=== PATIENT | male | born 1950 | race Caucasian/White ===

== ENCOUNTER → 2016-04-20 | Outpatient (CLI) | payer OTHER ==
[~2016-04-20] MED LIST: AMIO200T4 PO; ASPI81TA28 PO; ATOR-22 PO; CEFT1INJ26 IV; CPR250 PO; CSD50 PO; DGRI80 INJ; DUTA0.5C PO; ERGO500037 PO; FINA5TAB PO; FRS/40 PO; LNX25 PO; METO-217 PO; OXYC5TAB PO; PARO1TAB27 PO; PHEN-775 PO; POTA20TA16 PO; QUIN20TA30 PO; SULF800T23 PO; TAMS0.4C38 PO; TPRSR50 PO; XRL10 PO; ZNTT/150 PO
--- NOTE | 2016-04-20 15:41 | DIAGNOSTIC IMAGING REPORT ---
RENAL ULTRASOUND HISTORY: Follow-up HYDRONEPHROSIS COMPARISON: KUB 02/01/2016. Abdomen and pelvis CT 10/28/2015. FINDINGS: Right kidney: 11.5 cm. No hydronephrosis. Normal corticomedullary differentiation and cortical thickness. Left kidney: 9.1 cm. No hydronephrosis. Mild to moderate cortical thinning. Normal corticomedullary differentiation. Bladder: Bladder is decompressed and therefore not well evaluated. However, a distal portion of a ureteral stent is identified within the bladder. IMPRESSION: 1. The hydronephrosis has resolved. 2. Mild/moderate left renal atrophy, unchanged. 3. Bladder is not well evaluated due to underdistention. There appears to be a portion of a ureteral stent within the bladder. Electronically signed by: Stan Treviño M.D. 04/20/2016 3:39 PM Dictated Date/Time: 04/20/2016 3:36 PM
== END | disposition home or self-care (01) ==
LOC: C.ULTR 15:11
PROVIDERS: ATTEND Urology
DX: N13.30 Unspecified hydronephrosis (principal); R93.41 Abnormal radiologic findings on diagnostic imaging of renal pelvis, ureter, or bladder

== ENCOUNTER 2016-05-25 12:34 | Day surgery (SDC) | payer OTHER ==
[2016-05-16 09:50] VITALS: BMI 32.0
--- NOTE | 2016-05-16 10:28 | PAT Medication Instructions ---
Service Date May 16, 2016. Current Home Medication List Amiodarone Hcl (Cordarone), 200 MG PO QAM Atorvastatin (Lipitor), 1 TAB PO QAM Degarelix Acetate (Firmagon), 1 DOSE INJ MONTHLY Digoxin (Digoxin), 0.25 MG PO QAM Ergocalciferol (Vitamin D 77265 Unit), 1 CAP PO WK Finasteride (Proscar), 5 MG PO QAM Furosemide (Lasix), 40 MG PO BID Metoprolol Succinate (Toprol Xl), 50 MG PO QAM Paroxetine (Paxil), 10 MG PO QAM Potassium Ext Rel (Klor-Con), 20 MEQ PO QAM Quinapril Hcl (Quinapril Hcl), 1 TAB PO QAM Ranitidine (Zantac), 150 MG PO DAILY PRN for Dyspepsia Rivaroxaban (Xarelto), 15 MG PO QPM Tamsulosin Hcl (Flomax), 1 CAP PO HS Medication Instructions For Your Scheduled Surgery Degarelix Acetate (Firmagon), 1 DOSE INJ MONTHLY (continue as usual) Rivaroxaban (Xarelto), 15 MG PO QPM (Dr. Almeida's office will call with instructions) - Hold the following medications the morning of surgery: Quinapril Hcl (Quinapril Hcl), 1 TAB PO QAM Potassium Ext Rel (Klor-Con), 20 MEQ PO QAM Furosemide (Lasix), 40 MG PO BID Ergocalciferol (Vitamin D 88054 Unit), 1 CAP PO WK - Take the following medications the morning of surgery with a sip of water: Ranitidine (Zantac), 150 MG PO DAILY PRN for Dyspepsia Metoprolol Succinate (Toprol Xl), 50 MG PO QAM Paroxetine (Paxil), 10 MG PO QAM Finasteride (Proscar), 5 MG PO QAM Digoxin (Digoxin), 0.25 MG PO QAM Atorvastatin (Lipitor), 1 TAB PO QAM Amiodarone Hcl (Cordarone), 200 MG PO QAM - Take the following medications as scheduled the night before surgery: Tamsulosin Hcl (Flomax), 1 CAP PO HS Furosemide (Lasix), 40 MG PO BID If you have any questions please call us at [phone] or [phone] ( Jessica) or [phone]
--- NOTE | 2016-05-16 11:01 | DIAGNOSTIC IMAGING REPORT ---
CHEST PREADMISSION(PA/LAT) CLINICAL HISTORY: PAT preoperative evaluation COMPARISON STUDY: No previous studies for comparison. FINDINGS: The bones soft tissues and hemidiaphragms are normal. The cardiomediastinal silhouette is normal. The lungs are clear. The pulmonary vasculature is normal. IMPRESSION: Negative chest. Electronically signed by: Joey Ignacio M.D. 05/16/2016 10:59 AM Dictated Date/Time: 05/16/2016 10:59 AM
[2016-05-16 11:23] LABS: BASO % 0.2 %; BASO ABS # 0.01 K/uL (0-0.2); COMPLETE YES; EOS % 1.8 %; HEMATOCRIT 33.2 % (42-52); IG% 0.3 %; LYMPH % 5.7 %; LYMPH ABS # 0.37 K/uL (1.2-3.4); MEAN CELL VOLUME 84.3 fL (80-100); MEAN CORPUSCULAR HEMOGLOBIN 28.2 pg (25-34); MEAN CORPUSCULAR HGB CONC 33.4 g/dl (32-36); MEAN PLATELET VOLUME 8.6 fL (7.4-10.4); MONO % 10.3 %; NEUT % 81.7 %; PLATELET COUNT 245 K/uL (130-400); RED BLOOD COUNT 3.94 M/uL (4.7-6.1); WHITE BLOOD COUNT 6.51 K/uL (4.8-10.8)
[2016-05-16 11:49] LABS: URINE APPEARANCE TURBID (CLEAR); URINE BILIRUBIN NEG (NEG); URINE COLOR ORANGE; URINE EPITHELIAL CELL AUTO 0-5 /lpf (0-5); URINE NITRITE POS (NEG); URINE PH 6.5 (4.5-7.5); URINE SPECIFIC GRAVITY 1.022 (1.000-1.030); UROBILINOGEN NEG (NEG)
[2016-05-16 11:50] LABS: MANUAL MICROSCOPIC REQUIRED? NO; REVIEW REQ? YES
[2016-05-16 12:08] LABS: BUN/CREATININE RATIO 16.1 (10-20); CALCIUM 9.1 mg/dl (8.5-10.1); POTASSIUM 4.6 mmol/L (3.5-5.1)
[2016-05-16 12:13] LABS: PROSTATE SPECIFIC ANTIGEN 0.278 ng/ml (0.000-4.000)
[~2016-05-25] VITALS: Ht 170.2 cm; Wt 95.0 kg
[~2016-05-25 12:34] MED LIST changes: -ASPI81TA28 PO; +ATROPINE SULFATE 0.1 MG/ML 5ML SYR IV PRN; -CEFT1INJ26 IV; +CIPROFLOXACIN / D5W 400 MG IV SCH; -CPR250 PO; -CSD50 PO; -DUTA0.5C PO; +EpHEDrine SULFATE INJ 50 MG/ML AMP IV PRN; +FENTANYL CITRATE INJ 50 MCG/1 ML 2 ML VIAL IV PRN; +HYDROmorphone INJ 1 MG/ML SYR IV PRN; +LACTATED RINGER'S 1000ML 1,000 ML IV SCH; +ONDANSETRON INJ 2 MG/ML 2 ML VIAL IV PRN; -OXYC5TAB PO; -PHEN-775 PO; -SULF800T23 PO; -TPRSR50 PO
[2016-05-25] MEDS ORDERED: ASPI81TA28 PO (13:04)
[2016-05-25 13:08] VITALS: BP 159/72; PULSE 70; TEMP 36.8; O2SAT 99; Ht 170.2 cm; Wt 95.0 kg
--- NOTE | 2016-05-25 13:41 | History & Physical Bridge Note ---
H&P Re-Evaluation Bridge Note: I have examined the patient, reviewed the History & Physical and in the interval since the performance of the History & Physical I have noted the following changes of clinical significance: No changes noted
[2016-05-25] MEDS ORDERED: SULF800T23 PO (13:49)
[2016-05-25] MEDS ORDERED: VANCOMYCIN 1GM/270ML NSS ONE (13:52)
[2016-05-25] MEDS ORDERED: VANCOMYCIN 1GM/270ML NSS IV ONE (14:00)
[2016-05-25] MEDS ORDERED: LIDOCAINE HCL 2% 2 ML VIAL (20MG/ML) ONE (14:15)
[2016-05-25] MEDS ORDERED: PROPOFOL IV EMULSION 10 MG/ML 20 ML VIAL IV ONE (14:15)
[2016-05-25] MEDS ORDERED: FENTANYL CITRATE INJ 50 MCG/1 ML 2 ML VIAL ONE (14:15)
[2016-05-25] MEDS ORDERED: ONDANSETRON INJ 2 MG/ML 2 ML VIAL ONE (14:15)
[2016-05-25] MEDS ORDERED: MIDAZOLAM HCL 1 MG/ML 2ML VIAL ONE (14:15)
[2016-05-25] MEDS ORDERED: DEXAMETHASONE SOD INJ 4 MG/ML VIAL ONE (14:15)
[2016-05-25] MEDS ORDERED: CONRAY 30% 150ML BOTTLE ONE (15:11)
[2016-05-25] MEDS ORDERED: PHEN-775 PO (16:05)
--- NOTE | 2016-05-25 16:06 | Discharge Instructions ---
Discharge Instructions Date of Service May 25, 2016. Admission Reason for Admission: Advanced prostate cancer with ureteral obstruction Discharge Discharge Diagnosis / Problem: Bilateral stent exchange Discharge Goals Goal(s): Improve function, Improve disease control, Therapeutic intervention Activity Recommendations Activity Limitations: resume your previous activity Lifting Limitations: gradually increase as tolerated Exercise/Sports Limitations: rest today May Resume Sexual Activity: when tolerated Shower/Bathe: tomorrow Driving or Machine Use: resume 1 day after discharge . Discharge Diet Recommended Diet: Regular Diet (good fluid intake) Procedures Procedures Performed: cystoscopy, urethral dilation, bilateral ureteral stent exchange with right retrograde pyelography and left nephrostogram Pending Studies Studies pending at discharge: no Medical Emergencies . Who to Call and When: Medical Emergencies: If at any time you feel your situation is an emergency, please call 911 immediately. . Non-Emergent Contact Non-Emergency issues call your: Urologist Call Non-Emergent contact if: you have a fever, temperature is above 101, your pain is not controlled, your pain is worsening, your pain is unusual for you, your pain is concerning you, you have any medication questions . . "Provider Documentation" section prepared by Braxton Almeida. VTE Core Measure Inpt VTE Proph given/why not?: SCD's
--- NOTE | 2016-05-25 16:08 | [facility] Post Operative Brief Note ---
Immediate Operative Summary Operative Date May 25, 2016. Pre-Operative Diagnosis Advanced prostate cancer with bilateral ureteral obstruction, and indwelling bilateral ureteral stents Post-Operative Diagnosis Same, meatal stenosis Procedure(s) Performed Cystoscopy, urethral dilation, bilateral ureteral stent exchange with right retrograde pyelography and left nephrostogram Surgeon Dr.H. Almeida [employer] Airconditioning Mechanic Surgeon(s) NA Estimated Blood Loss 0ml Findings Good bilateral ureteral stent position after completion Specimens no specimens per surgeon Drains 7 fr 26 cm R ureteral stent, 7 fr 24 cm L ureteral stent, L nephrstmy cappd Anesthesia GALMA Complication(s) None Disposition Recovery Room / PACU
--- NOTE | 2016-05-25 16:11 | Anesthesiology Progress Note ---
Anesthesia Post Op Note Date & Time May 25, 2016 at 16:11 Vital Signs Pain Intensity: 0 Vital Signs Past 12 Hours Date Time Temp Pulse Resp B/P Pulse Ox O2 Delivery O2 Flow Rate FiO2 05/25/16 16:03 Nasal Cannula 3 05/25/16 16:00 73 18 157/72 100 Mask 5 05/25/16 15:50 71 18 151/76 100 Mask 10 05/25/16 15:47 37.1 72 18 130/74 100 Mask 10 05/25/16 13:08 36.8 70 20 159/72 99 Room Air Notes Mental Status: alert / awake / arousable, participated in evaluation Pt Amnestic to Procedure: Yes Nausea / Vomiting: adequately controlled Pain: adequately controlled Airway Patency, RR, SpO2: stable & adequate BP & HR: stable & adequate Hydration State: stable & adequate Anesthetic Complications: no major complications apparent
[2016-05-25] MEDS ORDERED: PHENAZOPYRIDINE HCL 200 MG TAB PO PRN (16:15)
[2016-05-25] MEDS ORDERED: OXYCODONE/ACETAMINOPHEN 5-325 TAB PO PRN (16:15)
[2016-05-25 16:30] VITALS: BP 153/72; PULSE 70; TEMP 37; O2SAT 94
[2016-05-25 17:00] VITALS: BP 125/64; PULSE 78; TEMP 36.6; O2SAT 100
--- NOTE | 2016-05-25 17:19 | DIAGNOSTIC IMAGING REPORT ---
FLUOROSCOPIC IMAGES FROM CYSTOSCOPY WITH BILATERAL STENT EXCHANGE CLINICAL HISTORY: Cystoscopy with stent exchange. COMPARISON STUDY: KUB May 08, 2016. Fluoroscopy time: 2 minutes and 4 seconds. FINDINGS: 11 fluoroscopic images were obtained. These images demonstrate bilateral ureteral stent exchange. A left-sided nephrostomy is likely in place. The stents are appropriately positioned. Moderate bilateral hydronephrosis is present. IMPRESSION: Fluoroscopic images demonstrating bilateral ureteral stent exchange. Electronically signed by: Lee Guo M.D. 05/25/2016 5:18 PM Dictated Date/Time: 05/25/2016 5:15 PM
[2016-05-25 17:30] VITALS: BP 122/69; PULSE 74; TEMP 36.6; O2SAT 100
--- NOTE | 2016-05-25 18:19 | OPERATIVE REPORT ---
DATE OF OPERATION: 05/25/2016 PREOPERATIVE DIAGNOSES: Advanced prostate cancer with bilateral indwelling ureteral stents, history of ureteral obstruction and renal failure. POSTOPERATIVE DIAGNOSES: Same, meatal stenosis. PROCEDURES: Cystoscopy, meatal dilation, bilateral ureteral stent exchange, right retrograde pyelography, and left-sided nephrostogram. SURGEON: Dr. Braxton Almeida. TOOL SETTER: None. ANESTHESIA: General anesthesia with laryngeal mask. COMPLICATIONS: None. ESTIMATED BLOOD LOSS: 0 mL. DRAINS LEFT IN PLACE: Include a 7-Thai 26 cm double-J ureteral stent on the right hand side, 7-Thai 24 cm double-J ureteral stent on the left hand side. Nephrostogram left in place and capped. FINDINGS: Good stent position on fluoroscopy bilaterally. BRIEF HISTORY: Mr. Castro is a pleasant 66-year-old male with a history of advanced prostate cancer and androgen deprivation therapy, currently undergoing pelvic radiation in a palliative fashion. He has a left-sided nephrostomy tube in place due to inability to place a stent earlier and an antegrade left double-J ureteral stent has been placed. He is here today for routine stent exchange due to the amount of time since his drains have been indwelling. He has been pretreated for Staphylococcus aureus infection and delayed from last week with Bactrim, which he has 3 more days at home. Please see H\T\P for further details. Intravenous ciprofloxacin and vancomycin provided for antibiotic coverage. SCDs used for DVT prophylaxis. DESCRIPTION OF PROCEDURE: The patient was properly identified and brought to the operative suite. After identification of appropriate consent on the chart, general anesthesia with laryngeal mask was initiated. The patient was prepped and draped in standard fashion for this procedure. critical care educator-out procedure was followed. A 22-Thai rigid cystoscope was attempted to be passed into the bladder, but met with resistance at the level of the meatus. This was dilated using male sounds to 26-Thai caliber, which then allowed for easy passage of the scope. Normal urethra was appreciated and prostate was noted to be obstructive with lateral lobe hypertrophy and a mild median lobe. At the level of the bladder neck, some edema was present, left greater than right. Both stents could be visualized within the bladder. No other mucosal changes other than the inflammatory ones and some evidence of bladder neck invasion from the prostate were appreciated. Right-sided ureteral stent was grasped and brought down to the level of the meatus. This was cannulated using a sensor tip wire, which was advanced without resistance or difficulties up to the level of the right renal pelvis. Open ended 5-Thai catheter was advanced and right collecting system was opacified. This was noted to be relatively undilated. A 7-Thai 26 cm double-J ureteral stent was advanced with a good full coil within the renal pelvis and a full coil present within the bladder. Attention was turned to the left hand side, where the antegrade placed stent was advanced, was grasped and brought down to the level of the meatus. This was cannulated using open ended catheter, which was advanced without difficulties up to the level of the left renal pelvis. However, attempts at passing a 5-Thai open ended catheter met with resistance in the distal ureter. Nephrostogram was performed to opacify the collecting system demonstrating a mildly full left sided collecting system with some contrast draining into the ureter. A 7-Thai 24 cm double-J ureteral stent was advanced with a full coil present within the renal pelvis and a full coil present within the bladder. Bladder was drained and cystoscope was removed. Nephrostomy was capped to allow for drainage via the bladder. Anesthesia was reversed. The patient was transferred to recovery room in stable condition. FOLLOWUP CARE: The patient will be discharged home with nephrostomy cap as long as he is able to void. We will plan on seeing him in our office at his scheduled postoperative visit and remove the nephrostomy at that time if he is doing well. The patient is to complete Bactrim as scheduled and Pyridium provided for bladder irritation should it be present. The patient is instructed to contact us should he note any fevers, chills, nausea, vomiting or other significant difficulties in the postoperative period. I attest to the content of the Intraoperative Record and any orders documented therein. Any exceptio ns are noted below.
== END 2016-05-25 17:45 | disposition home or self-care (01) ==
LOC: C.ACU 12:34
PROVIDERS: ATTEND Urology
DX: C61 Malignant neoplasm of prostate (principal); Z46.6 Encounter for fitting and adjustment of urinary device; N13.8 Other obstructive and reflux uropathy; N32.0 Bladder-neck obstruction; N35.9 Urethral stricture, unspecified; N19 Unspecified kidney failure

== ENCOUNTER 2016-06-09 12:56 | Inpatient (IN) | payer OTHER ==
[2016-06-09] VITALS (12 sets, daily range): BP systolic 74–138; BP diastolic 54–83; PULSE 99–128; TEMP 36.8–39.5; O2SAT 79–98; Ht 170.2 cm; Wt 93.0 kg
[~2016-06-09] VITALS: Ht 170.2 cm; Wt 93.0 kg
[~2016-06-09 12:56] MED LIST changes: -AMIO200T4 PO; +ASPI81TA28 PO; -ATROPINE SULFATE 0.1 MG/ML 5ML SYR IV PRN; -CIPROFLOXACIN / D5W 400 MG IV SCH; -EpHEDrine SULFATE INJ 50 MG/ML AMP IV PRN; -FENTANYL CITRATE INJ 50 MCG/1 ML 2 ML VIAL IV PRN; -HYDROmorphone INJ 1 MG/ML SYR IV PRN; -LACTATED RINGER'S 1000ML 1,000 ML IV SCH; -ONDANSETRON INJ 2 MG/ML 2 ML VIAL IV PRN; +SULF800T23 PO
[2016-06-09] MEDS ORDERED: AMIODARONE 150MG / 100ML D5W IV STA (13:28)
[2016-06-09] MEDS ORDERED: SODIUM CHLORIDE 0.9% 1000ML 1,000 ML IV STA (13:28)
[2016-06-09] MEDS ORDERED: IMIPENEM/CILASTATIN IV 500 MG in DEXTROSE 5% 100ML 100 ML IV STA ×2 (13:30→15:26)
[2016-06-09 13:38] LABS: BASO % 0.1 %; BASO ABS # 0.01 K/uL (0-0.2); COMPLETE YES; HEMATOCRIT 34.4 % (42-52); IG% 0.4 %; LYMPH % 4.2 %; LYMPH ABS # 0.59 K/uL (1.2-3.4); MEAN CELL VOLUME 84.3 fL (80-100); MEAN CORPUSCULAR HEMOGLOBIN 28.2 pg (25-34); MEAN CORPUSCULAR HGB CONC 33.4 g/dl (32-36); MEAN PLATELET VOLUME 8.7 fL (7.4-10.4); MONO % 3.7 %; NEUT % 91.6 %; PLATELET COUNT 296 K/uL (130-400); RED BLOOD COUNT 4.08 M/uL (4.7-6.1); WHITE BLOOD COUNT 14.14 K/uL (4.8-10.8)
[2016-06-09 13:46] LABS: INR 1.1 (0.9-1.1); PARTIAL THROMBOPLASTIN RATIO 1.2; PROTHROMBIN TIME (PATIENT) 12.2 SECONDS (9.0-12.0)
[2016-06-09 13:49] LABS: BUN/CREATININE RATIO 14.7 (10-20); CALCIUM 9.2 mg/dl (8.5-10.1); CREATININE 3.7 mg/dl (0.60-1.40); POTASSIUM 4.9 mmol/L (3.5-5.1)
[2016-06-09 13:52] LABS: ALB/GLOB RATIO 0.7 (0.9-2)
[2016-06-09] MEDS ORDERED: ACETAMINOPHEN 325 MG TAB PO STA (14:01)
[2016-06-09] MEDS ORDERED: ACETAMINOPHEN 325 MG TAB ONE (14:02)
[2016-06-09 14:04] LABS: ISTAT CREATININE 3.5 mg/dl (0.6-1.3); ISTAT HEMOGLOBIN 11.9 g/dl (14.0-18.0); ISTAT IONIZED CALCIUM 1.1 mmol/l (1.12-1.32)
--- NOTE | 2016-06-09 14:38 | History and Physical ---
History & Physical Date & Time of Service: Jun 09, 2016 at 14:19 Chief Complaint: Fever,Vomiting,Diarrhea,Abd Pain,Cannot Void Primary Care Physician: Sina Klein M.D. History of Present Illness Source: patient, spouse On June 05, patient had left external nephrostomy tube removed by Dr. Grant ( urology), internal stent still in situ. Stents were inserted in Dec 2015 due to prostate cancer causing hydronephrosis of left kidney. denies surgical or immediate post op complications. Patient was well until 2-3 days ago. He felt something was off when he woke up yesterday morning. He started feeling nauseous with dry heaves, dizziness, headache. Pain on urination had been present since before yesterday, but was now also felt suprapubically and was associated with bilateral flank pain. Patient feels fever-kathrin but temperature was unmeasured and he also started feeling chills over the last couple of days. Patient has also had diarrhea since this morning. Patient denies hematuria or hematochezia. Patient denies urethral discharge or scrotal pain. has been doing dressing changes and denies discharge from surgical wound. Patient has history a.fib but was not symptomatic this time. He did have some shortness of breath, which he attributes to his pain rather than a.fib. Patient otherwise denies chest pain, pre-syncope, LOC, or falls. Of note, patient was severely hypotensive on presentation to ED: BP 67/47. Note: patient denies having DM Family History Diabetes mellitus Heart disease Hypertension Prostate cancer Social History Smoking Status: Never Smoker Drug Use: none Marital Status: Housing status: lives with family Occupational Status: disabled Allergies Coded Allergies: No Known Allergies (Unverified , 06/09/16) Home Medications Scheduled Aspirin (Aspirin Ec), 81 MG PO DAILY Atorvastatin (Lipitor), 1 TAB PO QAM Degarelix Acetate (Firmagon), 1 DOSE INJ MONTHLY Digoxin (Digoxin), 0.25 MG PO QAM Ergocalciferol (Vitamin D 85085 Unit), 1 CAP PO WK Finasteride (Proscar), 5 MG PO QAM Furosemide (Lasix), 40 MG PO BID Metoprolol Succinate (Toprol Xl), 50 MG PO QAM Paroxetine (Paxil), 10 MG PO QAM Potassium Ext Rel (Klor-Con), 20 MEQ PO QAM Quinapril Hcl (Quinapril Hcl), 1 TAB PO QAM Rivaroxaban (Xarelto), 15 MG PO QPM Tamsulosin Hcl (Flomax), 1 CAP PO HS Scheduled PRN Ranitidine (Zantac), 150 MG PO DAILY PRN for Dyspepsia Review of Systems Constitutional: + chills, + sweats, No fever Respiratory: + shortness of breath, No cough, No sputum Cardiovascular: + PND, No chest pain, No orthopnea, No palpitations Abdomen: + diarrhea, + nausea, + pain, No GI bleeding, No constipation, No vomiting Genitourinary - Male: + dysuria, + urinary frequency, + urinary hesitancy, No hematuria Integumentary: No itch, No rash Allergic / Immunologic: No environmental allergies, No food allergies, No seasonal allergies Physical Exam Vital Signs Date Time Temp Pulse Resp B/P Pulse Ox O2 Delivery O2 Flow Rate FiO2 06/09/16 13:58 150 06/09/16 13:48 93 Room Air 06/09/16 13:02 38.1 129 22 67/47 96 Room Air General Appearance: WD/WN, + mild distress Head: normocephalic, atraumatic Eyes: normal inspection, EOMI, sclerae normal ENT: pharynx normal Neck: supple, no adenopathy Respiratory/Chest: lungs clear, normal breath sounds, no respiratory distress, no accessory muscle use Cardiovascular: no JVD, no murmur, + irregularly irregular Abdomen/GI: normal bowel sounds, + tenderness, + distended Extremities/Musculoskelatal: no calf tenderness, no pedal edema Neurologic/Psych: alert, normal mood/affect, oriented x 3 Skin: warm/dry, no rash, + pertinent finding (skin changes - multiple superficial veins visible) Diagnostics Laboratory Results Results Past 24 Hours Test 06/09/16 13:15 06/09/16 13:26 06/09/16 13:48 Range/Units White Blood Count 14.14 4.8-10.8 K/uL Red Blood Count 4.08 4.7-6.1 M/uL Hemoglobin 11.5 14.0-18.0 g/dL Hematocrit 34.4 42-52 % Mean Corpuscular Volume 84.3 80-100 fL Mean Corpuscular Hemoglobin 28.2 25-34 pg Mean Corpuscular Hemoglobin Concent 33.4 32-36 g/dl Platelet Count 296 130-400 K/uL Mean Platelet Volume 8.7 7.4-10.4 fL Neutrophils (%) (Auto) 91.6 % Lymphocytes (%) (Auto) 4.2 % Monocytes (%) (Auto) 3.7 % Eosinophils (%) (Auto) 0.0 % Basophils (%) (Auto) 0.1 % Neutrophils # (Auto) 12.97 1.4-6.5 K/uL Lymphocytes # (Auto) 0.59 1.2-3.4 K/uL Monocytes # (Auto) 0.52 0.11-0.59 K/uL Eosinophils # (Auto) 0.00 0-0.5 K/uL Basophils # (Auto) 0.01 0-0.2 K/uL RDW Standard Deviation 55.5 36.4-46.3 fL RDW Coefficient of Variation 17.9 11.5-14.5 % Immature Granulocyte % (Auto) 0.4 % Immature Granulocyte # (Auto) 0.05 0.00-0.02 K/uL Nucleated RBC Absolute Count (auto) 0.02 0-0 K/uL Nucleated Red Blood Cells % 0.1 % Prothrombin Time 12.2 9.0-12.0 SECONDS Prothromb Time International Ratio 1.1 0.9-1.1 Activated Partial Thromboplast Time 30.7 21.0-31.0 SECONDS Partial Thromboplastin Ratio 1.2 Sodium Level 134 136-145 mmol/L Potassium Level 4.9 3.5-5.1 mmol/L Chloride Level 100 98-107 mmol/L Carbon Dioxide Level 23 21-32 mmol/L Anion Gap 11.0 19.0 16-25 mmol/L Blood Urea Nitrogen 55 7-18 mg/dl Creatinine 3.70 0.60-1.40 mg/dl Est Creatinine Clear Calc Drug Dose 21.0 ml/min Estimated GFR () 18.9 Estimated GFR (Non- 16.3 BUN/Creatinine Ratio 14.7 10-20 Random Glucose 152 70-99 mg/dl Calcium Level 9.2 8.5-10.1 mg/dl Total Bilirubin 1.0 0.2-1 mg/dl Aspartate Amino Transf (AST/SGOT) 15 15-37 U/L Alanine Aminotransferase (ALT/SGPT) 29 12-78 U/L Alkaline Phosphatase 57 45-117 U/L Total Protein 7.8 6.4-8.2 gm/dl Albumin 3.1 3.4-5.0 gm/dl Globulin 4.7 2.5-4.0 gm/dl Albumin/Globulin Ratio 0.7 0.9-2 Digoxin Level 0.4 0.8-2.0 ng/ml Bedside Lactic Acid Venous 2.34 0.90-1.70 mmol/L Bedside Hemoglobin 11.9 14.0-18.0 g/dl Bedside Hematocrit 35 42-52 % Bedside Sodium 136 135-144 mEq/L Bedside Potassium 4.9 3.3-5.0 mEq/L Bedside Chloride 102 101-112 mEq/L Bedside Total CO2 21 24-31 mEq/l Bedside Blood Urea Nitrogen 54 7-18 mg/dl Bedside Creatinine 3.5 0.6-1.3 mg/dl Bedside Glucose (other) 130 70-99 mg/dl Bedside Ionized Calcium ([place]) 1.10 1.12-1.32 mmol/l Microbiology Results 06/09/16 Blood Culture, Received Pending 06/09/16 Blood Culture, Received Pending CXR normal EKG Atrial fibrillation with rapid ventricular response ST & T wave abnormality, consider inferior ischemia ST & T wave abnormality, consider anterolateral ischemia Abnormal ECG When compared with ECG of 16-MAY-2016 10:28, Atrial fibrillation has replaced Sinus rhythm Vent. rate has increased BY [address] now depressed in Anterior leads T wave inversion now evident in Inferior leads T wave inversion more evident in Anterolateral leads Impression Assessment and Plan 66 year old man with prostate cancer and bilateral ureteric stents admitted to hospital with sepsis. Sepsis - IV imipenem/cilastatin + IV vancomycin - mIVF NSS @ 200ml/hr - Monitor CBC - BCx and UCx sent, results pending Hypotension - Hold antihypertensives: quinapril and furosemide - NSS bolus 500ml and then mIVF NSS 200ml/hr Afib - Cardio consult - Echo - Continue metoprolol 50mg qAM, digoxin 0.25mg qAM, rivaroxaban 15mg qPM LINDA - elevated creatinine from baseline - Urology consult - Strict I/O - Monitor BMP CAD s/p stent 16 - Cont aspirin 81mg daily, atorvastatin 20mg qAM Prostate Ca - monthly chemo not due until next week DVT prophylaxis - Not indicated since on rivaroxaban Code status: full code Dispo: ICU Level of Care Telemetry Advanced Directives Existing Advance Directive: No Existing Living Will: No Existing Power of Assistant Operator: No Existing Health Care Proxy: No Resuscitation Status FULL RESUSCITATION VTE Prophylaxis VTE Risk Assessment Done? Y/N: Yes Risk Level: Moderate Given or contraindicated: Treatment not indicated (on rivaroxaban) Social Service Consult None Apply Resident Tracking Resident Involvement: Resident Care Provided Care Provided: Adult [facility] Medicine Assessment and Plan (1) MSSA (methicillin susceptible Staphylococcus aureus) septicemia (2) UTI (urinary tract infection) due to urinary indwelling catheter (3) Atrial fibrillation with RVR (4) Advance care planning Attending Addendum: I have physically seen and examined this patient, have directed their medical care, have supervised the medical residents activities, and agree with the H&P as noted above, with the following changes: NONE
[2016-06-09] MEDS ORDERED: MAGNESIUM HYDROXIDE SUSP 30 ML UDC PO PRN (15:15)
[2016-06-09] MEDS ORDERED: ALUMINUM/MAGNESIUM/SIMETH (MAALOX MAX) 30 ML UDC PO PRN (15:15)
[2016-06-09] MEDS ORDERED: POLYETHYLENE (MIRALAX) 17 GM PACK PO PRN (15:15)
[2016-06-09] MEDS ORDERED: MoRPHine SULFATE 2 MG/ML CARP IV PRN (15:15)
[2016-06-09] MEDS ORDERED: ONDANSETRON INJ 2 MG/ML 2 ML VIAL IV PRN (15:15)
[2016-06-09] MEDS ORDERED: RANITIDINE HCL 150 MG TAB PO PRN (15:15)
--- NOTE | 2016-06-09 15:28 | DIAGNOSTIC IMAGING REPORT ---
CHEST ONE VIEW PORTABLE CLINICAL HISTORY: Sepsis dyspnea COMPARISON STUDY: 05/16/2016 FINDINGS: Moderate stable cardiomegaly. Lungs are clear. Diaphragms smooth. IMPRESSION: Moderate stable cardiomegaly. The lungs are clear. Electronically signed by: Joey Ignacio M.D. 06/09/2016 3:26 PM Dictated Date/Time: 06/09/2016 3:25 PM
[2016-06-09 15:36] LABS: URINE APPEARANCE TURBID (CLEAR); URINE BILIRUBIN NEG (NEG); URINE COLOR YELLOW; URINE EPITHELIAL CELL AUTO >30 /lpf (0-5); URINE NITRITE POS (NEG); URINE PH 6.5 (4.5-7.5); UROBILINOGEN NEG (NEG)
[2016-06-09 15:38] LABS: MANUAL MICROSCOPIC REQUIRED? NO; REVIEW REQ? YES
[2016-06-09] MEDS ORDERED: VANCOMYCIN CONSULT ACTIVE PRN (15:45)
[2016-06-09] MEDS ORDERED: ACETAMINOPHEN 325 MG TAB PO PRN (16:00)
[2016-06-09] MEDS ORDERED: SODIUM CHLORIDE 0.9% 500ML 500 ML IV ONE (16:00)
[2016-06-09] MEDS ORDERED: VANCOMYCIN INJ 1,700 MG in SODIUM CHLORIDE 0.9% 500ML 500 ML IV SCH (16:30)
--- NOTE | 2016-06-09 16:37 | Cardiology Consultation ---
Cardiology Consultation Date of Consultation: Jun 09, 2016. Requesting Physician: Dr. Felder Reason for Consultation: AF, hypotension Pt evaluation today including: conversation w/ patient, conversation w/ family , physical exam, lab review, review of studies, review of inpatient medication list, conversation w/ attending History of Present Illness This is a very pleasant 66 year old gentleman who has had his cardiac care in the [facility]. He presented here with hypotension. He is awake and alert and can provide some history, although a lot of the history is from his . He has been having difficulty with urologic issues including urine ostomy tubes and stent placement recently. From the cardiovascular standpoint he has evidently a long history of atrial fibrillation, a number of years ago he evidently had left ventricular dysfunction (although the family is not too familiar with it) and was wearing a LifeVest. Evidently his cardiac function improved and the LifeVest was discontinued and an ICD was not recommended. He is not very aware of his atrial arrhythmia, apparently it was identified when he went in for routine test. He does not seem to have palpitations or other symptoms related to it. He was having a several week history of weakness and a 24-hour history of nausea , dizziness and dysuria. He has been feeling chills and feverish for several days as well, he has had diarrhea. He has not had chest discomfort. On arrival in the emergency room he was noted to have hypotension with a pressure of 67/47, and a rapid heart rate. He has been treated with beta- blockade and intravenous amiodarone for rate control. Prior to admission he was taking digoxin 0.25 mg daily (although his level is very low) as well as metoprolol succinate 50 mg daily and Xarelto 15 mg at bedtime which he took yesterday. Past Medical/Surgical History (1) Prostate cancer Paroxysmal atrial fibrillation Probable nonischemic cardiomyopathy Family History Diabetes mellitus Heart disease Hypertension Prostate cancer Social History Smoking Status: Never Smoker History of Alcohol Use: No Review of Systems Constitutional: + chills, + fever, + see HPI, + weakness, No weight loss Respiratory: No cough, No dyspnea on exertion, No shortness of breath, No wheezing Cardiac: No PND, No chest pain, No edema, No orthopnea, No palpitations Abdomen: No GI bleeding, No diarrhea, No nausea, No pain, No vomiting Male : + dysuria, + see HPI, No nocturia more than once/night, No sexual dysfunction, No slowing stream, No urinary frequency Neurologic: No balance problems, No numbness/tingling, No paralysis, No weakness Heme: No abnormal bleeding/bruising, No clotting problems Endo: No fatigue Skin: No problem reported All Other Systems: Reviewed and Negative Allergies Coded Allergies: No Known Allergies (Unverified , 06/09/16) Medications Current Inpatient Medications Medications (Trade) Dose Ordered Sig/Richard Route Start Time Stop Time Status Last Admin Dose Admin Acetaminophen (Tylenol Tab) 650 mg Q4H PRN PO 06/09/16 15:15 07/09/16 15:14 Al Hydrox/Mg Hydrox/Simethicone (Maalox Max Susp) 15 ml Q4H PRN PO 06/09/16 15:15 07/09/16 15:14 Magnesium Hydroxide (Milk Of Magnesia Susp) 30 ml Q12H PRN PO 06/09/16 15:15 07/09/16 15:14 Ondansetron HCl (Zofran Inj) 4 mg Q6H PRN IV 06/09/16 15:15 07/09/16 15:14 Morphine Sulfate (MoRPHine SULFATE INJ) 2 mg Q30M PRN IV 06/09/16 15:15 06/23/16 15:14 Polyethylene (Miralax Powder Packet) 17 gm DAILY PRN PO 06/09/16 15:15 07/09/16 15:14 Aspirin (Ecotrin Tab) 81 mg DAILY PO 06/10/16 09:00 07/10/16 08:59 Atorvastatin Calcium (Lipitor Tab) 20 mg QAM PO 06/10/16 09:00 07/10/16 08:59 Digoxin (Lanoxin Tab) 0.25 mg DAILY@1600 PO 06/10/16 16:00 07/10/16 15:59 Ergocalciferol (Vitamin D Cap) 50,000 interunit Q7D PO 06/14/16 09:00 07/14/16 08:59 Finasteride (Proscar Tab) 5 mg QAM PO 06/10/16 09:00 07/10/16 08:59 Metoprolol Succinate (Toprol Xl Tab) 50 mg QAM PO 06/10/16 09:00 07/10/16 08:59 Paroxetine HCl (pAXil TAB) 10 mg QAM PO 06/10/16 09:00 07/10/16 08:59 Potassium Chloride (Klor-Con Tab) 20 meq QAM PO 06/10/16 09:00 07/10/16 08:59 Ranitidine HCl (zANTac TAB) 150 mg DAILY PRN PO 06/09/16 15:15 07/09/16 15:14 Rivaroxaban (Xarelto Tab) 15 mg QPM PO 06/09/16 21:00 07/09/16 20:59 UNV Tamsulosin HCl 0.4 mg 0.4 mg HS PO 06/09/16 21:00 07/09/16 20:59 Vancomycin HCl 1700 mg/Sodium Chloride 534 ml @ 200 mls/hr TODAY@1630 IV 06/09/16 16:30 06/09/16 23:59 06/09/16 16:20 200 MLS/HR Imipenem/ Cilastatin Sodium 500 mg/Dextrose 110 ml @ 100 mls/hr NOW STAT IV 06/09/16 15:26 06/09/16 16:31 UNV Sodium Chloride (Nss 1000ml) 1,000 ml @ 200 mls/hr Q5H IV 06/09/16 15:30 07/09/16 15:29 UNV Vancomycin HCl 1 ea 1 ea UD PRN N/A 06/09/16 15:45 07/09/16 15:44 06/09/16 16:20 1 EA Sodium Chloride (Nss 500ml) 500 ml @ 999 mls/hr Q31M IV 06/09/16 16:00 07/09/16 15:59 UNV Acetaminophen (Tylenol Tab) 650 mg Q4H PRN PO 06/09/16 16:00 07/09/16 15:59 UNV Physical Exam Vital Signs Past 12 Hours Date Time Temp Pulse Resp B/P Pulse Ox O2 Delivery O2 Flow Rate FiO2 06/09/16 16:00 37.1 112 18 78/58 96 Room Air 06/09/16 15:45 118 18 63/49 94 Room Air 06/09/16 14:56 37.3 105 22 92/51 95 Room Air 06/09/16 14:45 115 20 92/51 95 Room Air 06/09/16 14:31 107 17 69/43 94 06/09/16 14:16 118 21 116/73 91 06/09/16 14:00 118 22 111/88 95 Room Air 06/09/16 13:58 150 06/09/16 13:55 111 23 96/46 94 Room Air 06/09/16 13:48 93 Room Air 06/09/16 13:45 114 21 95/39 95 Room Air 06/09/16 13:41 132 28 64/46 96 Room Air 06/09/16 13:31 131 26 93/53 93 Room Air 06/09/16 13:26 123 23 79/51 93 Room Air 06/09/16 13:22 67/52 06/09/16 13:02 38.1 129 22 67/47 96 Room Air Constitutional: General Apperance: heathly-appearing Level of Distress: moderate distress Psychiatric: Mental Status: active & alert Head: normocephalic Eyes: EOM: EOMI ENMT: normal ENT inspection, hearing grossly normal Neck: supple, no masses Lungs: Respiratory effort: no dyspnea, good air movement Auscultation: breath sounds normal, no wheezing Cardiovascular: Heart Auscultation: no murmurs, no rubs, no gallops, irregular rate rhythm Peripheral Pulses: Bruits: none appreciated Abdomen: Bowel Sounds: normal Inspection & Palpation: soft, no tenderness, guarding & rebound, no masses Musculoskeletal: normal strength (5/5 throughout) Extremities: no edema Neurologic: Cranial Nerves: grossly intact Sensation: grossly intact Data Laboratory Results: Last 24 Hours Test 06/09/16 13:15 06/09/16 13:26 06/09/16 13:48 06/09/16 14:44 White Blood Count 14.14 K/uL Red Blood Count 4.08 M/uL Hemoglobin 11.5 g/dL Hematocrit 34.4 % Mean Corpuscular Volume 84.3 fL Mean Corpuscular Hemoglobin 28.2 pg Mean Corpuscular Hemoglobin Concent 33.4 g/dl Platelet Count 296 K/uL Mean Platelet Volume 8.7 fL Neutrophils (%) (Auto) 91.6 % Lymphocytes (%) (Auto) 4.2 % Monocytes (%) (Auto) 3.7 % Eosinophils (%) (Auto) 0.0 % Basophils (%) (Auto) 0.1 % Neutrophils # (Auto) 12.97 K/uL Lymphocytes # (Auto) 0.59 K/uL Monocytes # (Auto) 0.52 K/uL Eosinophils # (Auto) 0.00 K/uL Basophils # (Auto) 0.01 K/uL RDW Standard Deviation 55.5 fL RDW Coefficient of Variation 17.9 % Immature Granulocyte % (Auto) 0.4 % Immature Granulocyte # (Auto) 0.05 K/uL Nucleated RBC Absolute Count (auto) 0.02 K/uL Nucleated Red Blood Cells % 0.1 % Prothrombin Time 12.2 SECONDS Prothromb Time International Ratio 1.1 Activated Partial Thromboplast Time 30.7 SECONDS Partial Thromboplastin Ratio 1.2 Sodium Level 134 mmol/L Potassium Level 4.9 mmol/L Chloride Level 100 mmol/L Carbon Dioxide Level 23 mmol/L Anion Gap 11.0 mmol/L 19.0 mmol/L Blood Urea Nitrogen 55 mg/dl Creatinine 3.70 mg/dl Est Creatinine Clear Calc Drug Dose 21.0 ml/min Estimated GFR () 18.9 Estimated GFR (Non- 16.3 BUN/Creatinine Ratio 14.7 Random Glucose 152 mg/dl Calcium Level 9.2 mg/dl Total Bilirubin 1.0 mg/dl Aspartate Amino Transf (AST/SGOT) 15 U/L Alanine Aminotransferase (ALT/SGPT) 29 U/L Alkaline Phosphatase 57 U/L Troponin I 0.033 ng/ml Total Protein 7.8 gm/dl Albumin 3.1 gm/dl Globulin 4.7 gm/dl Albumin/Globulin Ratio 0.7 Digoxin Level 0.4 ng/ml Bedside Lactic Acid Venous 2.34 mmol/L Bedside Hemoglobin 11.9 g/dl Bedside Hematocrit 35 % Bedside Sodium 136 mEq/L Bedside Potassium 4.9 mEq/L Bedside Chloride 102 mEq/L Bedside Total CO2 21 mEq/l Bedside Blood Urea Nitrogen 54 mg/dl Bedside Creatinine 3.5 mg/dl Bedside Glucose (other) 130 mg/dl Bedside Ionized Calcium ([place]) 1.10 mmol/l Urine Color YELLOW Urine Appearance TURBID Urine pH 6.5 Urine Specific [place] 1.010 Urine Protein 3+ Urine Glucose (UA) NEG Urine Ketones NEG Urine Occult Blood 3+ Urine Nitrite POS Urine Bilirubin NEG Urine Urobilinogen NEG Urine Leukocyte Esterase LARGE Urine WBC (Auto) >30 /hpf Urine RBC (Auto) >30 /hpf Urine Hyaline Casts (Auto) 10-30 /lpf Urine Epithelial Cells (Auto) >30 /lpf Urine Bacteria (Auto) NEG Urine Pathogenic Casts /lpf Test 06/09/16 15:06 Imaging: An echocardiogram was done in the emergency room and I reviewed it at bedside. Final report will follow. There does not appear to be any effusion, his left ventricular function appears good with no obvious wall motion abnormalities and no significant valvular abnormalities. EKG: Atrial fibrillation with a rapid ventricular response, lateral ST-T abnormalities. Assessment & Plan #1. Atrial fibrillation with a rapid ventricular response: I can't tell a long he has been in the atrial fibrillation, and electrocardiogram from about one month ago showed sinus rhythm and I believe his arrhythmia is paroxysmal. He has been anticoagulated with Xarelto. Certainly he would be better off hemodynamically in sinus rhythm by don't think we need to consider like to go cardioversion now unless we have further difficulty with hypotension. I think would be worthwhile to continue his amiodarone however, he received a loading dose and I will put him on a drip. I am going to give him one dose of digoxin 0.25 mg since his level is low, but I won't put him on a daily dose until his creatinine improves and I'm going to hold off on beta blockade until his blood pressure improves, at that point we probably should reinstitute it. If he becomes unstable we can certainly perform cardioversion. I will hold off on anticoagulation now, he should be adequately anticoagulated at this point and probably overnight as well based on his last dose of Xarelto yesterday, after that we will probably have to add heparin if he remains in atrial fibrillation. #2. Cardiomyopathy: Based on his history it sounds as though he had a cardiomyopathy, but it appears to have recovered and his echo shows good left ventricular function. I don't think we have to do anything specifically regarding that, and it looks as though he could tolerate fluids as needed. I don 't know the cause of his cardiomyopathy, it is possible it was atrial fibrillation with rapid heart rates in the past. He does not have evidence or a history of ischemic heart disease. #3. Hypotension: The cause of his hypotension is most likely sepsis, it does not appear to be cardiogenic. Thank you for allowing me to participate in his care.
[2016-06-09] MEDS ORDERED: AMIODARONE IV BOLUS / DRIP IV STA (16:40)
[2016-06-09 16:47] LABS: ZZUR CULT IF INDIC CLEAN CATCH YES
[2016-06-09] MEDS ORDERED: FUROSEMIDE 40 MG TAB PO SCH (17:00)
[2016-06-09] MEDS ORDERED: AMIODARONE / D5W 200 ML IV SCH (17:15)
[2016-06-09] MEDS ORDERED: DIGOXIN IV 250 MCG in SYRINGE 9 ML IV ONE (17:30)
--- NOTE | 2016-06-09 17:48 | EMERGENCY ROOM VISIT NOTE ---
History Report prepared by Irlanda: Satni Hooks Under the Supervision of: Dr. Franko Velasquez M.D. First contact with patient: 13:21 Chief Complaint: INFECTION Stated Complaint: FEVER,VOMITING,DIARRHEA,ABD PAIN,CANNOT VOID Nursing Triage Summary: Pt had a colostomy removed by Dr. Almeida on 06-05. Pt has not been feeling well since sunday. Pt stated that yesterday he became very lethargic. Experinced nausea, vomiting, diarrhea, chills and fever. Pt reports his fever to be 99.8. Pt also has buring with urination since Sunday. Pt states he has pain in both left and right flank areas. History of Present Illness The patient is a 66 year old male who presents to the Emergency Room with complaints of a persistent illness that started around 4 to 5 days ago. He thinks he has an infection. The patient says his symptoms have included lightheadedness, chills, shortness of breath, fevers, coughing, dry heaves, and painful urination. The patient also had an episode of vomiting yesterday. Per the patient's , the patient has prostate cancer, and it was so large that the patient's kidneys were shutting down, so he had to have stents and a left nephrostomy tube placed. The patient had his nephrostomy tube removed on May 29 in his left kidney. The patient has had some pain from that, but the patient 's pain and illness have worsened the past few days. The patient still has 2 ureteral stents. The patient's also notes that the patient has been more confused than baseline for the past few days. The patient denies any chest pain or loss of consciousness. He has a history of atrial fibrillation. Source of History: patient, spouse/significant other, nursing staff Onset: 4 to 5 days ago Position: other (global - illness) Quality: other (fever and malaise) Timing: worsening, other (persistent) Modifying Factors (Relieving): other (none) Associated Symptoms: + SOB, + chills, + fevers, + urinary symptoms (painful urination), + vomiting, No LOC, No chest pain Note: Associated symptoms: Per , patient has been much more confused than baseline. Dizziness, lightheadedness, dry heaves. Review of Systems See HPI for pertinent positives & negatives. A total of 10 systems reviewed and were otherwise negative. Past Medical & Surgical Medical Problems: (1) Prostate cancer (2) Sepsis Family History Diabetes mellitus Heart disease Hypertension Prostate cancer Social History Smoking Status: Never Smoker Drug Use: none Marital Status: Housing Status: lives with significant other Occupation Status: disabled Current/Historical Medications Scheduled Aspirin (Aspirin Ec), 81 MG PO DAILY Atorvastatin (Lipitor), 1 TAB PO QAM Degarelix Acetate (Firmagon), 1 DOSE INJ MONTHLY Digoxin (Digoxin), 0.25 MG PO QAM Ergocalciferol (Vitamin D 69704 Unit), 1 CAP PO WK Finasteride (Proscar), 5 MG PO QAM Furosemide (Lasix), 40 MG PO BID Metoprolol Succinate (Toprol Xl), 50 MG PO QAM Paroxetine (Paxil), 10 MG PO QAM Potassium Ext Rel (Klor-Con), 20 MEQ PO QAM Quinapril Hcl (Quinapril Hcl), 1 TAB PO QAM Rivaroxaban (Xarelto), 15 MG PO QPM Tamsulosin Hcl (Flomax), 1 CAP PO HS Scheduled PRN Ranitidine (Zantac), 150 MG PO DAILY PRN for Dyspepsia Allergies Coded Allergies: No Known Allergies (Unverified , 06/09/16) Physical Exam Vital Signs Date Time Temp Pulse Resp B/P Pulse Ox O2 Delivery O2 Flow Rate FiO2 06/09/16 16:00 37.1 112 18 78/58 96 Room Air 06/09/16 15:45 118 18 63/49 94 Room Air 06/09/16 14:56 37.3 105 22 92/51 95 Room Air 06/09/16 14:45 115 20 92/51 95 Room Air 06/09/16 14:31 107 17 69/43 94 06/09/16 14:16 118 21 116/73 91 06/09/16 14:00 118 22 111/88 95 Room Air 06/09/16 13:58 150 06/09/16 13:55 111 23 96/46 94 Room Air 06/09/16 13:48 93 Room Air 06/09/16 13:45 114 21 95/39 95 Room Air 06/09/16 13:41 132 28 64/46 96 Room Air 06/09/16 13:31 131 26 93/53 93 Room Air 06/09/16 13:26 123 23 79/51 93 Room Air 06/09/16 13:22 67/52 06/09/16 13:02 38.1 129 22 67/47 96 Room Air Physical Exam Constitutional: Vital signs reviewed. 79/51 blood pressure. Eyes: Pupils are equal round reactive to light. Conjunctiva are noninjected. ENT: Pharynx is clear without erythema or exudate. Mucous membranes are moist. Neck supple without meningeal signs. Respiratory: Clear to auscultation bilaterally. Breath sounds are equal bilaterally. Cardiovascular: Tachycardic heart rate of 146 and regular rhythm. No rubs or gallops. GI: Soft, nondistended and nontender. Bowel sounds are present. Nephrostomy stoma in left flank without tenderness, drainage, or erythema. Musculoskeletal: No peripheral edema. No lower extremity tenderness. Integumentary: Pale. No cyanosis. . Neurological: The patient is awake and alert. No focal deficits. Psychiatric: Normal affect. Medical Decision & Procedures ER Provider Diagnostic Interpretation: X-ray results as stated below per interpretation by me and the radiologist: Chest x-ray: No acute pneumonia or effusion. Film is rotated and semi-upright. Laboratory Results 06/09/16 13:15 Red Blood Count 4.08, Mean Corpuscular Volume 84.3, Mean Corpuscular Hemoglobin 28.2, Mean Corpuscular Hemoglobin Concent 33.4, Mean Platelet Volume 8.7, Neutrophils (%) (Auto) 91.6, Lymphocytes (%) (Auto) 4.2, Monocytes (%) (Auto) 3.7, Eosinophils (%) (Auto) 0.0, Basophils (%) (Auto) 0.1, Neutrophils # (Auto) 12.97, Lymphocytes # (Auto) 0.59, Monocytes # (Auto) 0.52, Eosinophils # (Auto) 0.00, Basophils # (Auto) 0.01 06/09/16 13:15 Test 06/09/16 13:15 06/09/16 13:26 06/09/16 13:48 06/09/16 14:44 White Blood Count 14.14 K/uL (4.8-10.8) Red Blood Count 4.08 M/uL (4.7-6.1) Hemoglobin 11.5 g/dL (14.0-18.0) Hematocrit 34.4 % (42-52) Mean Corpuscular Volume 84.3 fL (80-100) Mean Corpuscular Hemoglobin 28.2 pg (25-34) Mean Corpuscular Hemoglobin Concent 33.4 g/dl (32-36) Platelet Count 296 K/uL (130-400) Mean Platelet Volume 8.7 fL (7.4-10.4) Neutrophils (%) (Auto) 91.6 % Lymphocytes (%) (Auto) 4.2 % Monocytes (%) (Auto) 3.7 % Eosinophils (%) (Auto) 0.0 % Basophils (%) (Auto) 0.1 % Neutrophils # (Auto) 12.97 K/uL (1.4-6.5) Lymphocytes # (Auto) 0.59 K/uL (1.2-3.4) Monocytes # (Auto) 0.52 K/uL (0.11-0.59) Eosinophils # (Auto) 0.00 K/uL (0-0.5) Basophils # (Auto) 0.01 K/uL (0-0.2) RDW Standard Deviation 55.5 fL (36.4-46.3) RDW Coefficient of Variation 17.9 % (11.5-14.5) Immature Granulocyte % (Auto) 0.4 % Immature Granulocyte # (Auto) 0.05 K/uL (0.00-0.02) Nucleated RBC Absolute Count (auto) 0.02 K/uL (0-0) Nucleated Red Blood Cells % 0.1 % Prothrombin Time 12.2 SECONDS (9.0-12.0) Prothromb Time International Ratio 1.1 (0.9-1.1) Activated Partial Thromboplast Time 30.7 SECONDS (21.0-31.0) Partial Thromboplastin Ratio 1.2 Est Creatinine Clear Calc Drug Dose 21.0 ml/min Estimated GFR () 18.9 Estimated GFR (Non- 16.3 BUN/Creatinine Ratio 14.7 (10-20) Calcium Level 9.2 mg/dl (8.5-10.1) Total Bilirubin 1.0 mg/dl (0.2-1) Aspartate Amino Transf (AST/SGOT) 15 U/L (15-37) Alanine Aminotransferase (ALT/SGPT) 29 U/L (12-78) Alkaline Phosphatase 57 U/L (45-117) Troponin I 0.033 ng/ml (0-0.045) Total Protein 7.8 gm/dl (6.4-8.2) Albumin 3.1 gm/dl (3.4-5.0) Globulin 4.7 gm/dl (2.5-4.0) Albumin/Globulin Ratio 0.7 (0.9-2) Digoxin Level 0.4 ng/ml (0.8-2.0) Bedside Lactic Acid Venous 2.34 mmol/L (0.90-1.70) Bedside Hemoglobin 11.9 g/dl (14.0-18.0) Bedside Hematocrit 35 % (42-52) Bedside Sodium 136 mEq/L (135-144) Bedside Potassium 4.9 mEq/L (3.3-5.0) Bedside Chloride 102 mEq/L (101-112) Bedside Total CO2 21 mEq/l (24-31) Anion Gap 19.0 mmol/L (16-25) Bedside Blood Urea Nitrogen 54 mg/dl (7-18) Bedside Creatinine 3.5 mg/dl (0.6-1.3) Bedside Glucose (other) 130 mg/dl (70-99) Bedside Ionized Calcium ([place]) 1.10 mmol/l (1.12-1.32) Urine Color YELLOW Urine Appearance TURBID (CLEAR) Urine pH 6.5 (4.5-7.5) Urine Specific [place] 1.010 (1.000-1.030) Urine Protein 3+ (NEG) Urine Glucose (UA) NEG (NEG) Urine Ketones NEG (NEG) Urine Occult Blood 3+ (NEG) Urine Nitrite POS (NEG) Urine Bilirubin NEG (NEG) Urine Urobilinogen NEG (NEG) Urine Leukocyte Esterase LARGE (NEG) Urine WBC (Auto) >30 /hpf (0-5) Urine RBC (Auto) >30 /hpf (0-4) Urine Hyaline Casts (Auto) 10-30 /lpf (0-5) Urine Epithelial Cells (Auto) >30 /lpf (0-5) Urine Bacteria (Auto) NEG (NEG) Urine Pathogenic Casts /lpf (0) Laboratory results as reviewed by me. Medications Administered Medications (Trade) Dose Ordered Sig/Richard Route Start Time Stop Time Status Last Admin Dose Admin Sodium Chloride (Nss 1000ml) 1,000 ml @ 999 mls/hr Q1H1M STAT IV 06/09/16 13:28 06/09/16 14:28 DC 06/09/16 13:34 999 MLS/HR Amiodarone HCL/ Dextrose 150 mg 150 mg NOW STAT IV 06/09/16 13:28 06/09/16 13:31 DC 06/09/16 13:40 150 MG Imipenem/ Cilastatin Sodium/ Dextrose (Primaxin Iv/D5 100ml) 110 ml @ 100 mls/hr NOW STAT IV 06/09/16 13:30 06/09/16 14:35 DC 06/09/16 13:59 100 MLS/HR Acetaminophen (Tylenol Tab) 650 mg STK-MED ONCE .ROUTE 06/09/16 14:02 06/09/16 14:03 DC 06/09/16 14:00 650 MG Vancomycin HCl (Consult) 1 ea UD PRN N/A 06/09/16 15:45 07/09/16 15:44 06/09/16 16:20 1 EA ECG Indication: vomiting Rate (beats per minute): 133 Rhythm: atrial fibrillation (with RVR) Findings: other (nonspecific ST T-wave changes, QRS of 74 ms) Change: Second ECG: Atrial fibrillation with RVR with a rate of 109 bpm, T-wave inversions in V3-V6, which were present to a lesser degree on May 02 2016. ED Course 1321: The patient was evaluated in room B1. A complete history and physical exam was performed. 1328: Ordered Nexterone / D5w 150 mg IV, NSS 1000 ml @ 999 mls/hr IV. 1330: Ordered Imipenem/Cilastatin Sodium 500 mg/Dextrose 110 ml @ 100 mls/hr IV. 1337: I reevaluated the patient and his pressure is 93/50. His lactic acid is 2.3. His second line is going in. 1347: I reevaluated the patient and is heart rate is 95/39. His heart rate is 120. A second liter of fluids is going in. Amiodarone infusion is continuing. Dr. Miguel from ICU is evaluating the patient. 1353: The patient's creatine is 3.7, which is up from baseline. 1354: I reevaluated the patient and his heart rate is 110, and his blood pressure is is 96/46. Amiodarone is finished, Primaxin is infusing. The patient verbally expressed understanding and agreement of the treatment plan. The patient will be evaluated for further treatment. 1401: Ordered Tylenol Tab 650 mg PO. 1415: I discussed the patient with Dr. Elias - [facility] - he will evaluate the patient for further treatment. 1423: I reevaluated the patient and his pressure is now 116/73 with a heart rate of 100. 1455: I reevaluated the patient and the resident is in the room with him and consulted with Dr. Morgan - [facility] [place] - for rate control. 1605: I reevaluated the patient and he is hypotensive with a systolic of 78. The sales administration specialist is with him now. Dr. Elias slowed down fluids earlier because the patient had a poor ejection fraction on last echo. Dr. Morgan is trying to arrange for an echocardiogram. Medical Decision This is a 66-year-old male who presents with fever, tachycardia and hypotension. Differential diagnosis includes sepsis, septic shock, dysrhythmia , A. fib, electrolyte abnormality, metabolic derangement, pneumonia, UTI. I did perform a limited focused review of portions of the patient's old chart on the electronic medical record. The patient had a nephrostomy removal on May 29. I did evaluate the patient as noted above. IV access was established. The patient was placed on a continuous court recording monitor. He is tachycardic. He does have atrial fibrillation with RVR. I did order and personally review the patient's 12-lead EKG and chest x-ray as described above. The patient is hypotensive and tachycardic. It is unclear if the hypertension is secondary to the tachycardia or the tachycardia as a consequence of his hypotension from sepsis. I did immediately start him on normal saline. He was given a 1 L bolus and a second liter was immediately started through a second IV. Blood pressure did improve. He was also given amiodarone 150 mg IV. Blood cultures were obtained. I did treat him empirically with Primaxin IV. I did order and review the patient's blood work as noted in the electronic medical record. His creatinine is significantly elevated. His lactic acid is elevated as well. His white blood cell count is elevated. A urinalysis was ordered. I did reassess the patient multiple times. I did discuss the case with the sales administration specialist and the hospitalist for admission. His blood pressure did improve significantly and his heart rate decreased significantly as well.The patient was admitted to the ICU. Consults Time Called: 1405 Consulting Physician: Dr. Curt SHORE hospitalist Returned Call: 1415 I discussed the patient with Dr. Curt SHORE hospitalist - he will evaluate the patient for further treatment. Impression Primary Impression: Septic shock Additional Impressions: Atrial fibrillation with RVR Acute on chronic kidney failure Critical Care I have personally spent 45 minutes of critical care time in the direct management of this patient. This includes bedside care, interpretation of diagnostic studies, and testing, discussion with consultants, patient, and family members, and other required patient management activities. This 45 minutes is in excess of all separately billable procedures. Scribe Attestation The scribe's documentation has been prepared under my direct and personally reviewed by me in its entirety. I confirm that the note above accurately reflects all work, treatment, procedures, and medical decision making performed by me. Departure Information Dispostion Being Evaluated By Hospitalist Sina Burr M.D. (PCP) Patient Instructions My [facility] Problem Qualifiers
[2016-06-09] MEDS ORDERED: IMIPENEM/CILASTATIN CONSULT ACTIVE PRN (18:00)
--- NOTE | 2016-06-09 18:09 | Critical Care Consultation ---
Critical Care Consultation Date of Consultation: Jun 09, 2016. Attending Physician: Leopoldo Elias M.D. Reason for Consultation: ICU Management History of Present Illness Mr Castro is a 66 yo M with history of prostate Ca, who had bilateral nephrostomies placed last December for kidney stones causing hydronephrosis. The external portion of the nephrostomies were removed on Sunday (4 days ago). He reports since Sunday, though he was still taking two doses of Cipro, he was feeling cold and had chills. He progressively worsened, and called his Urologist Dr Almeida, who recommended they come to the ED. He also has a history of atrial fibrillation and is anticoagulated with Xarelto. He last took a dose of this last night. He has also been feeling short of breath, but denies any chest pain. He reports occasional pain with passing urine. Upon arrival to the ED, he was hypotensive, with a BP of 67/47. Sepsis protocol was started, he was provided with IV fluid resuscitation, broad spectrum abx, and cultures were obtained. He did have a WBC of 14. He had a lancaster placed and was producing urine. His creatinine was 3.4. He was also reviewed by Dr Morgan from Cardiology. An echocardiogram was performed. Upon arrival in the ICU, his BP had improved to 108/64. He ate dinner and had some coffee. He reports intermittent chills. He was started on Vancomycin and Imipenem. His most recent BP is 138/58. Past Medical/Surgical History PMHx: Atrial fibrillation Prostate Cancer PSHx: Prostate biopsy Family History Diabetes mellitus Heart disease Hypertension Prostate cancer Social History Smoking Status: Never Smoker Drug Use: none Marital Status: Housing Status: lives with significant other Occupation Status: disabled Allergies Coded Allergies: No Known Allergies (Unverified , 06/09/16) Home Medications Scheduled Aspirin (Aspirin Ec), 81 MG PO DAILY Atorvastatin (Lipitor), 1 TAB PO QAM Degarelix Acetate (Firmagon), 1 DOSE INJ MONTHLY Digoxin (Digoxin), 0.25 MG PO QAM Ergocalciferol (Vitamin D 43447 Unit), 1 CAP PO WK Finasteride (Proscar), 5 MG PO QAM Furosemide (Lasix), 40 MG PO BID Metoprolol Succinate (Toprol Xl), 50 MG PO QAM Paroxetine (Paxil), 10 MG PO QAM Potassium Ext Rel (Klor-Con), 20 MEQ PO QAM Quinapril Hcl (Quinapril Hcl), 1 TAB PO QAM Rivaroxaban (Xarelto), 15 MG PO QPM Tamsulosin Hcl (Flomax), 1 CAP PO HS Scheduled PRN Ranitidine (Zantac), 150 MG PO DAILY PRN for Dyspepsia Current Inpatient Medications Current Inpatient Medications Medications (Trade) Dose Ordered Sig/Richard Route Start Time Stop Time Status Last Admin Dose Admin Acetaminophen (Tylenol Tab) 650 mg Q4H PRN PO 06/09/16 15:15 07/09/16 15:14 Al Hydrox/Mg Hydrox/Simethicone (Maalox Max Susp) 15 ml Q4H PRN PO 06/09/16 15:15 07/09/16 15:14 Magnesium Hydroxide (Milk Of Magnesia Susp) 30 ml Q12H PRN PO 06/09/16 15:15 07/09/16 15:14 Ondansetron HCl (Zofran Inj) 4 mg Q6H PRN IV 06/09/16 15:15 07/09/16 15:14 Morphine Sulfate (MoRPHine SULFATE INJ) 2 mg Q30M PRN IV 06/09/16 15:15 06/23/16 15:14 Polyethylene (Miralax Powder Packet) 17 gm DAILY PRN PO 06/09/16 15:15 07/09/16 15:14 Aspirin (Ecotrin Tab) 81 mg DAILY PO 06/10/16 09:00 07/10/16 08:59 Atorvastatin Calcium (Lipitor Tab) 20 mg QAM PO 06/10/16 09:00 07/10/16 08:59 Digoxin (Lanoxin Tab) 0.25 mg DAILY@1600 PO 06/10/16 16:00 07/10/16 15:59 Ergocalciferol (Vitamin D Cap) 50,000 interunit Q7D PO 06/14/16 09:00 07/14/16 08:59 Finasteride (Proscar Tab) 5 mg QAM PO 06/10/16 09:00 07/10/16 08:59 Metoprolol Succinate (Toprol Xl Tab) 50 mg QAM PO 06/10/16 09:00 07/10/16 08:59 Paroxetine HCl (pAXil TAB) 10 mg QAM PO 06/10/16 09:00 07/10/16 08:59 Potassium Chloride (Klor-Con Tab) 20 meq QAM PO 06/10/16 09:00 07/10/16 08:59 Ranitidine HCl (zANTac TAB) 150 mg DAILY PRN PO 06/09/16 15:15 07/09/16 15:14 Rivaroxaban (Xarelto Tab) 15 mg QDD PO 06/09/16 21:00 07/09/16 20:59 Tamsulosin HCl 0.4 mg 0.4 mg HS PO 06/09/16 21:00 07/09/16 20:59 Vancomycin HCl 1700 mg/Sodium Chloride 534 ml @ 200 mls/hr TODAY@1630 IV 06/09/16 16:30 06/09/16 23:59 06/09/16 16:20 200 MLS/HR Sodium Chloride (Nss 1000ml) 1,000 ml @ 200 mls/hr Q5H IV 06/09/16 15:30 07/09/16 15:29 Vancomycin HCl 1 ea 1 ea UD PRN N/A 06/09/16 15:45 07/09/16 15:44 06/09/16 16:20 1 EA Amiodarone HCL/ Dextrose 200 ml @ 33.3 mls/hr Q6H1M IV 06/09/16 17:15 06/09/16 23:15 Amiodarone HCL/ Dextrose (Nexterone / D5w) 200 ml @ 16.7 mls/hr [id number] IV 06/09/16 23:15 07/09/16 23:14 Imipenem/ Cilastatin Sodium (Consult) 1 ea UD PRN N/A 06/09/16 18:00 07/09/16 17:59 Review of Systems Constitutional: + chills, + weakness, No weight loss ENT: No hearing loss Respiratory: + dyspnea at rest, + dyspnea on exertion, + shortness of breath, No cough, No sputum, No wheezing Cardiovascular: No chest pain, No orthopnea Abdomen: + diarrhea (today), No GI bleeding, No nausea, No pain Musculoskeletal: No calf pain, No joint pain, No muscle pain, No swelling Genitourinary - Male: + dysuria, + urinary frequency, + urinary urgency, No hematuria, No urinary hesitancy, No urinary incontinence, No urinary retention Neurologic: No memory loss, No paralysis, No weakness Psychiatric: No anhedonism, No depression symptoms Endocrine: No fatigue Hematologic / Lymphatic: No abnormal bleeding/bruising, No clotting problems Integumentary: No itch, No rash Physical Exam Date Time Temp Pulse Resp B/P Pulse Ox O2 Delivery O2 Flow Rate FiO2 06/09/16 16:31 110 18 72/51 95 Nasal Cannula 2.5 06/09/16 16:24 92 Nasal Cannula 2.5 06/09/16 16:00 37.1 112 18 78/58 96 Room Air 06/09/16 15:45 118 18 63/49 94 Room Air 06/09/16 14:56 37.3 105 22 92/51 95 Room Air 06/09/16 14:45 115 20 92/51 95 Room Air 06/09/16 14:31 107 17 69/43 94 06/09/16 14:16 118 21 116/73 91 06/09/16 14:00 118 22 111/88 95 Room Air 06/09/16 13:58 150 06/09/16 13:55 111 23 96/46 94 Room Air 06/09/16 13:48 93 Room Air 06/09/16 13:45 114 21 95/39 95 Room Air 06/09/16 13:41 132 28 64/46 96 Room Air 06/09/16 13:31 131 26 93/53 93 Room Air 06/09/16 13:26 123 23 79/51 93 Room Air 06/09/16 13:22 67/52 06/09/16 13:02 38.1 129 22 67/47 96 Room Air GENERAL: Awake, alert, in no acute distress HENT: Normocephalic, atraumatic. Oropharynx unremarkable. EYES: Normal conjunctiva. Sclera non-icteric. NECK: Supple. No nuchal rigidity. FROM. No JVD. RESPIRATORY: Clear to auscultation. CARDIAC: Regular rate, normal rhythm. Extremities warm and well perfused. Pulses equal. ABDOMEN: Soft, non-distended. No tenderness to palpation. No rebound or guarding. No masses. No CVA tenderness. LOWER EXTREMITIES: Calves are equal size bilaterally and non-tender. No edema. No discoloration. NEURO: Normal sensorium. No sensory or motor deficits noted. SKIN: No rash or jaundice noted. Laboratory Results Last 24 Hours Test 06/09/16 13:15 06/09/16 13:26 06/09/16 13:48 06/09/16 14:44 White Blood Count 14.14 K/uL Red Blood Count 4.08 M/uL Hemoglobin 11.5 g/dL Hematocrit 34.4 % Mean Corpuscular Volume 84.3 fL Mean Corpuscular Hemoglobin 28.2 pg Mean Corpuscular Hemoglobin Concent 33.4 g/dl Platelet Count 296 K/uL Mean Platelet Volume 8.7 fL Neutrophils (%) (Auto) 91.6 % Lymphocytes (%) (Auto) 4.2 % Monocytes (%) (Auto) 3.7 % Eosinophils (%) (Auto) 0.0 % Basophils (%) (Auto) 0.1 % Neutrophils # (Auto) 12.97 K/uL Lymphocytes # (Auto) 0.59 K/uL Monocytes # (Auto) 0.52 K/uL Eosinophils # (Auto) 0.00 K/uL Basophils # (Auto) 0.01 K/uL RDW Standard Deviation 55.5 fL RDW Coefficient of Variation 17.9 % Immature Granulocyte % (Auto) 0.4 % Immature Granulocyte # (Auto) 0.05 K/uL Nucleated RBC Absolute Count (auto) 0.02 K/uL Nucleated Red Blood Cells % 0.1 % Prothrombin Time 12.2 SECONDS Prothromb Time International Ratio 1.1 Activated Partial Thromboplast Time 30.7 SECONDS Partial Thromboplastin Ratio 1.2 Sodium Level 134 mmol/L Potassium Level 4.9 mmol/L Chloride Level 100 mmol/L Carbon Dioxide Level 23 mmol/L Anion Gap 11.0 mmol/L 19.0 mmol/L Blood Urea Nitrogen 55 mg/dl Creatinine 3.70 mg/dl Est Creatinine Clear Calc Drug Dose 21.0 ml/min Estimated GFR () 18.9 Estimated GFR (Non- 16.3 BUN/Creatinine Ratio 14.7 Random Glucose 152 mg/dl Calcium Level 9.2 mg/dl Total Bilirubin 1.0 mg/dl Aspartate Amino Transf (AST/SGOT) 15 U/L Alanine Aminotransferase (ALT/SGPT) 29 U/L Alkaline Phosphatase 57 U/L Troponin I 0.033 ng/ml Total Protein 7.8 gm/dl Albumin 3.1 gm/dl Globulin 4.7 gm/dl Albumin/Globulin Ratio 0.7 Digoxin Level 0.4 ng/ml Bedside Lactic Acid Venous 2.34 mmol/L Bedside Hemoglobin 11.9 g/dl Bedside Hematocrit 35 % Bedside Sodium 136 mEq/L Bedside Potassium 4.9 mEq/L Bedside Chloride 102 mEq/L Bedside Total CO2 21 mEq/l Bedside Blood Urea Nitrogen 54 mg/dl Bedside Creatinine 3.5 mg/dl Bedside Glucose (other) 130 mg/dl Bedside Ionized Calcium ([place]) 1.10 mmol/l Urine Color YELLOW Urine Appearance TURBID Urine pH 6.5 Urine Specific [place] 1.010 Urine Protein 3+ Urine Glucose (UA) NEG Urine Ketones NEG Urine Occult Blood 3+ Urine Nitrite POS Urine Bilirubin NEG Urine Urobilinogen NEG Urine Leukocyte Esterase LARGE Urine WBC (Auto) >30 /hpf Urine RBC (Auto) >30 /hpf Urine Hyaline Casts (Auto) 10-30 /lpf Urine Epithelial Cells (Auto) >30 /lpf Urine Bacteria (Auto) NEG Urine Pathogenic Casts /lpf Assessment & Plan [place] SCORE: 12 SOFA SCORE: 4 points on 06/09 NEURO: GCS 15 No pain currently RESPIRATORY: 95% on 2L O2 by NC CXR 06/09/16: IMPRESSION: Moderate stable cardiomegaly. The lungs are clear. CVS: Most recent BP 138/58. CV drips: IV amiodarone. MAP currently 90. Will consider started pressors if it drops, goal > 65 Rhythm: Atrial fibrillation. Rate controlled. Xarelto for anticoagulation. EKG: A fib, 133bpm. QTc 413. ECHO completed today: * Normal biventricular systolic function. * Normal chamber dimensions. * No significant valvular abnormalities. * EF 60-65% FLUIDS/RENAL: Received 3L NSS fluid bolus prior to arriving in ICU Maintenance IV fluids at 200mL/hour [place]: Present GI/NUTRITION: Tolerated regular diet Prophylaxis: None BM: Not as of yet ENDOCRINE: Glucose 152 HEME: Hb 11.5, Hct 35 DVT Prophylaxis: Xarelto. Aspirin ID: Antibiotics: Imipenem day 1 Vancomycin day 1 Cultures: MRSA negative Blood pending from 06/09 Urine pending from 06/09 Previous urine culture: RECD: 05/16/[address]: Braxton Almeida MD, Urology SOURCE: UR, CC ENTR: 05/16/16 [facility] DR: Sina Klein M.D. [facility]: ORDERED: CULTURE URCLEAN Procedure Result Verified Site URINE CULTURE Final 05/19/16 Organism 1 STAPHYLOCOCCUS AUREUS COLONY COUNT >100,000 CFU/ml SENS SENSITIVITY TO FOLLOW 1. STAPHYLOCOCCUS AUREUS Target Route Dose RX AB Cost M.I.C. IQ ------ ----- ------ -- ------ -------- - ------ TRIMET/SULFA S <=0.5/ 9.5 * OXACILLIN S 1 VANCOMYCIN S 1 TETRACYCLINE S <=4 DAPTOMYCIN S 1 NITROFURANTOIN S <=32 S = SENSITIVE I = INTERMEDIATE R = RESISTANT Resident Physician Supervision Note: Dr. Montiel was resident physician during care of patient. I separately evaluated patient and did history and exam. I discussed the case with the resident and generally agree with the findings and plan. Concern for left hydronephrosis, this was not seen on US. responded well to IVF , and now BP 138/58. Continue to monitor in ICU. Patient critically ill due to sepsis, likely urinary source. I have personally spent 45 minutes of critical care time in the direct management of this patient. This is a life/limb threatening event. This includes time spent evaluating patient, direct bedside care, chart review, placing orders, interpretation of diagnostic studies, discussion with consultants, patient, and family members, as well as other required patient management activities. This time is exclusive of all separately billable procedures, and teaching time and separate from and in addition to any other critical care service time. Documented By: Siddhartha Miguel DO Resident Tracking Resident Involvement: Resident Care Provided Care Provided: Adult Hospital Medicine (ICU)
--- NOTE | 2016-06-09 18:17 | ECHOCARDIOGRAM REPORT ---
*NOTICE TO RECEIVING REPUBL[employer] AGENCY This information is strictly Confidential and protected under [place] law. [place] law prohibits you from making any further disclosure of this information unless further disclosure is expressly permitted by the written consent of the person to whom it pertains or is authorized by law. A general authorization for the release of medical or other information is not sufficient for this purpose. Hospital accepts no responsibility if the information is made available to any other person, INCLUDING THE PATIENT. Interpretation Summary * Name: TEMO GUPTA Study Date: 06/09/2016 04:13 PM BP: 72/51 mmHg * Patient Location: [facility] HR: 107 * : 1950 (M/d/yyyy) Gender: Male Height: 67 in * Age: 66 yrs Ethnicity: [place] Weight: 187 lb * Ordering Physician: Samantha Benítez. * Referring Physician: SHARIF DOMINGUEZ MD * Performed By: Sofi Melendez RCS * * Reason For Study: A-FIB * BSA: 2.0 m2 * Normal biventricular systolic function. * Normal chamber dimensions. * No significant valvular abnormalities. * The study was technically difficult. Procedure Details * A complete two-dimensional transthoracic echocardiogram was performed (2D, M-mode, Doppler and color flow Doppler). Left Ventricle * The left ventricle is normal in size. * There is normal left ventricular wall thickness. * Left ventricular systolic function is normal. * Ejection Fraction = 60-65%. * The left ventricular wall motion is normal. Right Ventricle * The right ventricle is normal in size and function. Atria * The left atrial size is normal. * Right atrial size is normal. Mitral Valve * The mitral valve is normal. * There is no mitral valve stenosis. * There is trace mitral regurgitation. Tricuspid Valve * The tricuspid valve is not well visualized, but is grossly normal. * There is no tricuspid stenosis. * Significant tricuspid regurgitation is absent. Aortic Valve * The aortic valve is not well visualized. * The aortic valve appears to be trileaflet and to open normally. * Aortic stenosis is absent. * No aortic regurgitation is present. Pulmonic Valve * The pulmonic valve is not well visualized. * The pulmonary valve is inadequately visualized, but the Doppler data is adequate for interpretation. * Pulmonic stenosis is absent. * There is no significant pulmonary regurgitation. Great Vessels * The aortic root is normal size. Pericardium/Pleural * There is no pericardial effusion. Great Vessels * Normal inferior vena cava diameter and respiratory variation suggests normal central venous pressure. MMode 2D Measurements and Calculations IVSd 1.1 cm IVSs 1.7 cm LVIDd 3.9 cm LVIDs 2.9 cm LVPWd 1.1 cm LVPWs 1.4 cm IVS/LVPW 1.0 FS 26.7 % EDV(Teich) 67.3 ml ESV(Teich) 31.7 ml EF(Teich) 52.8 % EDV(cubed) 60.9 ml ESV(cubed) 23.9 ml EF(cubed) 60.7 % % IVS thick 44.7 % % LVPW thick 30.9 % LV mass(C)d 144.8 grams LV mass(C)dI 73.7 grams/m\S\2 LV mass(C)s 156.7 grams LV mass(C)sI 79.8 grams/m\S\2 SV(Teich) 35.5 ml SI(Teich) 18.1 ml/m\S\2 SV(cubed) 36.9 ml SI(cubed) 18.8 ml/m\S\2 Ao root diam 3.3 cm Ao root area 8.6 cm\S\2 LA dimension 3.6 cm LA/Ao 1.1 LVOT diam 1.8 cm LVOT area 2.5 cm\S\2 Doppler Measurements and Calculations MV E max shen 112.2 cm/sec MV P1/2t max shen 124.8 cm/sec MV P1/2t 55.1 msec MVA(P1/2t) 4.0 cm\S\2 MV dec slope 663.5 cm/sec\S\2 MV dec time 0.19 sec Ao V2 max 95.3 cm/sec Ao max PG 3.6 mmHg Ao max PG (full) -0.64 mmHg ANIHSA(V,A) 2.7 cm\S\2 ANISHA(V,D) 2.7 cm\S\2 LV V1 max PG 4.3 mmHg LV V1 max 103.4 cm/sec MR max shen 415.5 cm/sec MR max PG 69.1 mmHg PA V2 max 96.5 cm/sec PA max PG 3.7 mmHg
--- NOTE | 2016-06-09 19:09 | Procedure Note ---
Procedure Note Date of Service Jun 09, 2016. Procedure Note Critical Care Medicine Point of Care Bedside Ultrasound Procedure: Limited Bedside Renal Ultrasound Procedure Date: 06/09/16 Indication: LINDA, hx ureteral obstruction Attending: Pérez Miguel DO Resident/Physician Optical Brightener Maker Helper: Ronaldo Montiel Organs Examined: kidneys, ureter, bladder. Right Kidney Kidney present: Y Both Poles visualized: Y Hydronephrosis: Mild Hepatorenal space fluid visualized: N Concern for Mass/Cyst: N Left Kidney Kidney present: Y Both Poles visualized: Y Hydronephrosis: inconclusive Splenorenal space fluid visualized: N Concern for Mass/Cyst: N Bladder Marrero present: Y Fluid in Bladder present: N Fluid in rectovesicle recesss: N Concern for Mass: N Ureteral Jets: inconclusive Impression: Inconclusive limited bedside ultrasound for Left hydronephrosis Images obtained are saved for permanent record
[2016-06-09 19:21] LABS: BUN/CREATININE RATIO 16.4 (10-20); CALCIUM 7.7 mg/dl (8.5-10.1); CREATININE 3.2 mg/dl (0.60-1.40); POTASSIUM 4.7 mmol/L (3.5-5.1)
--- NOTE | 2016-06-09 19:25 | DIAGNOSTIC IMAGING REPORT ---
ULTRASOUND KIDNEYS AND BLADDER CLINICAL HISTORY: Sepsis. COMPARISON STUDY: Renal ultrasound dated 04/20/2016. TECHNIQUE: Real-time, grayscale, and color flow sonography of the kidneys and bladder is performed. Images are reviewed in the transverse and longitudinal planes. FINDINGS: Kidneys: The kidneys demonstrate mild cortical atrophy. The right kidney measures 13.4 x 6.7 x 6.6 cm and the left kidney measures 10.5 x 5.3 x 5.4 cm. There is no hydronephrosis. No shadowing renal calculi are identified. There is no sonographic evidence of contour deforming renal mass lesion. No perinephric fluid is identified. Bladder: The bladder is decompressed around a Marrero catheter and could not be evaluated. IMPRESSION: 1. The kidneys demonstrate mild cortical atrophy and are without hydronephrosis. 2. The bladder was decompressed around a Marrero catheter and could not be evaluated. Electronically signed by: Robert Kirk M.D. 06/09/2016 7:23 PM Dictated Date/Time: 06/09/2016 7:22 PM
[2016-06-09] MEDS: IMIPENEM-CILASTATIN 200 MG in DEXTROSE 5% 100ML 100 ML IV SCH (19:37)
[2016-06-09] MEDS ORDERED: IMIPENEM/CILASTATIN IV 200 MG in DEXTROSE 5% 100ML 100 ML IV SCH (20:00)
[2016-06-09] MEDS: TAMSULOSIN HCL 0.4 MG CAP PO SCH (20:39)
[2016-06-09] MEDS ORDERED: RIVAROXABAN TAB 15 MG TAB PO SCH (21:00)
[2016-06-09] MEDS: ACETAMINOPHEN 325 MG TAB PO PRN (21:54)
[2016-06-09] MEDS: SODIUM CHLORIDE 0.9% 1000ML 1,000 ML IV SCH (22:09)
[2016-06-10] VITALS (34 sets, daily range): BP systolic 77–139; BP diastolic 49–91; PULSE 91–142; TEMP 37.1–39.2; O2SAT 86–100
[2016-06-10] MEDS: AMIODARONE / D5W 200 ML IV SCH ×2 (01:32→12:00)
[2016-06-10] MEDS: IMIPENEM-CILASTATIN 200 MG in DEXTROSE 5% 100ML 100 ML IV SCH ×2 (02:23→07:52)
[2016-06-10] MEDS: ACETAMINOPHEN 325 MG TAB PO PRN (04:10)
[2016-06-10] MEDS: SODIUM CHLORIDE 0.9% 1000ML 1,000 ML IV SCH ×2 (06:10→07:52)
[2016-06-10 06:20] LABS: BUN/CREATININE RATIO 16.8 (10-20); CALCIUM 7.3 mg/dl (8.5-10.1); CREATININE 2.6 mg/dl (0.60-1.40); POTASSIUM 3.8 mmol/L (3.5-5.1)
[2016-06-10 06:36] LABS: MEAN CELL VOLUME 86.1 fL (80-100); MEAN CORPUSCULAR HEMOGLOBIN 28.5 pg (25-34); MEAN CORPUSCULAR HGB CONC 33.1 g/dl (32-36); MEAN PLATELET VOLUME 8.5 fL (7.4-10.4); PLATELET COUNT 180 K/uL (130-400); RED BLOOD COUNT 3.02 M/uL (4.7-6.1); WHITE BLOOD COUNT 7.19 K/uL (4.8-10.8)
[2016-06-10 06:37] LABS: COMPLETE YES; IG% 0.3 %; LYMPH % 2.9 %; LYMPH ABS # 0.21 K/uL (1.2-3.4); MONO % 2.8 %
[2016-06-10] MEDS: ASPIRIN 81 MG ECTAB PO SCH (07:52)
[2016-06-10] MEDS: PAROXETINE 20 MG TAB PO SCH (07:53)
[2016-06-10] MEDS: FINASTERIDE 5 MG TAB PO SCH (07:53)
[2016-06-10] MEDS: POTASSIUM CHLORIDE 20 MEQ TABCR PO SCH (07:53)
[2016-06-10] MEDS: ATORVASTATIN 20 MG TAB PO SCH (07:53)
[2016-06-10] MEDS ORDERED: DIGOXIN 0.125 MG TAB PO ONE (08:00)
--- NOTE | 2016-06-10 08:03 | Cardiology Follow-Up ---
Subjective Date of Service: Jun 10, 2016. Pt evaluation today including: conversation w/ patient, physical exam, lab review, review of studies, review of inpatient medication list History of Present Illness This is a very pleasant 66 year old gentleman who has had his cardiac care in the [facility]. He presented here with hypotension. He is awake and alert and can provide some history, although a lot of the history is from his . He has been having difficulty with urologic issues including urine ostomy tubes and stent placement recently. From the cardiovascular standpoint he has evidently a long history of atrial fibrillation, a number of years ago he evidently had left ventricular dysfunction (although the family is not too familiar with it) and was wearing a LifeVest. Evidently his cardiac function improved and the LifeVest was discontinued and an ICD was not recommended. He is not very aware of his atrial arrhythmia, apparently it was identified when he went in for routine test. He does not seem to have palpitations or other symptoms related to it. He was having a several week history of weakness and a 24-hour history of nausea , dizziness and dysuria. He has been feeling chills and feverish for several days as well, he has had diarrhea. He has not had chest discomfort. On arrival in the emergency room he was noted to have hypotension with a pressure of 67/47, and a rapid heart rate. He has been treated with beta- blockade and intravenous amiodarone for rate control. Prior to admission he was taking digoxin 0.25 mg daily (although his level was very low) as well as metoprolol succinate 50 mg daily and Xarelto 15 mg at bedtime which he took last 06/08/2016. He appeared to be septic, an echocardiogram done in the emergency room showed reasonably good left ventricular function and it appeared that his hypotension was not cardiac, probably sepsis. He was treated with antibiotics, intravenous amiodarone was continued since he was in atrial fibrillation with a rapid heart rate. Metoprolol was held due to hypotension. He has stabilized this morning with a good blood pressure, his heart rate remained somewhat elevated. He has no complaints sitting eating breakfast. Social History Smoking Status: Never Smoker History of Alcohol Use: No Review of Systems Respiratory: No cough, No dyspnea on exertion, No shortness of breath, No wheezing Cardiac: No PND, No chest pain, No edema, No orthopnea, No palpitations Objective Vital Signs Past 12 Hours Date Time Temp Pulse Resp B/P Pulse Ox O2 Delivery O2 Flow Rate FiO2 06/10/16 06:12 37.7 06/10/16 06:10 115 27 83/51 95 06/10/16 06:00 119 23 77/59 95 06/10/16 05:00 123 23 84/58 94 06/10/16 04:00 39.2 116 28 122/82 90 Nasal Cannula 2.0 06/10/16 04:00 Nasal Cannula 2.0 06/10/16 03:00 104 25 117/91 87 Nasal Cannula 2.0 06/10/16 02:00 104 22 101/63 95 Nasal Cannula 2.0 06/10/16 01:00 111 22 86/56 97 Nasal Cannula 2.0 06/10/16 00:00 38.1 22 82/57 Nasal Cannula 2.0 06/10/16 00:00 Nasal Cannula 2.0 06/09/16 23:00 126 23 89/55 96 Nasal Cannula 2.0 06/09/16 22:01 39.5 114 24 83/58 98 Nasal Cannula 2.0 06/09/16 20:00 37.4 122 25 114/83 95 Nasal Cannula 2.0 06/09/16 20:00 Nasal Cannula 2.0 Last Recorded Weight-Kilograms: 94.000 Intake & Output 8-Hour Column 06/09/16 06/10/16 06/10/16 16:00 00:00 08:00 Intake Total 2000 ml 2732 ml 2200 ml Output Total 1450 ml 1550 ml Balance 2000 ml 1282 ml 650 ml 24-Hour Column 06/10/16 08:00 Intake Total 6932 ml Output Total 3000 ml Balance 3932 ml Physical Exam Constitutional: General Apperance: heathly-appearing Level of Distress: moderate distress Lungs: Respiratory effort: no dyspnea, good air movement Auscultation: breath sounds normal, no wheezing Cardiovascular: Heart Auscultation: no murmurs, no rubs, no gallops, tachycardia, irregular rate rhythm Peripheral Pulses: Bruits: none appreciated Extremities: no edema Data Laboratory Results: Last 24 Hours Test 06/09/16 13:15 06/09/16 13:26 06/09/16 13:48 06/09/16 14:44 White Blood Count 14.14 K/uL Red Blood Count 4.08 M/uL Hemoglobin 11.5 g/dL Hematocrit 34.4 % Mean Corpuscular Volume 84.3 fL Mean Corpuscular Hemoglobin 28.2 pg Mean Corpuscular Hemoglobin Concent 33.4 g/dl Platelet Count 296 K/uL Mean Platelet Volume 8.7 fL Neutrophils (%) (Auto) 91.6 % Lymphocytes (%) (Auto) 4.2 % Monocytes (%) (Auto) 3.7 % Eosinophils (%) (Auto) 0.0 % Basophils (%) (Auto) 0.1 % Neutrophils # (Auto) 12.97 K/uL Lymphocytes # (Auto) 0.59 K/uL Monocytes # (Auto) 0.52 K/uL Eosinophils # (Auto) 0.00 K/uL Basophils # (Auto) 0.01 K/uL RDW Standard Deviation 55.5 fL RDW Coefficient of Variation 17.9 % Immature Granulocyte % (Auto) 0.4 % Immature Granulocyte # (Auto) 0.05 K/uL Nucleated RBC Absolute Count (auto) 0.02 K/uL Nucleated Red Blood Cells % 0.1 % Prothrombin Time 12.2 SECONDS Prothromb Time International Ratio 1.1 Activated Partial Thromboplast Time 30.7 SECONDS Partial Thromboplastin Ratio 1.2 Sodium Level 134 mmol/L Potassium Level 4.9 mmol/L Chloride Level 100 mmol/L Carbon Dioxide Level 23 mmol/L Anion Gap 11.0 mmol/L 19.0 mmol/L Blood Urea Nitrogen 55 mg/dl Creatinine 3.70 mg/dl Est Creatinine Clear Calc Drug Dose 21.0 ml/min Estimated GFR () 18.9 Estimated GFR (Non- 16.3 BUN/Creatinine Ratio 14.7 Random Glucose 152 mg/dl Calcium Level 9.2 mg/dl Total Bilirubin 1.0 mg/dl Aspartate Amino Transf (AST/SGOT) 15 U/L Alanine Aminotransferase (ALT/SGPT) 29 U/L Alkaline Phosphatase 57 U/L Troponin I 0.033 ng/ml Total Protein 7.8 gm/dl Albumin 3.1 gm/dl Globulin 4.7 gm/dl Albumin/Globulin Ratio 0.7 Digoxin Level 0.4 ng/ml Bedside Lactic Acid Venous 2.34 mmol/L Bedside Hemoglobin 11.9 g/dl Bedside Hematocrit 35 % Bedside Sodium 136 mEq/L Bedside Potassium 4.9 mEq/L Bedside Chloride 102 mEq/L Bedside Total CO2 21 mEq/l Bedside Blood Urea Nitrogen 54 mg/dl Bedside Creatinine 3.5 mg/dl Bedside Glucose (other) 130 mg/dl Bedside Ionized Calcium ([place]) 1.10 mmol/l Urine Color YELLOW Urine Appearance TURBID Urine pH 6.5 Urine Specific [place] 1.010 Urine Protein 3+ Urine Glucose (UA) NEG Urine Ketones NEG Urine Occult Blood 3+ Urine Nitrite POS Urine Bilirubin NEG Urine Urobilinogen NEG Urine Leukocyte Esterase LARGE Urine WBC (Auto) >30 /hpf Urine RBC (Auto) >30 /hpf Urine Hyaline Casts (Auto) 10-30 /lpf Urine Epithelial Cells (Auto) >30 /lpf Urine Bacteria (Auto) NEG Urine Pathogenic Casts /lpf Test 06/09/16 18:51 06/09/16 20:41 06/09/16 21:56 06/10/16 05:40 Sodium Level 140 mmol/L 140 mmol/L Potassium Level 4.7 mmol/L 3.8 mmol/L Chloride Level 108 mmol/L 109 mmol/L Carbon Dioxide Level 24 mmol/L 22 mmol/L Anion Gap 8.0 mmol/L 9.0 mmol/L Blood Urea Nitrogen 52 mg/dl 44 mg/dl Creatinine 3.20 mg/dl 2.60 mg/dl Est Creatinine Clear Calc Drug Dose 25.5 ml/min 31.4 ml/min Estimated GFR () 22.5 28.9 Estimated GFR (Non- 19.4 24.9 BUN/Creatinine Ratio 16.4 16.8 Random Glucose 137 mg/dl 119 mg/dl Lactic Acid Level 1.1 mmol/L Calcium Level 7.7 mg/dl 7.3 mg/dl Bedside Glucose 118 mg/dl Troponin I 0.019 ng/ml 0.021 ng/ml White Blood Count 7.19 K/uL Red Blood Count 3.02 M/uL Hemoglobin 8.6 g/dL Hematocrit 26.0 % Mean Corpuscular Volume 86.1 fL Mean Corpuscular Hemoglobin 28.5 pg Mean Corpuscular Hemoglobin Concent 33.1 g/dl Platelet Count 180 K/uL Mean Platelet Volume 8.5 fL Neutrophils (%) (Auto) 94.0 % Lymphocytes (%) (Auto) 2.9 % Monocytes (%) (Auto) 2.8 % Eosinophils (%) (Auto) 0.0 % Basophils (%) (Auto) 0.0 % Neutrophils # (Auto) 6.76 K/uL Lymphocytes # (Auto) 0.21 K/uL Monocytes # (Auto) 0.20 K/uL Eosinophils # (Auto) 0.00 K/uL Basophils # (Auto) 0.00 K/uL RDW Standard Deviation 57.7 fL RDW Coefficient of Variation 18.3 % Immature Granulocyte % (Auto) 0.3 % Immature Granulocyte # (Auto) 0.02 K/uL Red Blood Cell Morphology Unremarkable Random Vancomycin Level 15.1 mcg/ml Telemetry reviewed: Atrial fibrillation with a somewhat rapid heart rate Assessment and Plan #1. Atrial fibrillation with a rapid ventricular response: I can't tell a long he has been in the atrial fibrillation, an electrocardiogram from about one month ago showed sinus rhythm and I believe his arrhythmia is paroxysmal. He has been anticoagulated with Xarelto. Certainly he would be better off hemodynamically in sinus rhythm by don't think we need to consider cardioversion now unless we have further difficulty with hypotension. I think it would be worthwhile to continue his amiodarone however. I am going to give him another dose of digoxin 0.125 mg, but I won't put him on a daily dose until his creatinine improves. We may want to consider restarting his beta blockade but I've not done that as yet. If he becomes unstable we can certainly perform cardioversion. I think we will should restart anticoagulation as long as he is not going to undergo any procedures, which appears unlikely at this point. I have restarted Xarelto and is reduced dose of 15 mg. #2. Cardiomyopathy: Based on his history it sounds as though he had a cardiomyopathy, but it appears to have recovered and his echo shows good left ventricular function. I don't think we have to do anything specifically regarding that. I don't know the cause of his cardiomyopathy, it is possible it was atrial fibrillation with rapid heart rates in the past. He does not have evidence or a history of ischemic heart disease. #3. Hypotension: The cause of his hypotension is most likely sepsis, it does not appear to be cardiogenic. This morning he has recovered significantly. Thank you for allowing me to participate in his care.
[2016-06-10] MEDS: METOPROLOL SUCC 50MG EXT REL TAB PO SCH (08:56)
[2016-06-10] MEDS ORDERED: RIVAROXABAN 20 MG TAB PO SCH (09:00)
[2016-06-10] MEDS: NORMOSOL R 1,000 ML IV SCH ×2 (09:58→17:55)
[2016-06-10] MEDS ORDERED: LINEZOLID / D5W 600 MG in PREMIXED IN D5W 300 ML IV SCH (10:00)
--- NOTE | 2016-06-10 10:15 | Critical Care Progress Note ---
Critical Care Progress Note Date of Service Jun 10, 2016. ICU Day ICU Day Number: [address] Miguel Subjective Feels well today. Has been passing urine and stool. Has some mild suprapubic tenderness. Objective GENERAL: Awake, alert, in no acute distress HENT: Normocephalic, atraumatic. Oropharynx unremarkable. EYES: Normal conjunctiva. Sclera non-icteric. NECK: Supple. No nuchal rigidity. FROM. No JVD. RESPIRATORY: Clear to auscultation. CARDIAC: Regular rate, normal rhythm. Extremities warm and well perfused. Pulses equal. ABDOMEN: Soft, non-distended. Mild suprapubic tenderness. No rebound or guarding. No masses. No CVA tenderness. LOWER EXTREMITIES: Calves are equal size bilaterally and non-tender. No edema. No discoloration. NEURO: Normal sensorium. No sensory or motor deficits noted. SKIN: No rash or jaundice noted. Current SOFA Score SOFA Score Response (Comments) Value Level of Hypotension No Hypotension 0 Creatinine (mg/dL) 2.0 - 3.4 2 Total 2 Previous SOFA Scores SOFA SCORE: 4 points on 06/09 Assessment & Plan PROBLEM LIST: 1. Gram positive bacteremia 2. Sepsis, likely from urinary source 3. Staph aureus urinary tract infection 4. Atrial fibrillation, on Xarelto for anticoagulation 5. Chronic kidney disease, stage IV 6. Acute on chronic renal insufficiency 7. Prostate Cancer 8. Hyperlipidemia 9. History of hypertension 10. Hypokalemia, on oral KCl replacement 11. History of bilateral kidney stones NEURO: GCS 15, RASS 0, CAM negative. Mild suprapubic pain. RESPIRATORY: 95% on 2L O2 by NC CXR 06/09/16: Moderate stable cardiomegaly. The lungs are clear. CVS: Most recent BP 127/77. CV drips: IV amiodarone. Rhythm: Atrial fibrillation. Rate controlled. EKG yesterday: A fib, 133bpm. QTc 413. Repeat pending. ECHO completed today: * Normal biventricular systolic function. * Normal chamber dimensions. * No significant valvular abnormalities. * EF 60-65% *Echo reviewed today. There is no obvious intracardiac thrombus. As he may require a Urological procedure, we will stop Pradaxa today,. FLUIDS/RENAL: Received 3L NSS fluid bolus prior to arriving in ICU Received IV fluids at 200mL/hour overnight Marrero: Present, has yellow urine present I&O: +3932mL total throughout admission Electrolytes WNL Cr improved to 2.6 from 3.8 CrCl 31.4 GI/NUTRITION: Tolerated regular diet Prophylaxis: None BM: Passed stool today ENDOCRINE: Glucose 118-152 HEME: Hb 8.6, Hct 26.0 - likely hemodilutional DVT Prophylaxis: SCDs. Holding Xarelto today. ID: Antibiotics: Imipenem day 2 IV Vancomycin day 1, now will switch to Zyvox 600mg q12h starting now Cultures: MRSA negative Blood from 06/09/16: Gram positive cocci x 2, sensitivities pending Urine pending from 06/09: Staph aureus, >100,000 CFU, sensitivities pending DISPOSITION: Will remain in ICU for another night Resident Physician Supervision Note: Dr. Montiel was resident physician during care of patient. I separately evaluated patient and did history and exam. I discussed the case with the resident and generally agree with the findings and plan. Patient with gram-positive bacteremia, urine grew staph aureus greater than 100, 000 CFU, previously this is been MSSA. At this time will continue broad- spectrum antibiotics for another 24 hours and I have changed the vancomycin to Zyvox we're also checking a random vancomycin level. I am preferring to use Zyvox given last dose adjustment in the setting of changing renal function. It appears that the nephrostomy tube on the left is still functioning there was no evidence of hydronephrosis and his creatinine is improving. Patient is critically ill due to sepsis secondary to gram-positive bacteremia I have personally spent 60 minutes of critical care time in the direct management of this patient. This is a life/limb threatening event. This includes time spent evaluating patient, direct bedside care, chart review, placing orders, interpretation of diagnostic studies, discussion with consultants, patient, and family members, as well as other required patient management activities. This time is exclusive of all separately billable procedures, and teaching time and separate from and in addition to any other critical care service time. Documented By: Siddhartha Miguel DO CATAWBA II Score Date Score Was Generated: Jun 09, 2016 CATAWBA II Total: 12 Consults & Procedures Consultants: Infectious Diseases Urology Procedures: Renal US: ULTRASOUND KIDNEYS AND BLADDER CLINICAL HISTORY: Sepsis. COMPARISON STUDY: Renal ultrasound dated 04/20/2016. TECHNIQUE: Real-time, grayscale, and color flow sonography of the kidneys and bladder is performed. Images are reviewed in the transverse and longitudinal planes. FINDINGS: Kidneys: The kidneys demonstrate mild cortical atrophy. The right kidney measures 13.4 x 6.7 x 6.6 cm and the left kidney measures 10.5 x 5.3 x 5.4 cm. There is no hydronephrosis. No shadowing renal calculi are identified. There is no sonographic evidence of contour deforming renal mass lesion. No perinephric fluid is identified. Bladder: The bladder is decompressed around a Marrero catheter and could not be evaluated. IMPRESSION: 1. The kidneys demonstrate mild cortical atrophy and are without hydronephrosis. 2. The bladder was decompressed around a Marrero catheter and could not be evaluated. Data Medications: Current Inpatient Medications Medications (Trade) Dose Ordered Sig/Richard Route Start Time Stop Time Status Last Admin Dose Admin Acetaminophen (Tylenol Tab) 650 mg Q4H PRN PO 06/09/16 15:15 07/09/16 15:14 06/10/16 04:10 650 MG Al Hydrox/Mg Hydrox/Simethicone (Maalox Max Susp) 15 ml Q4H PRN PO 06/09/16 15:15 07/09/16 15:14 Magnesium Hydroxide (Milk Of Magnesia Susp) 30 ml Q12H PRN PO 06/09/16 15:15 07/09/16 15:14 Ondansetron HCl (Zofran Inj) 4 mg Q6H PRN IV 06/09/16 15:15 07/09/16 15:14 Morphine Sulfate (MoRPHine SULFATE INJ) 2 mg Q30M PRN IV 06/09/16 15:15 06/23/16 15:14 Polyethylene (Miralax Powder Packet) 17 gm DAILY PRN PO 06/09/16 15:15 07/09/16 15:14 Aspirin (Ecotrin Tab) 81 mg DAILY PO 06/10/16 09:00 07/10/16 08:59 06/10/16 07:52 81 MG Atorvastatin Calcium (Lipitor Tab) 20 mg QAM PO 06/10/16 09:00 07/10/16 08:59 06/10/16 07:53 20 MG Digoxin (Lanoxin Tab) 0.25 mg DAILY@1600 PO 06/10/16 16:00 07/10/16 15:59 Ergocalciferol (Vitamin D Cap) 50,000 interunit Q7D PO 06/14/16 09:00 07/14/16 08:59 Finasteride (Proscar Tab) 5 mg QAM PO 06/10/16 09:00 07/10/16 08:59 06/10/16 07:53 5 MG Metoprolol Succinate (Toprol Xl Tab) 50 mg QAM PO 06/10/16 09:00 07/10/16 08:59 06/10/16 08:56 50 MG Paroxetine HCl (pAXil TAB) 10 mg QAM PO 06/10/16 09:00 07/10/16 08:59 Future Hold 06/10/16 07:53 10 MG Potassium Chloride (Klor-Con Tab) 20 meq QAM PO 06/10/16 09:00 07/10/16 08:59 06/10/16 07:53 20 MEQ Ranitidine HCl (zANTac TAB) 150 mg DAILY PRN PO 06/09/16 15:15 07/09/16 15:14 Tamsulosin HCl 0.4 mg 0.4 mg HS PO 06/09/16 21:00 07/09/16 20:59 06/09/16 20:39 0.4 MG Amiodarone HCL/ Dextrose (Nexterone / D5w) 200 ml @ 16.7 mls/hr [id number] IV 06/09/16 23:15 07/09/16 23:14 06/10/16 01:32 16.7 MLS/HR Imipenem/ Cilastatin Sodium 1 ea 1 ea UD PRN N/A 06/09/16 18:00 07/09/16 17:59 Imipenem/ Cilastatin Sodium 200 mg/Dextrose 108 ml @ 108 mls/hr Q6H IV 06/09/16 20:00 06/19/16 19:59 06/10/16 07:52 108 MLS/HR Parenteral Electrolyte Solution 1,000 ml @ 125 mls/hr Q8H IV 06/10/16 09:45 07/10/16 09:44 Linezolid/Prmx (Zyvox / D5W/ Premixed D5W) 300 ml @ 300 mls/hr Q12H IV 06/10/16 10:00 06/24/16 09:59 I & O: 24-Hour Column 06/10/16 08:00 Intake Total 6932 ml Output Total 3000 ml Balance 3932 ml Vital Signs: Date Time Temp Pulse Resp B/P Pulse Ox O2 Delivery O2 Flow Rate FiO2 06/10/16 09:24 37.1 100 22 97/55 98 Nasal Cannula 2.0 06/10/16 08:56 112 06/10/16 07:30 Nasal Cannula 2.0 06/10/16 07:30 37.4 102 22 102/49 97 Nasal Cannula 2.0 06/10/16 06:12 37.7 06/10/16 06:10 115 27 83/51 95 06/10/16 06:00 119 23 77/59 95 06/10/16 05:00 123 23 84/58 94 06/10/16 04:00 39.2 116 28 122/82 90 Nasal Cannula 2.0 06/10/16 04:00 Nasal Cannula 2.0 06/10/16 03:00 104 25 117/91 87 Nasal Cannula 2.0 06/10/16 02:00 104 22 101/63 95 Nasal Cannula 2.0 06/10/16 01:00 111 22 86/56 97 Nasal Cannula 2.0 06/10/16 00:00 38.1 22 82/57 Nasal Cannula 2.0 06/10/16 00:00 Nasal Cannula 2.0 06/09/16 23:00 126 23 89/55 96 Nasal Cannula 2.0 06/09/16 22:01 39.5 114 24 83/58 98 Nasal Cannula 2.0 06/09/16 20:00 37.4 122 25 114/83 95 Nasal Cannula 2.0 06/09/16 20:00 Nasal Cannula 2.0 06/09/16 19:37 124 06/09/16 19:30 128 26 06/09/16 19:01 108 27 138/58 06/09/16 19:00 107 29 06/09/16 18:15 103 22 108/64 06/09/16 18:00 99 20 114/67 06/09/16 18:00 101 21 109/65 95 Nasal Cannula 2.0 06/09/16 17:54 107 22 87/60 06/09/16 17:45 104 22 74/62 06/09/16 17:30 116 15 107/73 79 06/09/16 17:15 36.8 101 18 97/58 98 Nasal Cannula 2.0 06/09/16 17:15 104 14 91/54 96 06/09/16 16:31 110 18 72/51 95 Nasal Cannula 2.5 06/09/16 16:24 92 Nasal Cannula 2.5 06/09/16 16:00 37.1 112 18 78/58 96 Room Air 06/09/16 15:45 118 18 63/49 94 Room Air 06/09/16 14:56 37.3 105 22 92/51 95 Room Air 06/09/16 14:45 115 20 92/51 95 Room Air 06/09/16 14:31 107 17 69/43 94 06/09/16 14:16 118 21 116/73 91 06/09/16 14:00 118 22 111/88 95 Room Air 06/09/16 13:58 150 06/09/16 13:55 111 23 96/46 94 Room Air 06/09/16 13:48 93 Room Air 06/09/16 13:45 114 21 95/39 95 Room Air 06/09/16 13:41 132 28 64/46 96 Room Air 06/09/16 13:31 131 26 93/53 93 Room Air 06/09/16 13:26 123 23 79/51 93 Room Air 06/09/16 13:22 67/52 06/09/16 13:02 38.1 129 22 67/47 96 Room Air Laboratory Results: Last 24 Hours Test 06/09/16 13:15 06/09/16 13:26 06/09/16 13:48 06/09/16 14:44 White Blood Count 14.14 K/uL Red Blood Count 4.08 M/uL Hemoglobin 11.5 g/dL Hematocrit 34.4 % Mean Corpuscular Volume 84.3 fL Mean Corpuscular Hemoglobin 28.2 pg Mean Corpuscular Hemoglobin Concent 33.4 g/dl Platelet Count 296 K/uL Mean Platelet Volume 8.7 fL Neutrophils (%) (Auto) 91.6 % Lymphocytes (%) (Auto) 4.2 % Monocytes (%) (Auto) 3.7 % Eosinophils (%) (Auto) 0.0 % Basophils (%) (Auto) 0.1 % Neutrophils # (Auto) 12.97 K/uL Lymphocytes # (Auto) 0.59 K/uL Monocytes # (Auto) 0.52 K/uL Eosinophils # (Auto) 0.00 K/uL Basophils # (Auto) 0.01 K/uL RDW Standard Deviation 55.5 fL RDW Coefficient of Variation 17.9 % Immature Granulocyte % (Auto) 0.4 % Immature Granulocyte # (Auto) 0.05 K/uL Nucleated RBC Absolute Count (auto) 0.02 K/uL Nucleated Red Blood Cells % 0.1 % Prothrombin Time 12.2 SECONDS Prothromb Time International Ratio 1.1 Activated Partial Thromboplast Time 30.7 SECONDS Partial Thromboplastin Ratio 1.2 Sodium Level 134 mmol/L Potassium Level 4.9 mmol/L Chloride Level 100 mmol/L Carbon Dioxide Level 23 mmol/L Anion Gap 11.0 mmol/L 19.0 mmol/L Blood Urea Nitrogen 55 mg/dl Creatinine 3.70 mg/dl Est Creatinine Clear Calc Drug Dose 21.0 ml/min Estimated GFR () 18.9 Estimated GFR (Non- 16.3 BUN/Creatinine Ratio 14.7 Random Glucose 152 mg/dl Calcium Level 9.2 mg/dl Total Bilirubin 1.0 mg/dl Aspartate Amino Transf (AST/SGOT) 15 U/L Alanine Aminotransferase (ALT/SGPT) 29 U/L Alkaline Phosphatase 57 U/L Troponin I 0.033 ng/ml Total Protein 7.8 gm/dl Albumin 3.1 gm/dl Globulin 4.7 gm/dl Albumin/Globulin Ratio 0.7 Digoxin Level 0.4 ng/ml Bedside Lactic Acid Venous 2.34 mmol/L Bedside Hemoglobin 11.9 g/dl Bedside Hematocrit 35 % Bedside Sodium 136 mEq/L Bedside Potassium 4.9 mEq/L Bedside Chloride 102 mEq/L Bedside Total CO2 21 mEq/l Bedside Blood Urea Nitrogen 54 mg/dl Bedside Creatinine 3.5 mg/dl Bedside Glucose (other) 130 mg/dl Bedside Ionized Calcium ([place]) 1.10 mmol/l Urine Color YELLOW Urine Appearance TURBID Urine pH 6.5 Urine Specific [place] 1.010 Urine Protein 3+ Urine Glucose (UA) NEG Urine Ketones NEG Urine Occult Blood 3+ Urine Nitrite POS Urine Bilirubin NEG Urine Urobilinogen NEG Urine Leukocyte Esterase LARGE Urine WBC (Auto) >30 /hpf Urine RBC (Auto) >30 /hpf Urine Hyaline Casts (Auto) 10-30 /lpf Urine Epithelial Cells (Auto) >30 /lpf Urine Bacteria (Auto) NEG Urine Pathogenic Casts /lpf Test 06/09/16 18:51 06/09/16 20:41 06/09/16 21:56 06/10/16 05:40 Sodium Level 140 mmol/L 140 mmol/L Potassium Level 4.7 mmol/L 3.8 mmol/L Chloride Level 108 mmol/L 109 mmol/L Carbon Dioxide Level 24 mmol/L 22 mmol/L Anion Gap 8.0 mmol/L 9.0 mmol/L Blood Urea Nitrogen 52 mg/dl 44 mg/dl Creatinine 3.20 mg/dl 2.60 mg/dl Est Creatinine Clear Calc Drug Dose 25.5 ml/min 31.4 ml/min Estimated GFR () 22.5 28.9 Estimated GFR (Non- 19.4 24.9 BUN/Creatinine Ratio 16.4 16.8 Random Glucose 137 mg/dl 119 mg/dl Lactic Acid Level 1.1 mmol/L Calcium Level 7.7 mg/dl 7.3 mg/dl Bedside Glucose 118 mg/dl Troponin I 0.019 ng/ml 0.021 ng/ml White Blood Count 7.19 K/uL Red Blood Count 3.02 M/uL Hemoglobin 8.6 g/dL Hematocrit 26.0 % Mean Corpuscular Volume 86.1 fL Mean Corpuscular Hemoglobin 28.5 pg Mean Corpuscular Hemoglobin Concent 33.1 g/dl Platelet Count 180 K/uL Mean Platelet Volume 8.5 fL Neutrophils (%) (Auto) 94.0 % Lymphocytes (%) (Auto) 2.9 % Monocytes (%) (Auto) 2.8 % Eosinophils (%) (Auto) 0.0 % Basophils (%) (Auto) 0.0 % Neutrophils # (Auto) 6.76 K/uL Lymphocytes # (Auto) 0.21 K/uL Monocytes # (Auto) 0.20 K/uL Eosinophils # (Auto) 0.00 K/uL Basophils # (Auto) 0.00 K/uL RDW Standard Deviation 57.7 fL RDW Coefficient of Variation 18.3 % Immature Granulocyte % (Auto) 0.3 % Immature Granulocyte # (Auto) 0.02 K/uL Red Blood Cell Morphology Unremarkable Random Vancomycin Level 15.1 mcg/ml Test 06/10/16 09:42 Resident Tracking Resident Involvement: Resident Care Provided Care Provided: Adult Hospital Medicine (ICU)
--- NOTE | 2016-06-10 11:12 | Progress Note ---
Progress Note Date of Service Jun 10, 2016. Progress Note ID Consult Dictated #[id number] A/P: 1. GPC septicemia 2. Staph aureus uti (recent MSSA) 3. Fever 4. Leukocytosis -Suspect infected stent as well -Repeat blood cultures pending, await ID gpc, suspect S.aures, recent mssa but will await ID/ sensitivities -Change to dapto as zyvox not bacterocidal against staph -stop imipenem, no gnr found -Echo yesterday, no veg -Will follow, course will depend on management of stent -thank you
--- NOTE | 2016-06-10 11:23 | INFECT. DISEASE CONSULTATION ---
DATE OF CONSULTATION: 06/10/2016 REQUESTING PHYSICIAN: Dr. Elias. HISTORY OF PRESENT ILLNESS: This is a 66-year-old gentleman who was admitted after he had 3 days worth of fever and chills prior to admission. He did have a left nephrostomy tube placed around Thanksgiving secondary to outlet obstruction due to prostate cancer. This had been in place and had not been changed since its initial insertion. He did have his nephrostomy tube removed on Sunday. He tolerated this well and states the removal went without incident. Over the last 2-3 days he has developed subjective fevers and chills at home. He did have some burning with urination and suprapubic pressure. He presented to the Emergency Room yesterday and was found to be hypotensive. He also has had fevers with a T-max of 39.5. His temperature on presentation was 38.1. He was started on antibiotics in the Emergency Room consisting of vancomycin. He also was given imipenem in the ER. He was changed to imipenem and Zyvox. Infectious diseases was consulted for Zyvox approval. He did have blood cultures as part of his initial workup in the ER and those are growing Gram-positive cocci in both sets. Repeat blood cultures were drawn today and are pending. A urine culture that was also obtained in the Emergency Room is growing Staph aureus. Sensitivities are pending. He is tolerating antibiotics and states overall he is feeling better compared to admission, but is still complaining of some suprapubic pain. He denies any chest pain, cough, shortness of breath, nausea, vomiting or diarrhea. His remaining review of systems are unremarkable. He did have a urine culture dated 05/16/2016, which grew MSSA. He did have an ultrasound of the kidneys in the Emergency Room last evening which showed Marrero catheter in place and no evidence of hydronephrosis. A chest x-ray was also done in the Emergency Room and showed cardiomegaly with clear lungs. An echocardiogram was performed yesterday and does not show any evidence of endocarditis. FAMILY HISTORY: Noncontributory. SOCIAL HISTORY: Negative for tobacco use, alcohol use or drug use. ALLERGIES: He has no known drug allergies. PAST MEDICAL HISTORY: Prostate cancer, AFib and cardiomyopathy. PAST SURGICAL HISTORY: Significant for ureteral stent, left nephrostomy tube, which was removed on Sunday and prostate biopsy. CURRENT MEDICATIONS: Include vitamin D, digoxin, Zyvox, aspirin, Lipitor, Proscar, Toprol-XL, potassium, amiodarone, Flomax, imipenem, Maalox, Tylenol, milk of magnesia, Zofran, morphine, MiraLax and Zantac. PHYSICAL EXAMINATION: VITAL SIGNS: His T-max is 39.5, current temperature is 37.1; pulse 100, respiratory rate 22, blood pressure 97/55, oxygen saturation is 98% on 2 liters. GENERAL: He is awake, alert and oriented x3. He is in no acute distress. Mucous membranes are moist. HEENT: Extraocular muscles are intact. HEART: Without murmur. LUNGS: Clear. ABDOMEN: Soft with some suprapubic tenderness. There is no edema bilaterally. SKIN: Without rash. LABORATORY STUDIES: CBC reveals a white blood cell count of 7.1, hemoglobin is 8.6, platelets are 180. Chemistry panel reveals a sodium of 140, potassium 3.8, chloride 109, bicarbonate 22, BUN 44, creatinine 2.6, glucose is 119. Urinalysis had greater than 30 WBCs with +1 bacteria on the . Urinalysis done in the ER yesterday again has greater than 30 WBCs, but no bacteria. Urine culture is growing Staph aureus. Previous urine culture from 05/16/2016 is growing MSSA. Blood cultures from the are growing Gram-positive cocci in both sets. Repeat blood cultures are pending. IMAGING: As above. ASSESSMENT AND PLAN: 1. Gram-positive septicemia, likely Staph aureus with recent and current positive urine cultures. He did have cultures positive for methicillin-susceptible Staphylococcus aureus; however, pending sensitivities he will be started on daptomycin. Zyvox is bacteriostatic and not indicated for bloodstream infection and he will be transitioned to daptomycin. If his blood cultures return with methicillin-susceptible Staphylococcus aureus, he certainly could be narrowed to Rocephin; however, I will await final ID and sensitivities on the Gram-positive cocci in his blood cultures from the . Echo was negative. Repeat blood cultures are pending. Imipenem will be discontinued as there is no evidence of Gram-negative infection. We will follow along with you. Thank you for this consultation.
[2016-06-10] MEDS ORDERED: DAPTOmycin IV 550 MG in SODIUM CHLORIDE 0.9% 50ML 50 ML IV SCH (13:00)
[2016-06-10] MEDS: SIMETHICONE 80 MG CHEW PO PRN (14:32)
--- NOTE | 2016-06-10 14:34 | GENITOURINARY CONSULTATION ---
DATE OF CONSULTATION: 06/10/2016 REASON FOR THE CONSULT: Urosepsis, history of prostate cancer with bilateral ureteral obstruction and bilateral stents. HISTORY OF PRESENTATION: The patient is an unfortunate 66-year-old male who developed a locally advanced prostate cancer, causing bilateral ureteral obstruction with a need for bilateral stents, right greater than left. The left stent was unable to drain properly, so he actually ended up having a left-sided percutaneous nephrostomy. The patient at times has also had a Marrero catheter because of inability to void. He has been on hormonal therapy with significant response to this PSA lowering with PSA going from over 100 down to low single digits, and patient recently had a stent placed in his left side from above as was difficult to place from below at [place]. He still had his left percutaneous nephrostomy until earlier this week when it was removed by Dr. Almeida on Sunday. He began to have fever several days subsequent to this in the last few days leading into yesterday, he became increasingly ill. He was later brought to the hospital with hypotension, was admitted to the ICU, started on fluids and renal sonogram was done, as I spoke with the ICU director yesterday to confirm that there was no evidence of hydronephrosis. None was found, indicating what appeared to be adequate drainage of the bilateral stents, and patient had a Marrero catheter in place and he has responded well to fluids and IV antibiotics. The patient does have apparent staph aureus urosepsis, staph growing in his urine and gram positive probable staph growing in his blood as well. Today, he seems hemodynamically stable. He is more alert. His creatinine is coming down with better hydration and he is making urine. ALLERGIES: The patient has no known drug allergies. SOCIAL HISTORY: The patient has no history of smoking. He is . history of high blood pressure and heart disease. MEDICATIONS: Aspirin, Lipitor, Firmagon, digoxin, Proscar, Lasix, Toprol-XL, Paxil, Klor-Con, quinapril, Xarelto and Flomax. REVIEW OF SYSTEMS: Please refer to the admitting history and physical. PHYSICAL EXAMINATION: GENERAL: The patient is a pale man in mild distress. He denies any pain in his abdomen or flank. HEENT: Unremarkable. He has no obvious respiratory distress. He has no evidence of any pedal edema. ABDOMEN: Soft, nontender. EXTREMITIES: Unremarkable without calf tenderness. NEUROLOGIC: He is alert and oriented without obvious focal or sensory deficit. SKIN: Normal without any obvious rash. LABORATORY DATA: Admitting white blood cell count was 14,000 and this has come down overnight to normal at 7000. The patient is now afebrile and his blood pressure which was below 90 much of yesterday has now returned to 90s and 100s. ASSESSMENT: Advanced prostate cancer with bilateral ureteral obstruction requiring stents and a Marrero catheter at this point with urosepsis from staph aureus. The patient will be treated as there is no evidence of hydronephrosis at this time. After he is stable, we would give him a voiding trial and make sure he is adequately emptying and will need to be on antibiotics for a significant period of time to sterilize his urinary tract with the indwelling Marrero catheters. The patient will be followed by Dr. Almeida next week. OBI
[2016-06-10] MEDS: LACTOBACILLUS ACIDOPHILUS (FLORANEX) TAB PO SCH (16:27)
[2016-06-10] MEDS: DIGOXIN 0.25 MG TAB PO SCH (16:27)
[2016-06-10] MEDS ORDERED: IMIPENEM/CILASTATIN IV 300 MG in DEXTROSE 5% 100ML 100 ML IV SCH (20:00)
--- NOTE | 2016-06-10 20:23 | Progress Note ---
Subjective Date of Service: Jun 10, 2016. Subjective Pt evaluation today including: conversation w/ patient, conversation w/ family ( at bedside), physical exam, chart review, lab review, review of studies ( renal u/s), conversation w/ [employer] consultant (critical care), review of inpatient medication list Pain: none reported PO Intake: improving Voiding: [place] catheter in place tele overnight with stable a. fib he denies dyspnea main complaint is that of mild bloating and excessive flatus but denies diarrhea BPs improved overnight with copious hydration Problem List Medical Problems: (1) Acute on chronic kidney failure Status: Acute (2) Atrial fibrillation with RVR Status: Acute (3) Septic shock Status: Acute Review of Systems Constitutional: + fever, No chills Respiratory: No cough, No dyspnea on exertion, No shortness of breath Cardiac: No chest pain, No orthopnea Abdomen: No nausea, No pain, No vomiting Objective Vital Signs Date Time Temp Pulse Resp B/P Pulse Ox O2 Delivery O2 Flow Rate FiO2 06/10/16 20:03 37.6 97 24 116/68 97 Nasal Cannula 2.0 06/10/16 20:01 Nasal Cannula 2.0 06/10/16 17:58 37.4 97 22 110/61 96 Nasal Cannula 2.0 06/10/16 17:00 103 24 110/61 06/10/16 16:30 95 23 115/75 92 06/10/16 16:27 90 06/10/16 16:00 Nasal Cannula 2.0 06/10/16 16:00 37.7 102 22 110/61 96 Nasal Cannula 2.0 06/10/16 16:00 101 23 114/66 06/10/16 15:30 108 23 139/76 97 06/10/16 15:00 101 20 116/67 86 06/10/16 14:30 98 23 112/80 06/10/16 14:00 110 23 125/79 97 06/10/16 13:30 37.7 112 22 114/65 96 Nasal Cannula 2.0 06/10/16 13:30 109 18 114/65 92 06/10/16 12:30 93 20 112/66 06/10/16 12:00 100 23 111/66 97 06/10/16 11:30 37.6 100 22 101/62 96 Nasal Cannula 2.0 06/10/16 11:30 Nasal Cannula 2.0 06/10/16 11:30 105 21 109/72 06/10/16 11:00 101 21 102/63 92 06/10/16 10:30 106 22 101/61 96 06/10/16 10:00 109 20 100/59 92 06/10/16 09:30 112 21 113/55 97 06/10/16 09:24 37.1 100 22 97/55 98 Nasal Cannula 2.0 06/10/16 09:00 125 23 97/55 91 06/10/16 08:56 112 06/10/16 08:54 109 24 108/54 95 06/10/16 08:30 120 25 94/62 06/10/16 08:00 142 18 114/75 87 06/10/16 07:30 Nasal Cannula 2.0 06/10/16 07:30 37.4 102 22 102/49 97 Nasal Cannula 2.0 06/10/16 07:30 117 24 120/77 96 06/10/16 07:00 113 18 102/49 96 06/10/16 06:12 37.7 06/10/16 06:10 115 27 83/51 95 06/10/16 06:00 119 23 77/59 95 06/10/16 05:00 123 23 84/58 94 06/10/16 04:00 39.2 116 28 122/82 90 Nasal Cannula 2.0 06/10/16 04:00 Nasal Cannula 2.0 06/10/16 03:00 104 25 117/91 87 Nasal Cannula 2.0 06/10/16 02:00 104 22 101/63 95 Nasal Cannula 2.0 06/10/16 01:00 111 22 86/56 97 Nasal Cannula 2.0 06/10/16 00:00 38.1 22 82/57 Nasal Cannula 2.0 06/10/16 00:00 Nasal Cannula 2.0 06/09/16 23:00 126 23 89/55 96 Nasal Cannula 2.0 06/09/16 22:01 39.5 114 24 83/58 98 Nasal Cannula 2.0 Physical Exam General Appearance: no apparent distress, + obese ENT: pharynx normal Neck: no JVD Respiratory/Chest: lungs clear, no respiratory distress, no accessory muscle use Cardiovascular: no murmur, + tachycardia, + irregularly irregular Abdomen: normal bowel sounds, non tender, no organomegaly, + distended Extremities: no pedal edema Neurologic/Psychiatric: alert, oriented x 3 Laboratory Results Last 24 Hours Test 06/09/16 20:41 06/09/16 21:56 06/10/16 05:40 06/10/16 10:10 Bedside Glucose 118 mg/dl Troponin I 0.019 ng/ml 0.021 ng/ml White Blood Count 7.19 K/uL Red Blood Count 3.02 M/uL Hemoglobin 8.6 g/dL Hematocrit 26.0 % Mean Corpuscular Volume 86.1 fL Mean Corpuscular Hemoglobin 28.5 pg Mean Corpuscular Hemoglobin Concent 33.1 g/dl Platelet Count 180 K/uL Mean Platelet Volume 8.5 fL Neutrophils (%) (Auto) 94.0 % Lymphocytes (%) (Auto) 2.9 % Monocytes (%) (Auto) 2.8 % Eosinophils (%) (Auto) 0.0 % Basophils (%) (Auto) 0.0 % Neutrophils # (Auto) 6.76 K/uL Lymphocytes # (Auto) 0.21 K/uL Monocytes # (Auto) 0.20 K/uL Eosinophils # (Auto) 0.00 K/uL Basophils # (Auto) 0.00 K/uL RDW Standard Deviation 57.7 fL RDW Coefficient of Variation 18.3 % Immature Granulocyte % (Auto) 0.3 % Immature Granulocyte # (Auto) 0.02 K/uL Red Blood Cell Morphology Unremarkable Sodium Level 140 mmol/L Potassium Level 3.8 mmol/L Chloride Level 109 mmol/L Carbon Dioxide Level 22 mmol/L Anion Gap 9.0 mmol/L Blood Urea Nitrogen 44 mg/dl Creatinine 2.60 mg/dl Est Creatinine Clear Calc Drug Dose 31.4 ml/min Estimated GFR () 28.9 Estimated GFR (Non- 24.9 BUN/Creatinine Ratio 16.8 Random Glucose 119 mg/dl Calcium Level 7.3 mg/dl Random Vancomycin Level 15.1 mcg/ml 11.3 mcg/ml Test 06/10/16 10:54 06/10/16 15:21 Bedside Glucose 167 mg/dl 114 mg/dl Assessment and Plan 66yo male with: 1. septic shock 2nd to staph aureus UTI and bacteremia - improved. Continue supportive care measures, IVF, IV abx therapy. Fortunately has not required pressors. Echo w/o evidence of endocarditis. ID following; recs appreciated. 2. acute renal failure 2nd to sepsis-associated ATN - improving. Cont IVF, repeat BMP in am. 3. CKD stage 3 - per records baseline Cr is 1.9-2. 4. a. fib with RVR - on BB, digoxin, and amiodarone infusion. Cardiology consult appreciated. Rates reasonable at this time. Resume xarelto when there are no plans for procedures. 5. bloating/gas - add lactinex TID. Add simethicone. 6. prostate cancer - s/p recent nephrostomy tubes due to obstruction and ureteral stents. Defer to urology for management. 7. BPH - flomax and finasteride. [place] in place. 8. DVT proph - SCDs. 9. FEN - continue same IVF. Repeat labs in am. Diet as tolerated. would obtain PT and OT in am if improved/stable updated at bedside appreciate critical care assistance Continued [facility] stay due to: multiple IV medications needed Discharge planning: uncertain
[2016-06-10] MEDS: TAMSULOSIN HCL 0.4 MG CAP PO SCH (20:33)
[2016-06-11] VITALS (22 sets, daily range): BP systolic 86–125; BP diastolic 58–77; PULSE 95–124; TEMP 36.6–37.9; O2SAT 77–98
[2016-06-11] MEDS: AMIODARONE / D5W 200 ML IV SCH ×2 (00:07→11:20)
[2016-06-11] MEDS: NORMOSOL R 1,000 ML IV SCH (01:58)
[2016-06-11 06:39] LABS: EOS % 1.3 %; LYMPH % 3.9 %; LYMPH ABS # 0.15 K/uL (1.2-3.4); MEAN CELL VOLUME 84.7 fL (80-100); MEAN CORPUSCULAR HEMOGLOBIN 28.5 pg (25-34); MEAN CORPUSCULAR HGB CONC 33.6 g/dl (32-36); MEAN PLATELET VOLUME 8.7 fL (7.4-10.4); MONO % 6.3 %; NEUT % 88.5 %; PLATELET COUNT 168 K/uL (130-400); RED BLOOD COUNT 2.95 M/uL (4.7-6.1)
[2016-06-11 07:10] LABS: CREATININE 1.8 mg/dl (0.60-1.40)
[2016-06-11 07:11] LABS: CALCIUM 7.9 mg/dl (8.5-10.1); POTASSIUM 3.9 mmol/L (3.5-5.1)
[2016-06-11 07:19] LABS: ANISOCYTOSIS PRESENT; COMPLETE YES
[2016-06-11] MEDS: LACTOBACILLUS ACIDOPHILUS (FLORANEX) TAB PO SCH (07:37)
[2016-06-11] MEDS: METOPROLOL SUCC 50MG EXT REL TAB PO SCH (07:38)
[2016-06-11] MEDS: ATORVASTATIN 20 MG TAB PO SCH (07:38)
[2016-06-11] MEDS: PAROXETINE 20 MG TAB PO SCH (07:38)
[2016-06-11] MEDS: ASPIRIN 81 MG ECTAB PO SCH (07:38)
[2016-06-11] MEDS: POTASSIUM CHLORIDE 20 MEQ TABCR PO SCH (07:39)
[2016-06-11] MEDS: SIMETHICONE 80 MG CHEW PO PRN (07:39)
[2016-06-11] MEDS: FINASTERIDE 5 MG TAB PO SCH (07:39)
[2016-06-11] MEDS: ACETAMINOPHEN 325 MG TAB PO PRN ×2 (07:41→19:07)
[2016-06-11] MEDS: CEFTRIAXONE SOD INJ 2,000 MG in DEXTROSE 5% 50ML 50 ML IV SCH (10:34)
--- NOTE | 2016-06-11 11:46 | Cardiology Follow-Up ---
Subjective Date of Service: Jun 11, 2016. Pt evaluation today including: conversation w/ patient, physical exam, lab review, review of studies, conversation w/ rn lactation consultant, review of inpatient medication list History of Present Illness This is a very pleasant 66 year old gentleman who has had his cardiac care in the [facility]. He presented here with hypotension. He is awake and alert and can provide some history, although a lot of the history is from his . He has been having difficulty with urologic issues including urine ostomy tubes and stent placement recently. From the cardiovascular standpoint he has evidently a long history of atrial fibrillation, a number of years ago he evidently had left ventricular dysfunction (although the family is not too familiar with it) and was wearing a LifeVest. Evidently his cardiac function improved and the LifeVest was discontinued and an ICD was not recommended. He is not very aware of his atrial arrhythmia, apparently it was identified when he went in for routine test. He does not seem to have palpitations or other symptoms related to it. He was having a several week history of weakness and a 24-hour history of nausea , dizziness and dysuria. He has been feeling chills and feverish for several days as well, he has had diarrhea. He has not had chest discomfort. On arrival in the emergency room he was noted to have hypotension with a pressure of 67/47, and a rapid heart rate. He has been treated with beta- blockade and intravenous amiodarone for rate control. Prior to admission he was taking digoxin 0.25 mg daily (although his level was very low) as well as metoprolol succinate 50 mg daily and Xarelto 15 mg at bedtime which he took last 06/08/2016. He appeared to be septic, an echocardiogram done in the emergency room showed reasonably good left ventricular function and it appeared that his hypotension was not cardiac, probably sepsis. He was treated with antibiotics, intravenous amiodarone was continued since he was in atrial fibrillation with a rapid heart rate. Metoprolol was held due to hypotension. He has stabilized with a good blood pressure, his heart rate remains somewhat elevated. He has no complaints sitting eating breakfast. Social History Smoking Status: Never Smoker History of Alcohol Use: No Review of Systems Respiratory: No cough, No dyspnea on exertion, No shortness of breath Cardiac: No chest pain, No orthopnea Medications Cardiovascular: Item Value Date Time Digoxin 0.25 mg 06/10/16 1600 (Lanoxin Tab) DAILY@1600/PO 06/10/16 1627 Aspirin 81 mg 06/10/16 0900 (Ecotrin Tab) DAILY/PO 06/11/16 0738 Atorvastatin 20 mg 06/10/16 0900 Calcium QAM/PO 06/11/16 0738 (Lipitor Tab) Metoprolol 50 mg 06/10/16 0900 Succinate QAM/PO 06/11/16 0738 (Toprol Xl Tab) Potassium Chloride 20 meq 06/10/16 0900 (Klor-Con Tab) QAM/PO 06/11/16 0739 Amiodarone HCL/ 200 ml @ 16.7 mls/hr 06/09/16 2315 Dextrose .[id number] 06/11/16 1120 Objective Vital Signs Past 12 Hours Date Time Temp Pulse Resp B/P Pulse Ox O2 Delivery O2 Flow Rate FiO2 06/11/16 11:11 Room Air 06/11/16 11:11 36.6 110 20 96/62 96 Nasal Cannula 2.0 06/11/16 11:00 105 19 89/61 98 06/11/16 10:44 105 17 94/63 97 06/11/16 10:40 106 17 86/62 97 06/11/16 10:37 105 17 91/67 96 06/11/16 10:00 105 18 101/71 77 06/11/16 09:24 37.2 107 20 99/68 96 Nasal Cannula 2.0 06/11/16 09:00 113 20 99/68 98 06/11/16 08:31 117 21 93/62 95 06/11/16 08:00 124 24 95 06/11/16 07:36 37.6 06/11/16 07:20 Room Air 06/11/16 07:20 37.9 107 20 115/71 98 Nasal Cannula 2.0 06/11/16 07:00 104 24 115/71 97 06/11/16 06:00 107 20 118/65 98 Nasal Cannula 2.0 06/11/16 04:00 Nasal Cannula 2.0 06/11/16 04:00 37.7 96 20 109/70 96 Nasal Cannula 2.0 06/11/16 02:00 104 22 113/74 97 Nasal Cannula 2.0 06/11/16 00:01 37.1 110 22 114/73 96 Nasal Cannula 2.0 06/10/16 23:59 Nasal Cannula 2.0 Last Recorded Weight-Kilograms: 94.000 Intake & Output 8-Hour Column 06/10/16 06/11/16 06/11/16 16:00 00:00 08:00 Intake Total 2089 ml 1508 ml 1382 ml Output Total 1300 ml 1250 ml 1650 ml Balance 789 ml 258 ml -268 ml 24-Hour Column 06/11/16 08:00 Intake Total 4979 ml Output Total 4200 ml Balance 779 ml Physical Exam Constitutional: General Apperance: heathly-appearing Level of Distress: moderate distress Lungs: Respiratory effort: no dyspnea, good air movement Auscultation: breath sounds normal, no wheezing Cardiovascular: Heart Auscultation: no murmurs, no rubs, no gallops, tachycardia, irregular rate rhythm Peripheral Pulses: Bruits: none appreciated Extremities: no edema Data Laboratory Results: Last 24 Hours Test 06/10/16 15:21 06/10/16 20:34 06/11/16 06:04 Bedside Glucose 114 mg/dl 104 mg/dl White Blood Count 3.80 K/uL Red Blood Count 2.95 M/uL Hemoglobin 8.4 g/dL Hematocrit 25.0 % Mean Corpuscular Volume 84.7 fL Mean Corpuscular Hemoglobin 28.5 pg Mean Corpuscular Hemoglobin Concent 33.6 g/dl Platelet Count 168 K/uL Mean Platelet Volume 8.7 fL Neutrophils (%) (Auto) 88.5 % Lymphocytes (%) (Auto) 3.9 % Monocytes (%) (Auto) 6.3 % Eosinophils (%) (Auto) 1.3 % Basophils (%) (Auto) 0.0 % Neutrophils # (Auto) 3.36 K/uL Lymphocytes # (Auto) 0.15 K/uL Monocytes # (Auto) 0.24 K/uL Eosinophils # (Auto) 0.05 K/uL Basophils # (Auto) 0.00 K/uL RDW Standard Deviation 56.6 fL RDW Coefficient of Variation 17.9 % Immature Granulocyte % (Auto) 0.0 % Immature Granulocyte # (Auto) 0.00 K/uL Nucleated RBC Absolute Count (auto) 0.02 K/uL Nucleated Red Blood Cells % 0.6 % Anisocytosis PRESENT Sodium Level 139 mmol/L Potassium Level 3.9 mmol/L Chloride Level 106 mmol/L Carbon Dioxide Level 26 mmol/L Anion Gap 7.0 mmol/L Blood Urea Nitrogen 27 mg/dl Creatinine 1.80 mg/dl Est Creatinine Clear Calc Drug Dose 45.3 ml/min Estimated GFR () 45.1 Estimated GFR (Non- 38.9 BUN/Creatinine Ratio 15.0 Random Glucose 106 mg/dl Calcium Level 7.9 mg/dl Total Creatine Kinase 79 U/L Telemetry reviewed: Atrial fibrillation, heart rate better although a little bit fast sitting at his bedside. Assessment and Plan #1. Atrial fibrillation with a rapid ventricular response: I can't tell a long he has been in the atrial fibrillation, an electrocardiogram from about one month ago showed sinus rhythm and I believe his arrhythmia is paroxysmal. He has been anticoagulated with Xarelto. Certainly he would be better off hemodynamically in sinus rhythm by don't think we need to consider cardioversion now. I think we can stop his amiodarone and switch back to his beta ailyn. I am also going to stop giving him digoxin with his renal insufficiency. I think we will should restart anticoagulation as long as he is not going to undergo any procedures. #2. Cardiomyopathy: Based on his history it sounds as though he had a cardiomyopathy, but it appears to have recovered and his echo shows good left ventricular function. I don't think we have to do anything specifically regarding that. I don't know the cause of his cardiomyopathy, it is possible it was atrial fibrillation with rapid heart rates in the past. He does not have evidence or a history of ischemic heart disease. #3. Hypotension: The cause of his hypotension is most likely sepsis, it does not appear to be cardiogenic. He has recovered significantly. Thank you for allowing me to participate in his care.
--- NOTE | 2016-06-11 12:07 | Progress Note ---
Subjective Date of Service: Jun 11, 2016. Subjective Pt evaluation today including: conversation w/ patient, physical exam, lab review, conversation w/ provider contracting consultant Pain: none gas and diarrhea Problem List Medical Problems: (1) Acute on chronic kidney failure Status: Acute (2) Atrial fibrillation with RVR Status: Acute (3) Septic shock Status: Acute Objective Vital Signs Date Time Temp Pulse Resp B/P Pulse Ox O2 Delivery O2 Flow Rate FiO2 06/11/16 11:11 Room Air 06/11/16 11:11 36.6 110 20 96/62 96 Nasal Cannula 2.0 06/11/16 11:00 105 19 89/61 98 06/11/16 10:44 105 17 94/63 97 06/11/16 10:40 106 17 86/62 97 06/11/16 10:37 105 17 91/67 96 06/11/16 10:00 105 18 101/71 77 06/11/16 09:24 37.2 107 20 99/68 96 Nasal Cannula 2.0 06/11/16 09:00 113 20 99/68 98 06/11/16 08:31 117 21 93/62 95 06/11/16 08:00 124 24 95 06/11/16 07:36 37.6 06/11/16 07:20 Room Air 06/11/16 07:20 37.9 107 20 115/71 98 Nasal Cannula 2.0 06/11/16 07:00 104 24 115/71 97 06/11/16 06:00 107 20 118/65 98 Nasal Cannula 2.0 06/11/16 04:00 Nasal Cannula 2.0 06/11/16 04:00 37.7 96 20 109/70 96 Nasal Cannula 2.0 06/11/16 02:00 104 22 113/74 97 Nasal Cannula 2.0 06/11/16 00:01 37.1 110 22 114/73 96 Nasal Cannula 2.0 06/10/16 23:59 Nasal Cannula 2.0 06/10/16 22:01 91 22 138/73 100 Nasal Cannula 2.0 06/10/16 20:03 37.6 97 24 116/68 97 Nasal Cannula 2.0 06/10/16 20:01 Nasal Cannula 2.0 06/10/16 17:58 37.4 97 22 110/61 96 Nasal Cannula 2.0 06/10/16 17:00 103 24 110/61 4/15/17 16:30 95 23 115/75 92 06/10/16 16:27 90 06/10/16 16:00 Nasal Cannula 2.0 06/10/16 16:00 37.7 102 22 110/61 96 Nasal Cannula 2.0 06/10/16 16:00 101 23 114/66 06/10/16 15:30 108 23 139/76 97 06/10/16 15:00 101 20 116/67 86 06/10/16 14:30 98 23 112/80 06/10/16 14:00 110 23 125/79 97 06/10/16 13:30 37.7 112 22 114/65 96 Nasal Cannula 2.0 06/10/16 13:30 109 18 114/65 92 06/10/16 12:30 93 20 112/66 Laboratory Results Last 24 Hours Test 06/10/16 15:21 06/10/16 20:34 06/11/16 06:04 Bedside Glucose 114 mg/dl 104 mg/dl White Blood Count 3.80 K/uL Red Blood Count 2.95 M/uL Hemoglobin 8.4 g/dL Hematocrit 25.0 % Mean Corpuscular Volume 84.7 fL Mean Corpuscular Hemoglobin 28.5 pg Mean Corpuscular Hemoglobin Concent 33.6 g/dl Platelet Count 168 K/uL Mean Platelet Volume 8.7 fL Neutrophils (%) (Auto) 88.5 % Lymphocytes (%) (Auto) 3.9 % Monocytes (%) (Auto) 6.3 % Eosinophils (%) (Auto) 1.3 % Basophils (%) (Auto) 0.0 % Neutrophils # (Auto) 3.36 K/uL Lymphocytes # (Auto) 0.15 K/uL Monocytes # (Auto) 0.24 K/uL Eosinophils # (Auto) 0.05 K/uL Basophils # (Auto) 0.00 K/uL RDW Standard Deviation 56.6 fL RDW Coefficient of Variation 17.9 % Immature Granulocyte % (Auto) 0.0 % Immature Granulocyte # (Auto) 0.00 K/uL Nucleated RBC Absolute Count (auto) 0.02 K/uL Nucleated Red Blood Cells % 0.6 % Anisocytosis PRESENT Sodium Level 139 mmol/L Potassium Level 3.9 mmol/L Chloride Level 106 mmol/L Carbon Dioxide Level 26 mmol/L Anion Gap 7.0 mmol/L Blood Urea Nitrogen 27 mg/dl Creatinine 1.80 mg/dl Est Creatinine Clear Calc Drug Dose 45.3 ml/min Estimated GFR () 45.1 Estimated GFR (Non- 38.9 BUN/Creatinine Ratio 15.0 Random Glucose 106 mg/dl Calcium Level 7.9 mg/dl Total Creatine Kinase 79 U/L Assessment and Plan check c diff pt to floor per icu staff adjust antibiotic per culture Continued [facility] stay due to: multiple IV medications needed Discharge planning: uncertain
[2016-06-11] MEDS: DIGOXIN 0.25 MG TAB PO SCH (16:02)
--- NOTE | 2016-06-11 16:25 | Critical Care Progress Note ---
Critical Care Progress Note Date of Service Jun 11, 2016. ICU Day ICU Day Number: [address] Miguel Subjective Continues to improve, having gas and loose stool Objective GENERAL: Awake, alert, in no acute distress HENT: Normocephalic, atraumatic. Oropharynx unremarkable. EYES: Normal conjunctiva. Sclera non-icteric. NECK: Supple. No nuchal rigidity. FROM. No JVD. RESPIRATORY: Clear to auscultation. CARDIAC: Regular rate, normal rhythm. Extremities warm and well perfused. Pulses equal. ABDOMEN: Soft, non-distended. Mild suprapubic tenderness. No rebound or guarding. No masses. No CVA tenderness. LOWER EXTREMITIES: Calves are equal size bilaterally and non-tender. No edema. No discoloration. NEURO: Normal sensorium. No sensory or motor deficits noted. SKIN: No rash or jaundice noted. Current SOFA Score SOFA Score Response (Comments) Value Level of Hypotension No Hypotension 0 Creatinine (mg/dL) 1.2 - 1.9 1 Total 1 Previous SOFA Scores SOFA SCORE: 4 points on 06/09 2 points June 10 1 point June 11 Assessment & Plan PROBLEM LIST: 1. Gram positive bacteremia 2. Sepsis, likely from urinary source 3. Staph aureus urinary tract infection 4. Atrial fibrillation, on Xarelto for anticoagulation 5. Chronic kidney disease, stage IV 6. Acute on chronic renal insufficiency 7. Prostate Cancer 8. Hyperlipidemia 9. History of hypertension 10. Hypokalemia, on oral KCl replacement 11. History of bilateral kidney stones NEURO: GCS 15, RASS 0, CAM negative. Mild suprapubic pain. RESPIRATORY: 95% on 2L O2 by NC CXR 06/09/16: Moderate stable cardiomegaly. The lungs are clear. CVS: Discussed with cardiology, will add beta Fletcher and likely discontinue the Augie FLUIDS/RENAL: Creatinine improving GI/NUTRITION: Tolerated regular diet Prophylaxis: None BM: Passed stool today ENDOCRINE: Glucose 118-152 HEME: Possibly holds Xarelto one more day until Dr. Almeida has a chance to evaluate ID: Antibiotics: Changed antibiotics to Rocephin 2 g every 24 hours, will need reevaluation and future given indwelling urostomy stents. Cultures: MRSA negative Blood from 06/09/16: Gram positive cocci x 2, sensitivities pending Urine pending from 06/09: Staph aureus, >100,000 CFU, MSSA DISPOSITION: Stable for downgraded to telemetry status Discussed the case with Dr. Weiner JAMUL II Score Date Score Was Generated: Jun 09, 2016 JAMUL II Total: 12 Consults & Procedures Consultants: Infectious Diseases Urology Procedures: Renal US: ULTRASOUND KIDNEYS AND BLADDER CLINICAL HISTORY: Sepsis. COMPARISON STUDY: Renal ultrasound dated 04/20/2016. TECHNIQUE: Real-time, grayscale, and color flow sonography of the kidneys and bladder is performed. Images are reviewed in the transverse and longitudinal planes. FINDINGS: Kidneys: The kidneys demonstrate mild cortical atrophy. The right kidney measures 13.4 x 6.7 x 6.6 cm and the left kidney measures 10.5 x 5.3 x 5.4 cm. There is no hydronephrosis. No shadowing renal calculi are identified. There is no sonographic evidence of contour deforming renal mass lesion. No perinephric fluid is identified. Bladder: The bladder is decompressed around a Marrero catheter and could not be evaluated. IMPRESSION: 1. The kidneys demonstrate mild cortical atrophy and are without hydronephrosis. 2. The bladder was decompressed around a Marrero catheter and could not be evaluated. Data Medications: Current Inpatient Medications Medications (Trade) Dose Ordered Sig/Richard Route Start Time Stop Time Status Last Admin Dose Admin Acetaminophen (Tylenol Tab) 650 mg Q4H PRN PO 06/09/16 15:15 07/09/16 15:14 06/11/16 07:41 650 MG Al Hydrox/Mg Hydrox/Simethicone (Maalox Max Susp) 15 ml Q4H PRN PO 06/09/16 15:15 07/09/16 15:14 Magnesium Hydroxide (Milk Of Magnesia Susp) 30 ml Q12H PRN PO 06/09/16 15:15 07/09/16 15:14 Ondansetron HCl (Zofran Inj) 4 mg Q6H PRN IV 06/09/16 15:15 07/09/16 15:14 Morphine Sulfate (MoRPHine SULFATE INJ) 2 mg Q30M PRN IV 06/09/16 15:15 06/23/16 15:14 Polyethylene (Miralax Powder Packet) 17 gm DAILY PRN PO 06/09/16 15:15 07/09/16 15:14 Aspirin (Ecotrin Tab) 81 mg DAILY PO 06/10/16 09:00 07/10/16 08:59 06/11/16 07:38 81 MG Atorvastatin Calcium (Lipitor Tab) 20 mg QAM PO 06/10/16 09:00 07/10/16 08:59 06/11/16 07:38 20 MG Digoxin (Lanoxin Tab) 0.25 mg DAILY@1600 PO 06/10/16 16:00 07/10/16 15:59 06/11/16 16:02 0.25 MG Ergocalciferol (Vitamin D Cap) 50,000 interunit Q7D PO 06/14/16 09:00 07/14/16 08:59 Finasteride (Proscar Tab) 5 mg QAM PO 06/10/16 09:00 07/10/16 08:59 06/11/16 07:39 5 MG Metoprolol Succinate (Toprol Xl Tab) 50 mg QAM PO 06/10/16 09:00 07/10/16 08:59 06/11/16 07:38 50 MG Paroxetine HCl (pAXil TAB) 10 mg QAM PO 06/10/16 09:00 07/10/16 08:59 Future hold 06/11/16 07:38 10 MG Potassium Chloride (Klor-Con Tab) 20 meq QAM PO 06/10/16 09:00 07/10/16 08:59 06/11/16 07:39 20 MEQ Ranitidine HCl (zANTac TAB) 150 mg DAILY PRN PO 06/09/16 15:15 07/09/16 15:14 Tamsulosin HCl (Flomax Cap) 0.4 mg HS PO 06/09/16 21:00 07/09/16 20:59 06/10/16 20:33 0.4 MG Simethicone 80 mg 80 mg Q6H PRN PO 06/10/16 14:15 07/10/16 14:14 06/11/16 07:39 80 MG Ceftriaxone Sodium/Dextrose (Rocephin Inj/D5 50ml) 70 ml @ 100 mls/hr DAILY@1000 IV 06/11/16 10:00 06/21/16 09:59 06/11/16 10:34 100 MLS/HR I & O: 24-Hour Column 06/11/16 08:00 Intake Total 4979 ml Output Total 4200 ml Balance 779 ml Vital Signs: Date Time Temp Pulse Resp B/P Pulse Ox O2 Delivery O2 Flow Rate FiO2 06/11/16 16:02 110 06/11/16 15:30 Room Air 06/11/16 15:30 36.6 110 20 101/58 96 Nasal Cannula 2.0 06/11/16 11:11 Room Air 06/11/16 11:11 36.6 110 20 96/62 96 Nasal Cannula 2.0 06/11/16 11:00 105 19 89/61 98 06/11/16 10:44 105 17 94/63 97 06/11/16 10:40 106 17 86/62 97 06/11/16 10:37 105 17 91/67 96 06/11/16 10:00 105 18 101/71 77 06/11/16 09:24 37.2 107 20 99/68 96 Nasal Cannula 2.0 06/11/16 09:00 113 20 99/68 98 06/11/16 08:31 117 21 93/62 95 06/11/16 08:00 124 24 95 06/11/16 07:36 37.6 06/11/16 07:20 Room Air 06/11/16 07:20 37.9 107 20 115/71 98 Nasal Cannula 2.0 06/11/16 07:00 104 24 115/71 97 06/11/16 06:00 107 20 118/65 98 Nasal Cannula 2.0 06/11/16 04:00 Nasal Cannula 2.0 06/11/16 04:00 37.7 96 20 109/70 96 Nasal Cannula 2.0 06/11/16 02:00 104 22 113/74 97 Nasal Cannula 2.0 06/11/16 00:01 37.1 110 22 114/73 96 Nasal Cannula 2.0 06/10/16 23:59 Nasal Cannula 2.0 06/10/16 22:01 91 22 138/73 100 Nasal Cannula 2.0 06/10/16 20:03 37.6 97 24 116/68 97 Nasal Cannula 2.0 06/10/16 20:01 Nasal Cannula 2.0 06/10/16 17:58 37.4 97 22 110/61 96 Nasal Cannula 2.0 06/10/16 17:00 103 24 110/61 06/10/16 16:30 95 23 115/75 92 06/10/16 16:27 90 Laboratory Results: Last 24 Hours Test 06/10/16 20:34 06/11/16 06:04 Bedside Glucose 104 mg/dl White Blood Count 3.80 K/uL Red Blood Count 2.95 M/uL Hemoglobin 8.4 g/dL Hematocrit 25.0 % Mean Corpuscular Volume 84.7 fL Mean Corpuscular Hemoglobin 28.5 pg Mean Corpuscular Hemoglobin Concent 33.6 g/dl Platelet Count 168 K/uL Mean Platelet Volume 8.7 fL Neutrophils (%) (Auto) 88.5 % Lymphocytes (%) (Auto) 3.9 % Monocytes (%) (Auto) 6.3 % Eosinophils (%) (Auto) 1.3 % Basophils (%) (Auto) 0.0 % Neutrophils # (Auto) 3.36 K/uL Lymphocytes # (Auto) 0.15 K/uL Monocytes # (Auto) 0.24 K/uL Eosinophils # (Auto) 0.05 K/uL Basophils # (Auto) 0.00 K/uL RDW Standard Deviation 56.6 fL RDW Coefficient of Variation 17.9 % Immature Granulocyte % (Auto) 0.0 % Immature Granulocyte # (Auto) 0.00 K/uL Nucleated RBC Absolute Count (auto) 0.02 K/uL Nucleated Red Blood Cells % 0.6 % Anisocytosis PRESENT Sodium Level 139 mmol/L Potassium Level 3.9 mmol/L Chloride Level 106 mmol/L Carbon Dioxide Level 26 mmol/L Anion Gap 7.0 mmol/L Blood Urea Nitrogen 27 mg/dl Creatinine 1.80 mg/dl Est Creatinine Clear Calc Drug Dose 45.3 ml/min Estimated GFR () 45.1 Estimated GFR (Non- 38.9 BUN/Creatinine Ratio 15.0 Random Glucose 106 mg/dl Calcium Level 7.9 mg/dl Total Creatine Kinase 79 U/L
--- NOTE | 2016-06-11 16:38 | Progress Note ---
Subjective Date of Service: Jun 11, 2016. Subjective Pt evaluation today including: conversation w/ patient, physical exam, chart review, lab review, conversation w/ customer care consultant (critical care) Pain: denies any abd pain PO Intake: good/improved Voiding: lancaster catheter in place tele - a. fib overnight, rates low 100s he reports more energy and less fatigue today no dyspnea having liquid stools - two times since the AM ambulating to commode and chair this AM Problem List Medical Problems: (1) Acute on chronic kidney failure Status: Acute (2) Atrial fibrillation with RVR Status: Acute (3) Septic shock Status: Acute Review of Systems Constitutional: + fever Respiratory: No dyspnea on exertion, No shortness of breath Cardiac: No chest pain, No orthopnea Abdomen: + diarrhea, No nausea, No pain, No vomiting Objective Vital Signs Date Time Temp Pulse Resp B/P Pulse Ox O2 Delivery O2 Flow Rate FiO2 06/11/16 16:02 110 06/11/16 15:30 Room Air 06/11/16 15:30 36.6 110 20 101/58 96 Nasal Cannula 2.0 06/11/16 11:11 Room Air 06/11/16 11:11 36.6 110 20 96/62 96 Nasal Cannula 2.0 06/11/16 11:00 105 19 89/61 98 06/11/16 10:44 105 17 94/63 97 06/11/16 10:40 106 17 86/62 97 06/11/16 10:37 105 17 91/67 96 06/11/16 10:00 105 18 101/71 77 06/11/16 09:24 37.2 107 20 99/68 96 Nasal Cannula 2.0 06/11/16 09:00 113 20 99/68 98 06/11/16 08:31 117 21 93/62 95 06/11/16 08:00 124 24 95 06/11/16 07:36 37.6 06/11/16 07:20 Room Air 06/11/16 07:20 37.9 107 20 115/71 98 Nasal Cannula 2.0 06/11/16 07:00 104 24 115/71 97 06/11/16 06:00 107 20 118/65 98 Nasal Cannula 2.0 06/11/16 04:00 Nasal Cannula 2.0 06/11/16 04:00 37.7 96 20 109/70 96 Nasal Cannula 2.0 06/11/16 02:00 104 22 113/74 97 Nasal Cannula 2.0 06/11/16 00:01 37.1 110 22 114/73 96 Nasal Cannula 2.0 06/10/16 23:59 Nasal Cannula 2.0 06/10/16 22:01 91 22 138/73 100 Nasal Cannula 2.0 06/10/16 20:03 37.6 97 24 116/68 97 Nasal Cannula 2.0 06/10/16 20:01 Nasal Cannula 2.0 06/10/16 17:58 37.4 97 22 110/61 96 Nasal Cannula 2.0 06/10/16 17:00 103 24 110/61 Physical Exam General Appearance: no apparent distress ENT: pharynx normal Neck: no JVD Respiratory/Chest: lungs clear, no respiratory distress, no accessory muscle use Cardiovascular: no murmur, + tachycardia, + irregularly irregular Abdomen: normal bowel sounds, non tender, soft, no organomegaly, + distended ( mild) Extremities: no pedal edema Neurologic/Psychiatric: alert, oriented x 3 Skin: no rash, + pallor Laboratory Results Last 24 Hours Test 06/10/16 20:34 06/11/16 06:04 Bedside Glucose 104 mg/dl White Blood Count 3.80 K/uL Red Blood Count 2.95 M/uL Hemoglobin 8.4 g/dL Hematocrit 25.0 % Mean Corpuscular Volume 84.7 fL Mean Corpuscular Hemoglobin 28.5 pg Mean Corpuscular Hemoglobin Concent 33.6 g/dl Platelet Count 168 K/uL Mean Platelet Volume 8.7 fL Neutrophils (%) (Auto) 88.5 % Lymphocytes (%) (Auto) 3.9 % Monocytes (%) (Auto) 6.3 % Eosinophils (%) (Auto) 1.3 % Basophils (%) (Auto) 0.0 % Neutrophils # (Auto) 3.36 K/uL Lymphocytes # (Auto) 0.15 K/uL Monocytes # (Auto) 0.24 K/uL Eosinophils # (Auto) 0.05 K/uL Basophils # (Auto) 0.00 K/uL RDW Standard Deviation 56.6 fL RDW Coefficient of Variation 17.9 % Immature Granulocyte % (Auto) 0.0 % Immature Granulocyte # (Auto) 0.00 K/uL Nucleated RBC Absolute Count (auto) 0.02 K/uL Nucleated Red Blood Cells % 0.6 % Anisocytosis PRESENT Sodium Level 139 mmol/L Potassium Level 3.9 mmol/L Chloride Level 106 mmol/L Carbon Dioxide Level 26 mmol/L Anion Gap 7.0 mmol/L Blood Urea Nitrogen 27 mg/dl Creatinine 1.80 mg/dl Est Creatinine Clear Calc Drug Dose 45.3 ml/min Estimated GFR () 45.1 Estimated GFR (Non- 38.9 BUN/Creatinine Ratio 15.0 Random Glucose 106 mg/dl Calcium Level 7.9 mg/dl Total Creatine Kinase 79 U/L Assessment and Plan 66yo male with: 1. septic shock 2nd to staph aureus UTI and bacteremia - shock resolved. Continue supportive care measures and IV abx therapy. Echo w/o evidence of endocarditis. ID following; recs appreciated. Daptomycin changed to rocephin 2 grams daily. Repeat blood cx's neg suggesting sterility of blood. Likely source for staph - nephrostomy tubes/ureteral stents. Will need at least 13 days of Rx. 2. acute renal failure 2nd to sepsis-associated ATN - resolved, creatinine now back at baseline. d/c IVF. 3. CKD stage 3 - per records baseline Cr is 1.9-2. see #2 above. 4. a. fib with RVR - on BB, digoxin, and amiodarone infusion. Cardiology consult appreciated. Rates reasonable at this time. Amiodarone infusion d/c by Dr. Morgan today. He is going to stop the digoxin due to CKD. Resume xarelto when there are no plans for procedures. 5. bloating/gas - check c. diff toxin. Cont lactinex TID and simethicone in the meantime. 6. prostate cancer - s/p recent nephrostomy tubes due to obstruction and ureteral stents. Defer to urology for management. 7. BPH - flomax and finasteride. [place] in place. Defer to urology when lancaster can be removed. 8. DVT proph - SCDs. Timing of restarting his xarelto? 9. FEN - stop fluids. Eating better. Repeat labs in am. PT, OT consults ok to transfer to telemetry unit Continued [facility] stay due to: multiple IV medications needed Discharge planning: uncertain
[2016-06-11] MEDS: TAMSULOSIN HCL 0.4 MG CAP PO SCH (21:09)
[2016-06-12] VITALS (8 sets, daily range): BP systolic 110–133; BP diastolic 70–89; PULSE 92–132; TEMP 36.8–37.8; O2SAT 93–97
[2016-06-12 06:06] LABS: COMPLETE YES; EOS % 3.1 %; HEMATOCRIT 28.1 % (42-52); IG% 0.5 %; LYMPH % 4.1 %; LYMPH ABS # 0.16 K/uL (1.2-3.4); MEAN CELL VOLUME 84.9 fL (80-100); MEAN CORPUSCULAR HEMOGLOBIN 28.7 pg (25-34); MEAN CORPUSCULAR HGB CONC 33.8 g/dl (32-36); MEAN PLATELET VOLUME 9.2 fL (7.4-10.4); MONO % 5.6 %; NEUT % 86.7 %; PLATELET COUNT 200 K/uL (130-400); RED BLOOD COUNT 3.31 M/uL (4.7-6.1)
[2016-06-12 06:36] LABS: BLOOD UREA NITROGEN 25 mg/dl (7-18); BUN/CREATININE RATIO 14.5 (10-20); CALCIUM 8.3 mg/dl (8.5-10.1); CARBON DIOXIDE 27 mmol/L (21-32); CHLORIDE 106 mmol/L (98-107); GLUCOSE 105 mg/dl (70-99); SODIUM 140 mmol/L (136-145)
[2016-06-12] MEDS: FINASTERIDE 5 MG TAB PO SCH (07:49)
[2016-06-12] MEDS: ASPIRIN 81 MG ECTAB PO SCH (07:49)
[2016-06-12] MEDS: POTASSIUM CHLORIDE 20 MEQ TABCR PO SCH (07:49)
[2016-06-12] MEDS: METOPROLOL SUCC 50MG EXT REL TAB PO SCH (07:50)
[2016-06-12] MEDS: PAROXETINE 20 MG TAB PO SCH (07:50)
[2016-06-12] MEDS: SIMETHICONE 80 MG CHEW PO PRN (07:51)
--- NOTE | 2016-06-12 08:36 | Progress Note ---
Subjective Date of Service: Jun 12, 2016. 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 Pt denies paint this morning. Denies n/v. Cultures growing staph. He has been started on ceftriaxone. Not sensitive. Problem List Medical Problems: (1) Acute on chronic kidney failure Status: Acute (2) Atrial fibrillation with RVR Status: Acute (3) Septic shock Status: Acute Review of Systems Constitutional: No chills, No fever Respiratory: No shortness of breath Cardiac: No chest pain Abdomen: No nausea, No pain, No vomiting Male : No hematuria Heme: No abnormal bleeding/bruising Objective Vital Signs Date Time Temp Pulse Resp B/P Pulse Ox O2 Delivery O2 Flow Rate FiO2 06/12/16 07:43 37.7 132 20 117/82 93 Room Air 06/12/16 04:00 95 Room Air 06/12/16 02:45 37.8 103 18 127/81 95 Room Air 06/11/16 23:59 97 Room Air 06/11/16 22:50 37.3 95 16 114/68 97 Room Air 06/11/16 20:00 96 Room Air 06/11/16 18:58 37.6 98 18 125/77 96 Room Air 06/11/16 16:30 Room Air 06/11/16 16:02 110 06/11/16 15:30 Room Air 06/11/16 15:30 36.6 110 20 101/58 96 Nasal Cannula 2.0 06/11/16 11:11 Room Air 06/11/16 11:11 36.6 110 20 96/62 96 Nasal Cannula 2.0 06/11/16 11:00 105 19 89/61 98 06/11/16 10:44 105 17 94/63 97 06/11/16 10:40 106 17 86/62 97 06/11/16 10:37 105 17 91/67 96 06/11/16 10:00 105 18 101/71 77 06/11/16 09:24 37.2 107 20 99/68 96 Nasal Cannula 2.0 06/11/16 09:00 113 20 99/68 98 06/11/16 08:31 117 21 93/62 95 Physical Exam General Appearance: no apparent distress Eyes: normal inspection ENT: hearing grossly normal Neck: no JVD Respiratory/Chest: no respiratory distress, no accessory muscle use Cardiovascular: no JVD Extremities: normal inspection Neurologic/Psychiatric: alert, normal mood/affect, oriented x 3 Skin: normal color Laboratory Results Last 24 Hours Test 06/12/16 05:20 06/12/16 06:36 White Blood Count 3.90 K/uL Red Blood Count 3.31 M/uL Hemoglobin 9.5 g/dL Hematocrit 28.1 % Mean Corpuscular Volume 84.9 fL Mean Corpuscular Hemoglobin 28.7 pg Mean Corpuscular Hemoglobin Concent 33.8 g/dl Platelet Count 200 K/uL Mean Platelet Volume 9.2 fL Neutrophils (%) (Auto) 86.7 % Lymphocytes (%) (Auto) 4.1 % Monocytes (%) (Auto) 5.6 % Eosinophils (%) (Auto) 3.1 % Basophils (%) (Auto) 0.0 % Neutrophils # (Auto) 3.38 K/uL Lymphocytes # (Auto) 0.16 K/uL Monocytes # (Auto) 0.22 K/uL Eosinophils # (Auto) 0.12 K/uL Basophils # (Auto) 0.00 K/uL RDW Standard Deviation 56.4 fL RDW Coefficient of Variation 18.0 % Immature Granulocyte % (Auto) 0.5 % Immature Granulocyte # (Auto) 0.02 K/uL Nucleated RBC Absolute Count (auto) 0.03 K/uL Nucleated Red Blood Cells % 0.8 % Sodium Level 140 mmol/L Potassium Level mmol/L Chloride Level 106 mmol/L Carbon Dioxide Level 27 mmol/L Anion Gap 7.0 mmol/L Blood Urea Nitrogen 25 mg/dl Creatinine 1.70 mg/dl Est Creatinine Clear Calc Drug Dose 48.6 ml/min Estimated GFR () 48.3 Estimated GFR (Non- 41.7 BUN/Creatinine Ratio 14.5 Random Glucose 105 mg/dl Calcium Level 8.3 mg/dl Assessment and Plan A/P: Prostate cancer, UTI with sepsis Cultures not sensitive to ceftriaxone. Will start the pt on Bactrim DS BID. May need to consider starting Daptomycin as well. Would recommend continuing abx x 14 days of therapy. Will leave lanc[place] catheter for now. No evidence of worsening hydro since PCN removed. No need for further surgical intervention from standpoint at this time. Will continue to follow along with primary service. Continued [facility] stay due to: multiple IV medications needed Discharge planning: uncertain
--- NOTE | 2016-06-12 08:51 | Cardiology Follow-Up ---
Subjective Date of Service: Jun 12, 2016. Pt evaluation today including: conversation w/ patient, conversation w/ family , physical exam, lab review, review of studies, review of inpatient medication list History of Present Illness This is a very pleasant 66 year old gentleman who has had his cardiac care in the [facility]. He presented here with hypotension. He is awake and alert and can provide some history, although a lot of the history is from his . He has been having difficulty with urologic issues including urine ostomy tubes and stent placement recently. From the cardiovascular standpoint he has evidently a long history of atrial fibrillation, a number of years ago he evidently had left ventricular dysfunction (although the family is not too familiar with it) and was wearing a LifeVest. Evidently his cardiac function improved and the LifeVest was discontinued and an ICD was not recommended. He is not very aware of his atrial arrhythmia, apparently it was identified when he went in for routine test. He does not seem to have palpitations or other symptoms related to it. He was having a several week history of weakness and a 24-hour history of nausea , dizziness and dysuria. He has been feeling chills and feverish for several days as well, he has had diarrhea. He has not had chest discomfort. On arrival in the emergency room he was noted to have hypotension with a pressure of 67/47, and a rapid heart rate. He has been treated with beta- blockade and intravenous amiodarone for rate control. Prior to admission he was taking digoxin 0.25 mg daily (although his level was very low) as well as metoprolol succinate 50 mg daily and Xarelto 15 mg at bedtime which he took last 06/08/2016. He appeared to be septic, an echocardiogram done in the emergency room showed reasonably good left ventricular function and it appeared that his hypotension was not cardiac, probably sepsis. He was treated with antibiotics, intravenous amiodarone was continued since he was in atrial fibrillation with a rapid heart rate. Metoprolol was held due to hypotension. He has stabilized with a good blood pressure, his heart rate remains elevated. He has no complaints and is unaware of his heart rate. He is lying in bed. Social History Smoking Status: Never Smoker History of Alcohol Use: No Review of Systems Respiratory: No shortness of breath Cardiac: No chest pain Medications Cardiovascular: Item Value Date Time Digoxin 0.25 mg 06/10/16 1600 (Lanoxin Tab) DAILY@1600/PO 06/11/16 1602 Aspirin 81 mg 06/10/16 0900 (Ecotrin Tab) DAILY/PO 06/12/16 0749 Atorvastatin 20 mg 06/10/16 0900 Calcium QAM/PO 06/11/16 0738 (Lipitor Tab) Metoprolol 50 mg 06/10/16 0900 Succinate QAM/PO 06/12/16 0750 (Toprol Xl Tab) Objective Vital Signs Past 12 Hours Date Time Temp Pulse Resp B/P Pulse Ox O2 Delivery O2 Flow Rate FiO2 06/12/16 07:43 37.7 132 20 117/82 93 Room Air 06/12/16 04:00 95 Room Air 06/12/16 02:45 37.8 103 18 127/81 95 Room Air 06/11/16 23:59 97 Room Air 06/11/16 22:50 37.3 95 16 114/68 97 Room Air Last Recorded Weight-Kilograms: 96.500 Intake & Output 8-Hour Column 06/11/16 06/12/16 06/12/16 16:00 00:00 08:00 Intake Total 1260 ml 400 ml 120 ml Output Total 1400 ml 1000 ml 1350 ml Balance -140 ml -600 ml -1230 ml 24-Hour Column 06/12/16 08:00 Intake Total 1780 ml Output Total 3750 ml Balance -1970 ml Physical Exam Constitutional: General Apperance: heathly-appearing Level of Distress: moderate distress Lungs: Respiratory effort: no dyspnea, good air movement Auscultation: breath sounds normal, no wheezing Cardiovascular: Heart Auscultation: no murmurs, no rubs, no gallops, tachycardia, irregular rate rhythm Peripheral Pulses: Bruits: none appreciated Extremities: no edema Data Laboratory Results: Last 24 Hours Test 06/12/16 05:20 06/12/16 06:36 White Blood Count 3.90 K/uL Red Blood Count 3.31 M/uL Hemoglobin 9.5 g/dL Hematocrit 28.1 % Mean Corpuscular Volume 84.9 fL Mean Corpuscular Hemoglobin 28.7 pg Mean Corpuscular Hemoglobin Concent 33.8 g/dl Platelet Count 200 K/uL Mean Platelet Volume 9.2 fL Neutrophils (%) (Auto) 86.7 % Lymphocytes (%) (Auto) 4.1 % Monocytes (%) (Auto) 5.6 % Eosinophils (%) (Auto) 3.1 % Basophils (%) (Auto) 0.0 % Neutrophils # (Auto) 3.38 K/uL Lymphocytes # (Auto) 0.16 K/uL Monocytes # (Auto) 0.22 K/uL Eosinophils # (Auto) 0.12 K/uL Basophils # (Auto) 0.00 K/uL RDW Standard Deviation 56.4 fL RDW Coefficient of Variation 18.0 % Immature Granulocyte % (Auto) 0.5 % Immature Granulocyte # (Auto) 0.02 K/uL Nucleated RBC Absolute Count (auto) 0.03 K/uL Nucleated Red Blood Cells % 0.8 % Sodium Level 140 mmol/L Potassium Level mmol/L Chloride Level 106 mmol/L Carbon Dioxide Level 27 mmol/L Anion Gap 7.0 mmol/L Blood Urea Nitrogen 25 mg/dl Creatinine 1.70 mg/dl Est Creatinine Clear Calc Drug Dose 48.6 ml/min Estimated GFR () 48.3 Estimated GFR (Non- 41.7 BUN/Creatinine Ratio 14.5 Random Glucose 105 mg/dl Calcium Level 8.3 mg/dl Telemetry reviewed: Heart rate is still quite elevated, remains in atrial fibrillation. Assessment and Plan #1. Atrial fibrillation with a rapid ventricular response: I can't tell a long he has been in the atrial fibrillation, an electrocardiogram from about one month ago showed sinus rhythm and I believe his arrhythmia is paroxysmal. He had been anticoagulated with Xarelto but that is on hold. Certainly he would be better off hemodynamically in sinus rhythm by don't think we need to consider cardioversion now. I think he needs to be on digoxin for his heart rate, however with his renal insufficiency his current dose may be too high. I would watch his level closely. I think we will should restart anticoagulation as long as he is not going to undergo any procedures. #2. Cardiomyopathy: Based on his history it sounds as though he had a cardiomyopathy, but it appears to have recovered and his echo shows good left ventricular function. I don't think we have to do anything specifically regarding that. I don't know the cause of his cardiomyopathy, it is possible it was atrial fibrillation with rapid heart rates in the past. He does not have evidence or a history of ischemic heart disease. #3. Hypotension: The cause of his hypotension is most likely sepsis, it does not appear to be cardiogenic. He has recovered significantly. Thank you for allowing me to participate in his care.
[2016-06-12] MEDS ORDERED: METOPROLOL SUCC 50MG EXT REL TAB PO ONE (09:30)
[2016-06-12] MEDS ORDERED: SULFAMETHOXAZOLE/TRIMETHOPRIM DS 800/160MG TAB PO SCH (09:30)
[2016-06-12] MEDS: CEFTRIAXONE SOD INJ 2,000 MG in DEXTROSE 5% 50ML 50 ML IV SCH (10:04)
[2016-06-12] MEDS: ATORVASTATIN 20 MG TAB PO SCH (10:05)
--- NOTE | 2016-06-12 10:25 | Progress Note ---
Subjective Date of Service: Jun 12, 2016. Subjective Pt evaluation today including: conversation w/ patient, conversation w/ family , physical exam, chart review, lab review pt feeling better, oob to chair. Still with fevers but overall states he is better. abd pain resolved. tolerating abx, eating well. lancaster remains in place. He is to speak with urology today regarding [place]/stents. Initial blood cultures and urine culture with MSSA, transitioned to ctx yesterday. previous urine culture with mssa as well. also placed on bactrim today. creat better but remains elevated. tmax 37.8. c diff negative, currently denies diarrhea. All remaining ros reviewed and are negative. repeat blood cultures are negative. echo negative. Problem List Medical Problems: (1) Acute on chronic kidney failure Status: Acute (2) Atrial fibrillation with RVR Status: Acute (3) Septic shock Status: Acute Objective Vital Signs Date Time Temp Pulse Resp B/P Pulse Ox O2 Delivery O2 Flow Rate FiO2 06/12/16 07:43 37.7 132 20 117/82 93 Room Air 06/12/16 04:00 95 Room Air 06/12/16 02:45 37.8 103 18 127/81 95 Room Air 06/11/16 23:59 97 Room Air 06/11/16 22:50 37.3 95 16 114/68 97 Room Air 06/11/16 20:00 96 Room Air 06/11/16 18:58 37.6 98 18 125/77 96 Room Air 06/11/16 16:30 Room Air 06/11/16 16:02 110 06/11/16 15:30 Room Air 06/11/16 15:30 36.6 110 20 101/58 96 Nasal Cannula 2.0 06/11/16 11:11 Room Air 06/11/16 11:11 36.6 110 20 96/62 96 Nasal Cannula 2.0 06/11/16 11:00 105 19 89/61 98 06/11/16 10:44 105 17 94/63 97 06/11/16 10:40 106 17 86/62 97 06/11/16 10:37 105 17 91/67 96 Physical Exam General Appearance: WD/WN Eyes: normal inspection Neck: supple Respiratory/Chest: lungs clear, normal breath sounds, no respiratory distress Cardiovascular: regular rate, rhythm, no edema Abdomen: non tender, soft Extremities: non-tender, normal inspection, no pedal edema Neurologic/Psychiatric: alert, oriented x 3 Skin: normal color Laboratory Results Item Value Date Time Blood Culture - Final Complete 06/09/16 1315 Blood Staphylococcus Aureus Urine Culture - Final Complete 06/09/16 1444 Urine , Clean Catch Staphylococcus Aureus Blood Culture - Preliminary Resulted 06/10/16 0950 Blood NO GROWTH TO DATE. C.difficile Toxin B Gene (PCR) - Final Complete 06/11/16 1801 Stool No C. difficile toxin B gene detected Last 24 Hours Test 06/12/16 05:20 06/12/16 08:50 White Blood Count 3.90 K/uL Red Blood Count 3.31 M/uL Hemoglobin 9.5 g/dL Hematocrit 28.1 % Mean Corpuscular Volume 84.9 fL Mean Corpuscular Hemoglobin 28.7 pg Mean Corpuscular Hemoglobin Concent 33.8 g/dl Platelet Count 200 K/uL Mean Platelet Volume 9.2 fL Neutrophils (%) (Auto) 86.7 % Lymphocytes (%) (Auto) 4.1 % Monocytes (%) (Auto) 5.6 % Eosinophils (%) (Auto) 3.1 % Basophils (%) (Auto) 0.0 % Neutrophils # (Auto) 3.38 K/uL Lymphocytes # (Auto) 0.16 K/uL Monocytes # (Auto) 0.22 K/uL Eosinophils # (Auto) 0.12 K/uL Basophils # (Auto) 0.00 K/uL RDW Standard Deviation 56.4 fL RDW Coefficient of Variation 18.0 % Immature Granulocyte % (Auto) 0.5 % Immature Granulocyte # (Auto) 0.02 K/uL Nucleated RBC Absolute Count (auto) 0.03 K/uL Nucleated Red Blood Cells % 0.8 % Sodium Level 140 mmol/L Potassium Level mmol/L 3.8 mmol/L Chloride Level 106 mmol/L Carbon Dioxide Level 27 mmol/L Anion Gap 7.0 mmol/L Blood Urea Nitrogen 25 mg/dl Creatinine 1.70 mg/dl Est Creatinine Clear Calc Drug Dose 48.6 ml/min Estimated GFR () 48.3 Estimated GFR (Non- 41.7 BUN/Creatinine Ratio 14.5 Random Glucose 105 mg/dl Calcium Level 8.3 mg/dl Assessment and Plan (1) MSSA (methicillin susceptible Staphylococcus aureus) septicemia Assessment & Plan: continue ctx, will stop bactrim, especially with elevated creat. repeat cultures negative, echo negative. will need min 14 days from first negative culture, however, course may be extended, await plan for [place]/ stent. (2) UTI (urinary tract infection) due to urinary indwelling catheter (3) Fever Continued [facility] stay due to: multiple IV medications needed Discharge planning: uncertain
[2016-06-12] MEDS: DIGOXIN 0.25 MG TAB PO SCH (16:09)
--- NOTE | 2016-06-12 17:56 | Hospitalist Progress Note ---
Hospitalist Progress Note Date of Service Jun 12, 2016. Subjective Pt evaluation today including: conversation w/ patient, conversation w/ family , physical exam, chart review, lab review Pain: 0 patient with no complaints Objective Vital Signs Date Time Temp Pulse Resp B/P Pulse Ox O2 Delivery O2 Flow Rate FiO2 06/12/16 16:09 132 06/12/16 16:00 Room Air 06/12/16 15:15 36.8 92 18 110/70 96 Room Air 06/12/16 13:08 94 06/12/16 12:00 Room Air 06/12/16 11:57 37.7 107 20 122/89 96 06/12/16 08:00 Room Air 06/12/16 07:43 37.7 132 20 117/82 93 Room Air 06/12/16 04:00 95 Room Air 06/12/16 02:45 37.8 103 18 127/81 95 Room Air 06/11/16 23:59 97 Room Air 06/11/16 22:50 37.3 95 16 114/68 97 Room Air 06/11/16 20:00 96 Room Air 06/11/16 18:58 37.6 98 18 125/77 96 Room Air Physical Exam General Appearance: no apparent distress Eyes: normal inspection ENT: hearing grossly normal Neck: trachea midline Respiratory/Chest: lungs clear Cardiovascular: + irregularly irregular Abdomen: normal bowel sounds Extremities: normal range of motion Laboratory Results Last 24 Hours Test 06/12/16 05:20 06/12/16 08:50 White Blood Count 3.90 K/uL Red Blood Count 3.31 M/uL Hemoglobin 9.5 g/dL Hematocrit 28.1 % Mean Corpuscular Volume 84.9 fL Mean Corpuscular Hemoglobin 28.7 pg Mean Corpuscular Hemoglobin Concent 33.8 g/dl Platelet Count 200 K/uL Mean Platelet Volume 9.2 fL Neutrophils (%) (Auto) 86.7 % Lymphocytes (%) (Auto) 4.1 % Monocytes (%) (Auto) 5.6 % Eosinophils (%) (Auto) 3.1 % Basophils (%) (Auto) 0.0 % Neutrophils # (Auto) 3.38 K/uL Lymphocytes # (Auto) 0.16 K/uL Monocytes # (Auto) 0.22 K/uL Eosinophils # (Auto) 0.12 K/uL Basophils # (Auto) 0.00 K/uL RDW Standard Deviation 56.4 fL RDW Coefficient of Variation 18.0 % Immature Granulocyte % (Auto) 0.5 % Immature Granulocyte # (Auto) 0.02 K/uL Nucleated RBC Absolute Count (auto) 0.03 K/uL Nucleated Red Blood Cells % 0.8 % Sodium Level 140 mmol/L Potassium Level mmol/L 3.8 mmol/L Chloride Level 106 mmol/L Carbon Dioxide Level 27 mmol/L Anion Gap 7.0 mmol/L Blood Urea Nitrogen 25 mg/dl Creatinine 1.70 mg/dl Est Creatinine Clear Calc Drug Dose 48.6 ml/min Estimated GFR () 48.3 Estimated GFR (Non- 41.7 BUN/Creatinine Ratio 14.5 Random Glucose 105 mg/dl Calcium Level 8.3 mg/dl Assessment and Plan (1) MSSA (methicillin susceptible Staphylococcus aureus) septicemia Assessment & Plan: continue rocephin sepsis resolved (2) UTI (urinary tract infection) due to urinary indwelling catheter (3) Atrial fibrillation with RVR Assessment & Plan: RVR resolved (4) Advance care planning Assessment & Plan: discussed in detail need for will, living will, and poa.
[2016-06-12] MEDS: TAMSULOSIN HCL 0.4 MG CAP PO SCH (20:01)
[2016-06-13 03:40] VITALS: BP 106/67; PULSE 105; TEMP 37.7; O2SAT 94
[2016-06-13 05:55] LABS: EOS % 3.7 %; HEMATOCRIT 25.3 % (42-52); IG% 0.7 %; LYMPH % 5.9 %; LYMPH ABS # 0.24 K/uL (1.2-3.4); MEAN CELL VOLUME 84.1 fL (80-100); MEAN CORPUSCULAR HEMOGLOBIN 28.2 pg (25-34); MEAN CORPUSCULAR HGB CONC 33.6 g/dl (32-36); MEAN PLATELET VOLUME 8.8 fL (7.4-10.4); MONO % 8.8 %; NEUT % 80.9 %; PLATELET COUNT 211 K/uL (130-400); RED BLOOD COUNT 3.01 M/uL (4.7-6.1); WHITE BLOOD COUNT 4.08 K/uL (4.8-10.8)
[2016-06-13 06:17] LABS: ANISOCYTOSIS PRESENT; COMPLETE YES; POLYCHROMASIA 1+
[2016-06-13 06:24] LABS: BUN/CREATININE RATIO 10.3 (10-20); CALCIUM 8.1 mg/dl (8.5-10.1); CREATININE 1.9 mg/dl (0.60-1.40); POTASSIUM 3.9 mmol/L (3.5-5.1)
[2016-06-13 07:50] VITALS: BP 116/80; PULSE 88; TEMP 36.8; O2SAT 96
--- NOTE | 2016-06-13 09:09 | Progress Note ---
Subjective Date of Service: Jun 13, 2016. Subjective Pt evaluation today including: conversation w/ patient, chart review, lab review 66 yo male with prostate cancer and sepsis on admission. Pt denies pain this morning. TOV yesterday. Reports he is voiding well this morning. Denies pain. Bactrim DS has been stopped. IV abx per ID. Problem List Medical Problems: (1) Acute on chronic kidney failure Status: Acute (2) Atrial fibrillation with RVR Status: Acute (3) Septic shock Status: Acute Review of Systems Constitutional: No chills, No fever Respiratory: No shortness of breath Cardiac: No chest pain Abdomen: No nausea, No pain, No vomiting Male : No dysuria, No hematuria Heme: No abnormal bleeding/bruising Objective Vital Signs Date Time Temp Pulse Resp B/P Pulse Ox O2 Delivery O2 Flow Rate FiO2 06/13/16 08:00 Room Air 06/13/16 07:50 36.8 88 18 116/80 96 06/13/16 04:00 Room Air 06/13/16 03:40 37.7 105 16 106/67 94 Room Air 06/13/16 00:01 Room Air 06/12/16 22:50 37.4 102 20 133/89 97 Room Air 06/12/16 19:06 Room Air 06/12/16 19:05 37.6 100 18 114/75 95 Room Air 06/12/16 16:09 132 06/12/16 16:00 Room Air 06/12/16 15:15 36.8 92 18 110/70 96 Room Air 06/12/16 13:08 94 06/12/16 12:00 Room Air 06/12/16 11:57 37.7 107 20 122/89 96 Physical Exam General Appearance: no apparent distress Eyes: normal inspection ENT: hearing grossly normal Neck: no JVD Respiratory/Chest: no respiratory distress, no accessory muscle use Cardiovascular: no JVD Extremities: normal inspection Neurologic/Psychiatric: alert, normal mood/affect, oriented x 3 Skin: normal color Laboratory Results Last 24 Hours Test 06/13/16 05:22 White Blood Count 4.08 K/uL Red Blood Count 3.01 M/uL Hemoglobin 8.5 g/dL Hematocrit 25.3 % Mean Corpuscular Volume 84.1 fL Mean Corpuscular Hemoglobin 28.2 pg Mean Corpuscular Hemoglobin Concent 33.6 g/dl Platelet Count 211 K/uL Mean Platelet Volume 8.8 fL Neutrophils (%) (Auto) 80.9 % Lymphocytes (%) (Auto) 5.9 % Monocytes (%) (Auto) 8.8 % Eosinophils (%) (Auto) 3.7 % Basophils (%) (Auto) 0.0 % Neutrophils # (Auto) 3.30 K/uL Lymphocytes # (Auto) 0.24 K/uL Monocytes # (Auto) 0.36 K/uL Eosinophils # (Auto) 0.15 K/uL Basophils # (Auto) 0.00 K/uL RDW Standard Deviation 56.4 fL RDW Coefficient of Variation 18.1 % Immature Granulocyte % (Auto) 0.7 % Immature Granulocyte # (Auto) 0.03 K/uL Polychromasia 1+ Anisocytosis PRESENT Sodium Level 140 mmol/L Potassium Level 3.9 mmol/L Chloride Level 108 mmol/L Carbon Dioxide Level 25 mmol/L Anion Gap 7.0 mmol/L Blood Urea Nitrogen 20 mg/dl Creatinine 1.90 mg/dl Est Creatinine Clear Calc Drug Dose 43.1 ml/min Estimated GFR () 42.2 Estimated GFR (Non- 36.4 BUN/Creatinine Ratio 10.3 Random Glucose 98 mg/dl Calcium Level 8.1 mg/dl Digoxin Level 1.2 ng/ml Assessment and Plan A/P: Prostate cancer, UTI with sepsis Continue IV abx per ID. Agree with at least 14 days of therapy. Pt voiding without issue. Will leave [place] catheter out for now. No evidence of worsening hydro since PCN removed. No need for further surgical intervention from standpoint at this time. Continue with outpatient bilateral ureteral stent changes per previously planned. No further management at this time. Pt OK for d/c home from perspective when OK with primary service. Outpatient abx per ID recommendations. Will plan for outpatient with Dr. Almeida in 2-3 weeks. Will arrange f/u. Recall PRN issues. The pt was seen and assessed in conjunction with Dr. Almeida this morning. Continued [facility] stay due to: multiple IV medications needed Discharge planning: uncertain
[2016-06-13] MEDS: ASPIRIN 81 MG ECTAB PO SCH (09:24)
[2016-06-13] MEDS: POTASSIUM CHLORIDE 20 MEQ TABCR PO SCH (09:25)
[2016-06-13] MEDS: ATORVASTATIN 20 MG TAB PO SCH (09:25)
[2016-06-13] MEDS: PAROXETINE 20 MG TAB PO SCH (09:29)
[2016-06-13] MEDS: FINASTERIDE 5 MG TAB PO SCH (09:29)
[2016-06-13] MEDS: METOPROLOL SUCC 50MG EXT REL TAB PO SCH (09:30)
[2016-06-13] MEDS: CEFTRIAXONE SOD INJ 2,000 MG in DEXTROSE 5% 50ML 50 ML IV SCH (09:31)
--- NOTE | 2016-06-13 09:35 | Cardiology Follow-Up ---
Subjective Date of Service: Jun 13, 2016. Pt evaluation today including: conversation w/ patient, physical exam, lab review, review of studies, review of inpatient medication list History of Present Illness This is a very pleasant 66 year old gentleman who has had his cardiac care in the [facility]. He presented here with hypotension. He is awake and alert and can provide some history, although a lot of the history is from his . He has been having difficulty with urologic issues including urine ostomy tubes and stent placement recently. From the cardiovascular standpoint he has evidently a long history of atrial fibrillation, a number of years ago he evidently had left ventricular dysfunction (although the family is not too familiar with it) and was wearing a LifeVest. Evidently his cardiac function improved and the LifeVest was discontinued and an ICD was not recommended. He is not very aware of his atrial arrhythmia, apparently it was identified when he went in for routine test. He does not seem to have palpitations or other symptoms related to it. He was having a several week history of weakness and a 24-hour history of nausea , dizziness and dysuria. He has been feeling chills and feverish for several days as well, he has had diarrhea. He has not had chest discomfort. On arrival in the emergency room he was noted to have hypotension with a pressure of 67/47, and a rapid heart rate. He has been treated with beta- blockade and intravenous amiodarone for rate control. Prior to admission he was taking digoxin 0.25 mg daily (although his level was very low) as well as metoprolol succinate 50 mg daily and Xarelto 15 mg at bedtime which he took last 06/08/2016. He appeared to be septic, an echocardiogram done in the emergency room showed reasonably good left ventricular function and it appeared that his hypotension was not cardiac, probably sepsis. He was treated with antibiotics, intravenous amiodarone was continued since he was in atrial fibrillation with a rapid heart rate. Metoprolol was held due to hypotension. He has stabilized with a good blood pressure, his heart rate remains elevated. He has no complaints and is unaware of his heart rate. He is lying in bed. With increased medications his heart rate is still not under good control. Social History Smoking Status: Never Smoker History of Alcohol Use: No Review of Systems Respiratory: No shortness of breath Cardiac: No chest pain Medications Cardiovascular: Item Value Date Time Metoprolol 100 mg 06/13/16 0900 Succinate QAM/PO (Toprol Xl Tab) Digoxin 0.25 mg 06/10/16 1600 (Lanoxin Tab) DAILY@1600/PO 06/12/16 1609 Aspirin 81 mg 06/10/16 0900 (Ecotrin Tab) DAILY/PO 06/12/16 0749 Atorvastatin 20 mg 06/10/16 0900 Calcium QAM/PO 06/12/16 1005 (Lipitor Tab) Objective Vital Signs Past 12 Hours Date Time Temp Pulse Resp B/P Pulse Ox O2 Delivery O2 Flow Rate FiO2 06/13/16 08:00 Room Air 06/13/16 07:50 36.8 88 18 116/80 96 06/13/16 04:00 Room Air 06/13/16 03:40 37.7 105 16 106/67 94 Room Air 06/13/16 00:01 Room Air 06/12/16 22:50 37.4 102 20 133/89 97 Room Air Last Recorded Weight-Kilograms: 94.700 Intake & Output 8-Hour Column 06/12/16 06/13/16 06/13/16 16:00 00:00 08:00 Intake Total 300 ml 395 ml 250 ml Output Total 1250 ml 975 ml 575 ml Balance -950 ml -580 ml -325 ml 24-Hour Column 06/13/16 08:00 Intake Total 945 ml Output Total 2800 ml Balance -1855 ml Physical Exam Constitutional: General Apperance: heathly-appearing Level of Distress: moderate distress Lungs: Respiratory effort: no dyspnea, good air movement Auscultation: breath sounds normal, no wheezing Cardiovascular: Heart Auscultation: no murmurs, no rubs, no gallops, tachycardia, irregular rate rhythm Peripheral Pulses: Bruits: none appreciated Extremities: no edema Data Laboratory Results: Last 24 Hours Test 06/13/16 05:22 White Blood Count 4.08 K/uL Red Blood Count 3.01 M/uL Hemoglobin 8.5 g/dL Hematocrit 25.3 % Mean Corpuscular Volume 84.1 fL Mean Corpuscular Hemoglobin 28.2 pg Mean Corpuscular Hemoglobin Concent 33.6 g/dl Platelet Count 211 K/uL Mean Platelet Volume 8.8 fL Neutrophils (%) (Auto) 80.9 % Lymphocytes (%) (Auto) 5.9 % Monocytes (%) (Auto) 8.8 % Eosinophils (%) (Auto) 3.7 % Basophils (%) (Auto) 0.0 % Neutrophils # (Auto) 3.30 K/uL Lymphocytes # (Auto) 0.24 K/uL Monocytes # (Auto) 0.36 K/uL Eosinophils # (Auto) 0.15 K/uL Basophils # (Auto) 0.00 K/uL RDW Standard Deviation 56.4 fL RDW Coefficient of Variation 18.1 % Immature Granulocyte % (Auto) 0.7 % Immature Granulocyte # (Auto) 0.03 K/uL Polychromasia 1+ Anisocytosis PRESENT Sodium Level 140 mmol/L Potassium Level 3.9 mmol/L Chloride Level 108 mmol/L Carbon Dioxide Level 25 mmol/L Anion Gap 7.0 mmol/L Blood Urea Nitrogen 20 mg/dl Creatinine 1.90 mg/dl Est Creatinine Clear Calc Drug Dose 43.1 ml/min Estimated GFR () 42.2 Estimated GFR (Non- 36.4 BUN/Creatinine Ratio 10.3 Random Glucose 98 mg/dl Calcium Level 8.1 mg/dl Digoxin Level 1.2 ng/ml Telemetry reviewed: Atrial fibrillation with an overall rapid heart rate. Assessment and Plan #1. Atrial fibrillation with a rapid ventricular response: I can't tell a long he has been in the atrial fibrillation, an electrocardiogram from about one month ago showed sinus rhythm and I believe his arrhythmia is paroxysmal. He had been anticoagulated with Xarelto but that is on hold. Certainly he would be better off hemodynamically in sinus rhythm by don't think we need to consider cardioversion now. His heart rate remains too high, I'm going to increase his metoprolol succinate. I think he needs to be on digoxin for his heart rate, however with his renal insufficiency his current dose may be too high over the long run, his level today was acceptable. I would watch his level closely, he should've another level drawn in several days if he is going to go home on this dose. I think we will should restart anticoagulation as long as he is not going to undergo any procedures. If he remains in atrial fibrillation we should consider cardioversion, he has been off of anticoagulation long enough that we would have to wait 3-4 weeks. #2. Cardiomyopathy: Based on his history it sounds as though he had a cardiomyopathy, but it appears to have recovered and his echo showed good left ventricular function. I don't think we have to do anything specifically regarding that. I don't know the cause of his cardiomyopathy, it is possible it was atrial fibrillation with rapid heart rates in the past. He does not have evidence or a history of ischemic heart disease. If he goes home in the next few days we will arrange follow-up in the office. Thank you for allowing me to participate in his care.
[2016-06-13] MEDS ORDERED: METOPROLOL SUCC 50MG EXT REL TAB PO ONE (10:00)
--- NOTE | 2016-06-13 10:38 | Progress Note ---
Subjective Date of Service: Jun 13, 2016. Subjective pt tolerating abx, still with intermittent fevers. repeat cultures negative. echo negative. stent remains in place. wbc 4 this am. creat slight increase to 1.9. no overnight events. Problem List Medical Problems: (1) Acute on chronic kidney failure Status: Acute (2) Atrial fibrillation with RVR Status: Acute (3) Septic shock Status: Acute Objective Vital Signs Date Time Temp Pulse Resp B/P Pulse Ox O2 Delivery O2 Flow Rate FiO2 06/13/16 08:00 Room Air 06/13/16 07:50 36.8 88 18 116/80 96 06/13/16 04:00 Room Air 06/13/16 03:40 37.7 105 16 106/67 94 Room Air 06/13/16 00:01 Room Air 06/12/16 22:50 37.4 102 20 133/89 97 Room Air 06/12/16 19:06 Room Air 06/12/16 19:05 37.6 100 18 114/75 95 Room Air 06/12/16 16:09 132 06/12/16 16:00 Room Air 06/12/16 15:15 36.8 92 18 110/70 96 Room Air 06/12/16 13:08 94 06/12/16 12:00 Room Air 06/12/16 11:57 37.7 107 20 122/89 96 Laboratory Results Item Value Date Time Blood Culture - Final Complete 06/09/16 1315 Blood Staphylococcus Aureus Urine Culture - Final Complete 06/09/16 1444 Urine , Clean Catch Staphylococcus Aureus Blood Culture - Preliminary Resulted 06/10/16 0950 Blood NO GROWTH TO DATE. C.difficile Toxin B Gene (PCR) - Final Complete 06/11/16 1801 Stool No C. difficile toxin B gene detected Last 24 Hours Test 06/13/16 05:22 White Blood Count 4.08 K/uL Red Blood Count 3.01 M/uL Hemoglobin 8.5 g/dL Hematocrit 25.3 % Mean Corpuscular Volume 84.1 fL Mean Corpuscular Hemoglobin 28.2 pg Mean Corpuscular Hemoglobin Concent 33.6 g/dl Platelet Count 211 K/uL Mean Platelet Volume 8.8 fL Neutrophils (%) (Auto) 80.9 % Lymphocytes (%) (Auto) 5.9 % Monocytes (%) (Auto) 8.8 % Eosinophils (%) (Auto) 3.7 % Basophils (%) (Auto) 0.0 % Neutrophils # (Auto) 3.30 K/uL Lymphocytes # (Auto) 0.24 K/uL Monocytes # (Auto) 0.36 K/uL Eosinophils # (Auto) 0.15 K/uL Basophils # (Auto) 0.00 K/uL RDW Standard Deviation 56.4 fL RDW Coefficient of Variation 18.1 % Immature Granulocyte % (Auto) 0.7 % Immature Granulocyte # (Auto) 0.03 K/uL Polychromasia 1+ Anisocytosis PRESENT Sodium Level 140 mmol/L Potassium Level 3.9 mmol/L Chloride Level 108 mmol/L Carbon Dioxide Level 25 mmol/L Anion Gap 7.0 mmol/L Blood Urea Nitrogen 20 mg/dl Creatinine 1.90 mg/dl Est Creatinine Clear Calc Drug Dose 43.1 ml/min Estimated GFR () 42.2 Estimated GFR (Non- 36.4 BUN/Creatinine Ratio 10.3 Random Glucose 98 mg/dl Calcium Level 8.1 mg/dl Digoxin Level 1.2 ng/ml Assessment and Plan (1) MSSA (methicillin susceptible Staphylococcus aureus) septicemia Assessment & Plan: 06/10 cultures ngtd. on ctx. Isolate is cephalosporin sensitive, no need for IV Dapto. Placed on rocephin as this is once daily therapy, ease of use upon d/c from hospital, compared to ancef which is [id number]. He continues to have intermittent fevers. will need at least 14 days from first negative culture, echo negative, however, may need to extend therapy , will stent remain in place? (2) UTI (urinary tract infection) due to urinary indwelling catheter (3) Fever Continued [facility] stay due to: multiple IV medications needed Discharge planning: uncertain
[2016-06-13 12:33] VITALS: BP 98/59; PULSE 94; TEMP 36.7; O2SAT 97
[2016-06-13 13:52] VITALS: BP 110/66; PULSE 102; O2SAT 96
[2016-06-13 14:49] VITALS: BP 101/69; PULSE 105; TEMP 37.2; O2SAT 99
[2016-06-13] MEDS: DIGOXIN 0.25 MG TAB PO SCH (17:02)
--- NOTE | 2016-06-13 19:14 | Hospitalist Progress Note ---
Hospitalist Progress Note Date of Service Jun 13, 2016. Subjective Pt evaluation today including: conversation w/ patient, conversation w/ family patient with no complaint no chest pain no shortness of breath All Other Systems: Reviewed and Negative Objective Vital Signs Date Time Temp Pulse Resp B/P Pulse Ox O2 Delivery O2 Flow Rate FiO2 06/13/16 17:02 102 06/13/16 16:00 Room Air 06/13/16 14:49 37.2 105 18 101/69 99 Room Air 06/13/16 13:52 102 96 06/13/16 12:33 36.7 94 18 98/59 97 Room Air 06/13/16 12:00 Room Air 06/13/16 08:00 Room Air 06/13/16 07:50 36.8 88 18 116/80 96 06/13/16 04:00 Room Air 06/13/16 03:40 37.7 105 16 106/67 94 Room Air 06/13/16 00:01 Room Air 06/12/16 22:50 37.4 102 20 133/89 97 Room Air Physical Exam General Appearance: no apparent distress ENT: hearing grossly normal Neck: trachea midline Respiratory/Chest: lungs clear Cardiovascular: regular rate, rhythm Abdomen: normal bowel sounds, non tender, soft Neurologic/Psychiatric: alert, normal mood/affect Skin: normal color Laboratory Results Last 24 Hours Test 06/13/16 05:22 White Blood Count 4.08 K/uL Red Blood Count 3.01 M/uL Hemoglobin 8.5 g/dL Hematocrit 25.3 % Mean Corpuscular Volume 84.1 fL Mean Corpuscular Hemoglobin 28.2 pg Mean Corpuscular Hemoglobin Concent 33.6 g/dl Platelet Count 211 K/uL Mean Platelet Volume 8.8 fL Neutrophils (%) (Auto) 80.9 % Lymphocytes (%) (Auto) 5.9 % Monocytes (%) (Auto) 8.8 % Eosinophils (%) (Auto) 3.7 % Basophils (%) (Auto) 0.0 % Neutrophils # (Auto) 3.30 K/uL Lymphocytes # (Auto) 0.24 K/uL Monocytes # (Auto) 0.36 K/uL Eosinophils # (Auto) 0.15 K/uL Basophils # (Auto) 0.00 K/uL RDW Standard Deviation 56.4 fL RDW Coefficient of Variation 18.1 % Immature Granulocyte % (Auto) 0.7 % Immature Granulocyte # (Auto) 0.03 K/uL Polychromasia 1+ Anisocytosis PRESENT Sodium Level 140 mmol/L Potassium Level 3.9 mmol/L Chloride Level 108 mmol/L Carbon Dioxide Level 25 mmol/L Anion Gap 7.0 mmol/L Blood Urea Nitrogen 20 mg/dl Creatinine 1.90 mg/dl Est Creatinine Clear Calc Drug Dose 43.1 ml/min Estimated GFR () 42.2 Estimated GFR (Non- 36.4 BUN/Creatinine Ratio 10.3 Random Glucose 98 mg/dl Calcium Level 8.1 mg/dl Digoxin Level 1.2 ng/ml Assessment and Plan (1) MSSA (methicillin susceptible Staphylococcus aureus) septicemia Assessment & Plan: continue rocephin Echo is unremarkable (2) UTI (urinary tract infection) due to urinary indwelling catheter Assessment & Plan: continue rocephin (3) Atrial fibrillation with RVR Assessment & Plan: beta blockade being used for rate control may need additional therapy Dr. Morgan help appreciated, considering cardioversion if needed as outpatient (4) Advance care planning
[2016-06-13 20:07] VITALS: BP 122/74; PULSE 96; TEMP 37.2; O2SAT 95
[2016-06-13] MEDS: TAMSULOSIN HCL 0.4 MG CAP PO SCH (20:17)
[2016-06-14 00:11] VITALS: BP 120/84; PULSE 105; TEMP 37.3; O2SAT 97
[2016-06-14 03:20] VITALS: BP 125/81; PULSE 98; TEMP 36.4; O2SAT 96
[2016-06-14 07:05] LABS: BASO % 0.2 %; BASO ABS # 0.01 K/uL (0-0.2); EOS % 3.6 %; HEMATOCRIT 26.9 % (42-52); IG% 0.9 %; LYMPH % 8.4 %; LYMPH ABS # 0.39 K/uL (1.2-3.4); MEAN CELL VOLUME 86.5 fL (80-100); MEAN CORPUSCULAR HEMOGLOBIN 28.3 pg (25-34); MEAN CORPUSCULAR HGB CONC 32.7 g/dl (32-36); MEAN PLATELET VOLUME 8.7 fL (7.4-10.4); MONO % 7.3 %; NEUT % 79.6 %; PLATELET COUNT 247 K/uL (130-400); RED BLOOD COUNT 3.11 M/uL (4.7-6.1); WHITE BLOOD COUNT 4.67 K/uL (4.8-10.8)
[2016-06-14 07:29] LABS: ANISOCYTOSIS PRESENT; COMPLETE YES; LARGE PLATELETS 1+; TOXIC GRANULATION 1+
[2016-06-14 07:38] LABS: BUN/CREATININE RATIO 12.3 (10-20); CALCIUM 8.6 mg/dl (8.5-10.1); CREATININE 1.8 mg/dl (0.60-1.40)
[2016-06-14] MEDS: METOPROLOL SUCC 50MG EXT REL TAB PO SCH (07:58)
[2016-06-14] MEDS: ATORVASTATIN 20 MG TAB PO SCH (07:58)
[2016-06-14] MEDS: ASPIRIN 81 MG ECTAB PO SCH (07:58)
[2016-06-14] MEDS: PAROXETINE 20 MG TAB PO SCH (07:58)
[2016-06-14] MEDS: POTASSIUM CHLORIDE 20 MEQ TABCR PO SCH (07:59)
[2016-06-14] MEDS: FINASTERIDE 5 MG TAB PO SCH (08:00)
[2016-06-14 08:17] VITALS: BP 125/60; PULSE 97; TEMP 37.5; O2SAT 96
--- NOTE | 2016-06-14 08:28 | Hospitalist Progress Note ---
Hospitalist Progress Note Date of Service Jun 14, 2016. Subjective Pt evaluation today including: conversation w/ patient Voiding: no voiding problems Patient with no complaints no chest pain no shortness of breath All Other Systems: Reviewed and Negative Objective Vital Signs Date Time Temp Pulse Resp B/P Pulse Ox O2 Delivery O2 Flow Rate FiO2 06/14/16 04:00 Room Air 06/14/16 03:20 36.4 98 17 125/81 96 Room Air 06/14/16 00:15 Room Air 06/14/16 00:11 37.3 105 18 120/84 97 Room Air 06/13/16 20:07 37.2 96 16 122/74 95 Room Air 06/13/16 19:28 Room Air 06/13/16 17:02 102 06/13/16 16:00 Room Air 06/13/16 14:49 37.2 105 18 101/69 99 Room Air 06/13/16 13:52 102 96 06/13/16 12:33 36.7 94 18 98/59 97 Room Air 06/13/16 12:00 Room Air 06/13/16 08:00 Room Air 06/13/16 07:50 36.8 88 18 116/80 96 Physical Exam General Appearance: no apparent distress Eyes: normal inspection ENT: hearing grossly normal Respiratory/Chest: lungs clear Cardiovascular: regular rate, rhythm Abdomen: normal bowel sounds Extremities: normal range of motion Skin: normal color, warm/dry Laboratory Results Last 24 Hours Test 06/14/16 05:29 White Blood Count 4.67 K/uL Red Blood Count 3.11 M/uL Hemoglobin 8.8 g/dL Hematocrit 26.9 % Mean Corpuscular Volume 86.5 fL Mean Corpuscular Hemoglobin 28.3 pg Mean Corpuscular Hemoglobin Concent 32.7 g/dl Platelet Count 247 K/uL Mean Platelet Volume 8.7 fL Neutrophils (%) (Auto) 79.6 % Lymphocytes (%) (Auto) 8.4 % Monocytes (%) (Auto) 7.3 % Eosinophils (%) (Auto) 3.6 % Basophils (%) (Auto) 0.2 % Neutrophils # (Auto) 3.72 K/uL Lymphocytes # (Auto) 0.39 K/uL Monocytes # (Auto) 0.34 K/uL Eosinophils # (Auto) 0.17 K/uL Basophils # (Auto) 0.01 K/uL RDW Standard Deviation 58.9 fL RDW Coefficient of Variation 18.5 % Immature Granulocyte % (Auto) 0.9 % Immature Granulocyte # (Auto) 0.04 K/uL Nucleated RBC Absolute Count (auto) 0.02 K/uL Nucleated Red Blood Cells % 0.4 % Toxic Granulation 1+ Large Platelets 1+ Anisocytosis PRESENT Sodium Level 140 mmol/L Potassium Level 4.0 mmol/L Chloride Level 107 mmol/L Carbon Dioxide Level 24 mmol/L Anion Gap 9.0 mmol/L Blood Urea Nitrogen 22 mg/dl Creatinine 1.80 mg/dl Est Creatinine Clear Calc Drug Dose 45.1 ml/min Estimated GFR () 45.1 Estimated GFR (Non- 38.9 BUN/Creatinine Ratio 12.3 Random Glucose 101 mg/dl Calcium Level 8.6 mg/dl Assessment and Plan (1) MSSA (methicillin susceptible Staphylococcus aureus) septicemia Assessment & Plan: Two weeks of IV ceftriaxone with culture results from the will place PICC line today and if Creatinine stable will discharge to home. Stents will remain in place. Follow up with Urology and Infectious Disease will be arranged prior to discharge. (2) UTI (urinary tract infection) due to urinary indwelling catheter Assessment & Plan: Advanced prostrate Cancer causing obstructive uropathy, urosepsis see tx outlined above for bacteremia (3) Atrial fibrillation with RVR Assessment & Plan: will check dig level. dig and metoprolol being used for rate control. Xarelto will restart tonight. (4) Advance care planning
[2016-06-14] MEDS ORDERED: ERGOCALCIFEROL 50,000 INTER.UNIT CAP PO SCH (09:00)
[2016-06-14] MEDS ORDERED: METOPROLOL SUCC 50MG EXT REL TAB PO SCH (09:00)
--- NOTE | 2016-06-14 09:13 | Cardiology Follow-Up ---
Subjective Date of Service: Jun 14, 2016. Pt evaluation today including: conversation w/ patient, physical exam, lab review, review of studies, review of inpatient medication list History of Present Illness This is a very pleasant 66 year old gentleman who has had his cardiac care in the [place] area. He presented here with hypotension. He is awake and alert and can provide some history, although a lot of the history is from his . He has been having difficulty with urologic issues including urine ostomy tubes and stent placement recently. From the cardiovascular standpoint he has evidently a long history of atrial fibrillation, a number of years ago he evidently had left ventricular dysfunction (although the family is not too familiar with it) and was wearing a LifeVest. Evidently his cardiac function improved and the LifeVest was discontinued and an ICD was not recommended. He is not very aware of his atrial arrhythmia, apparently it was identified when he went in for routine test. He does not seem to have palpitations or other symptoms related to it. He was having a several week history of weakness and a 24-hour history of nausea , dizziness and dysuria. He has been feeling chills and feverish for several days as well, he has had diarrhea. He has not had chest discomfort. On arrival in the emergency room he was noted to have hypotension with a pressure of 67/47, and a rapid heart rate. He has been treated with beta- blockade and intravenous amiodarone for rate control. Prior to admission he was taking digoxin 0.25 mg daily (although his level was very low) as well as metoprolol succinate 50 mg daily and Xarelto 15 mg at bedtime which he took last 06/08/2016. He appeared to be septic, an echocardiogram done in the emergency room showed reasonably good left ventricular function and it appeared that his hypotension was not cardiac, probably sepsis. He was treated with antibiotics, intravenous amiodarone was continued since he was in atrial fibrillation with a rapid heart rate. Metoprolol was held due to hypotension. He has stabilized with a good blood pressure, his heart rate has been elevated. He has no complaints and is unaware of his heart rate. He is lying in bed. With increased medications his heart rate is under better control. Social History Smoking Status: Never Smoker History of Alcohol Use: No Review of Systems Respiratory: No shortness of breath Cardiac: No chest pain Medications Cardiovascular: Item Value Date Time Metoprolol 50 mg 06/14/16 0900 Succinate QAM/PO 06/14/16 0759 (Toprol Xl Tab) Metoprolol 100 mg 06/13/16 0900 Succinate QAM/PO 06/14/16 0758 (Toprol Xl Tab) Digoxin 0.25 mg 06/10/16 1600 (Lanoxin Tab) DAILY@1600/PO 06/13/16 1702 Aspirin 81 mg 06/10/16 0900 (Ecotrin Tab) DAILY/PO 06/14/16 0758 Atorvastatin 20 mg 06/10/16 0900 Calcium QAM/PO 06/14/16 0758 (Lipitor Tab) Potassium Chloride 20 meq 06/10/16 0900 (Klor-Con Tab) QAM/PO 06/14/16 0759 Objective Vital Signs Past 12 Hours Date Time Temp Pulse Resp B/P Pulse Ox O2 Delivery O2 Flow Rate FiO2 06/14/16 08:17 37.5 97 16 125/60 96 Room Air 06/14/16 08:00 Room Air 06/14/16 04:00 Room Air 06/14/16 03:20 36.4 98 17 125/81 96 Room Air 06/14/16 00:15 Room Air 06/14/16 00:11 37.3 105 18 120/84 97 Room Air Last Recorded Weight-Kilograms: 93.000 Intake & Output 8-Hour Column 06/13/16 06/14/16 06/14/16 16:00 00:00 08:00 Intake Total 752 ml 600 ml Output Total 600 ml 850 ml 1025 ml Balance 152 ml -250 ml -1025 ml 24-Hour Column 06/14/16 08:00 Intake Total 1352 ml Output Total 2475 ml Balance -1123 ml Physical Exam Constitutional: General Apperance: heathly-appearing Level of Distress: moderate distress Lungs: Respiratory effort: no dyspnea, good air movement Auscultation: breath sounds normal, no wheezing Cardiovascular: Heart Auscultation: no murmurs, no rubs, no gallops, tachycardia, irregular rate rhythm Peripheral Pulses: Bruits: none appreciated Extremities: no edema Data Laboratory Results: Last 24 Hours Test 06/14/16 05:29 06/14/16 08:10 White Blood Count 4.67 K/uL Red Blood Count 3.11 M/uL Hemoglobin 8.8 g/dL Hematocrit 26.9 % Mean Corpuscular Volume 86.5 fL Mean Corpuscular Hemoglobin 28.3 pg Mean Corpuscular Hemoglobin Concent 32.7 g/dl Platelet Count 247 K/uL Mean Platelet Volume 8.7 fL Neutrophils (%) (Auto) 79.6 % Lymphocytes (%) (Auto) 8.4 % Monocytes (%) (Auto) 7.3 % Eosinophils (%) (Auto) 3.6 % Basophils (%) (Auto) 0.2 % Neutrophils # (Auto) 3.72 K/uL Lymphocytes # (Auto) 0.39 K/uL Monocytes # (Auto) 0.34 K/uL Eosinophils # (Auto) 0.17 K/uL Basophils # (Auto) 0.01 K/uL RDW Standard Deviation 58.9 fL RDW Coefficient of Variation 18.5 % Immature Granulocyte % (Auto) 0.9 % Immature Granulocyte # (Auto) 0.04 K/uL Nucleated RBC Absolute Count (auto) 0.02 K/uL Nucleated Red Blood Cells % 0.4 % Toxic Granulation 1+ Large Platelets 1+ Anisocytosis PRESENT Sodium Level 140 mmol/L Potassium Level 4.0 mmol/L Chloride Level 107 mmol/L Carbon Dioxide Level 24 mmol/L Anion Gap 9.0 mmol/L Blood Urea Nitrogen 22 mg/dl Creatinine 1.80 mg/dl Est Creatinine Clear Calc Drug Dose 45.1 ml/min Estimated GFR () 45.1 Estimated GFR (Non- 38.9 BUN/Creatinine Ratio 12.3 Random Glucose 101 mg/dl Calcium Level 8.6 mg/dl Telemetry reviewed: Atrial fibrillation throughout, heart rate averaging a little bit under 100. Assessment and Plan #1. Atrial fibrillation with a rapid ventricular response: I can't tell a long he has been in the atrial fibrillation, an electrocardiogram from about one month ago showed sinus rhythm and I believe his arrhythmia is paroxysmal. He had been anticoagulated with Xarelto but that is on hold. Certainly he would be better off hemodynamically in sinus rhythm by don't think we need to consider cardioversion now. His heart rate remains somewhat high, but I think it is adequate. I think he needs to be on digoxin for his heart rate, however with his renal insufficiency his current dose may be too high over the long run, his level yesterday was acceptable and another is pending today. He doesn't know his dose, and sounds as though he takes a liquid at home for some reason. He has a cytotechnologist/cytology supervisor in his hometown who will need to follow-up with regard to long-term anticoagulation and cardioversion. I would start anticoagulation as soon as possible. #2. Cardiomyopathy: Based on his history it sounds as though he had a cardiomyopathy, but it appears to have recovered and his echo showed good left ventricular function. I don't think we have to do anything specifically regarding that. I don't know the cause of his cardiomyopathy, it is possible it was atrial fibrillation with rapid heart rates in the past. He does not have evidence or a history of ischemic heart disease. Thank you for allowing me to participate in his care.
[2016-06-14] MEDS: CEFTRIAXONE SOD INJ 2,000 MG in DEXTROSE 5% 50ML 50 ML IV SCH (10:13)
--- NOTE | 2016-06-14 11:44 | Progress Note ---
Subjective Date of Service: Jun 14, 2016. Subjective afebrile, no plan for stent removal. remains on ctx, tolerating well. no evetns. wbc 4.6, creat overall improved, 1.8. Repeat cultures from 06/10 ngtd x 2. Problem List Medical Problems: (1) Acute on chronic kidney failure Status: Acute (2) Atrial fibrillation with RVR Status: Acute (3) Septic shock Status: Acute Objective Vital Signs Date Time Temp Pulse Resp B/P Pulse Ox O2 Delivery O2 Flow Rate FiO2 06/14/16 08:17 37.5 97 16 125/60 96 Room Air 06/14/16 08:00 Room Air 06/14/16 04:00 Room Air 06/14/16 03:20 36.4 98 17 125/81 96 Room Air 06/14/16 00:15 Room Air 06/14/16 00:11 37.3 105 18 120/84 97 Room Air 06/13/16 20:07 37.2 96 16 122/74 95 Room Air 06/13/16 19:28 Room Air 06/13/16 17:02 102 06/13/16 16:00 Room Air 06/13/16 14:49 37.2 105 18 101/69 99 Room Air 06/13/16 13:52 102 96 06/13/16 12:33 36.7 94 18 98/59 97 Room Air 06/13/16 12:00 Room Air Laboratory Results Item Value Date Time Blood Culture - Preliminary Resulted 06/10/16 0950 Blood NO GROWTH TO DATE. Blood Culture - Preliminary Resulted 06/10/16 0945 Blood NO GROWTH TO DATE. Blood Culture - Final Complete 06/09/16 1315 Blood Staphylococcus Aureus Urine Culture - Final Complete 06/09/16 1444 Urine , Clean Catch Staphylococcus Aureus Last 24 Hours Test 06/14/16 05:29 06/14/16 08:10 White Blood Count 4.67 K/uL Red Blood Count 3.11 M/uL Hemoglobin 8.8 g/dL Hematocrit 26.9 % Mean Corpuscular Volume 86.5 fL Mean Corpuscular Hemoglobin 28.3 pg Mean Corpuscular Hemoglobin Concent 32.7 g/dl Platelet Count 247 K/uL Mean Platelet Volume 8.7 fL Neutrophils (%) (Auto) 79.6 % Lymphocytes (%) (Auto) 8.4 % Monocytes (%) (Auto) 7.3 % Eosinophils (%) (Auto) 3.6 % Basophils (%) (Auto) 0.2 % Neutrophils # (Auto) 3.72 K/uL Lymphocytes # (Auto) 0.39 K/uL Monocytes # (Auto) 0.34 K/uL Eosinophils # (Auto) 0.17 K/uL Basophils # (Auto) 0.01 K/uL RDW Standard Deviation 58.9 fL RDW Coefficient of Variation 18.5 % Immature Granulocyte % (Auto) 0.9 % Immature Granulocyte # (Auto) 0.04 K/uL Nucleated RBC Absolute Count (auto) 0.02 K/uL Nucleated Red Blood Cells % 0.4 % Toxic Granulation 1+ Large Platelets 1+ Anisocytosis PRESENT Sodium Level 140 mmol/L Potassium Level 4.0 mmol/L Chloride Level 107 mmol/L Carbon Dioxide Level 24 mmol/L Anion Gap 9.0 mmol/L Blood Urea Nitrogen 22 mg/dl Creatinine 1.80 mg/dl Est Creatinine Clear Calc Drug Dose 45.1 ml/min Estimated GFR () 45.1 Estimated GFR (Non- 38.9 BUN/Creatinine Ratio 12.3 Random Glucose 101 mg/dl Calcium Level 8.6 mg/dl Digoxin Level 1.1 ng/ml Assessment and Plan (1) MSSA (methicillin susceptible Staphylococcus aureus) septicemia Assessment & Plan: 06/10 cultures ngtd. on ctx. Isolate is cephalosporin sensitive, no need for IV Dapto. Placed on rocephin as this is once daily therapy, ease of use upon d/c from hospital, compared to ancef which is [id number]. Fevers resolved will need 21days from first negative culture as stents to remain in place, echo negative, will need weekly cbc, cmp, while on therapy. can follow with ID post d/c. ok for d/c when outpt abx in place and otherwise medically stable. (2) UTI (urinary tract infection) due to urinary indwelling catheter (3) Fever Continued [facility] stay due to: multiple IV medications needed Discharge planning: uncertain
[2016-06-14 11:54] VITALS: BP 113/70; PULSE 87; TEMP 37.1; O2SAT 96
[2016-06-14] MEDS ORDERED: CEFT1INJ26 IV ×2 (14:08→14:24)
[2016-06-14] MEDS ORDERED: TPRSR50 PO (14:13)
--- NOTE | 2016-06-14 14:30 | Discharge Instructions ---
Discharge Instructions Date of Service Jun 14, 2016. Admission Reason for Admission: Sepsis Discharge Discharge Diagnosis / Problem: MSSA Sepsis Discharge Goals Goal(s): Improve disease control Activity Recommendations Activity Limitations: per Instructions/Follow-up section Driving or Machine Use: no limitations . Instructions / Follow-Up Instructions / Follow-Up Primary Care Physician in 1 week Follow up with Dr. Almeida 1-2 weeks Follow up with Dr. Hernandez 2-3 weeks Current Hospital Diet Patient's current hospital diet: Renal Diet Discharge Diet Recommended Diet: Renal Diet Pending Studies Studies pending at discharge: no Medical Emergencies . Who to Call and When: Medical Emergencies: If at any time you feel your situation is an emergency, please call 911 immediately. . Non-Emergent Contact Non-Emergency issues call your: Primary Care Provider . Past History Medical & Surgical History: (1) MSSA (methicillin susceptible Staphylococcus aureus) septicemia . "Provider Documentation" section prepared by Siddhartha Moore. . Records And Tape Recordings Engineer Recommendations Records And Tape Recordings Engineer Recommendations: cbc, bmp weekly results to infectious disease. VTE Core Measure Inpt VTE Proph given/why not?: Treatment not indicated (on rivaroxaban)
[2016-06-14 14:43] VITALS: BP 113/70; PULSE 87; TEMP 37.1; O2SAT 96
[2016-06-14 16:32] VITALS: BP 129/73; PULSE 87; TEMP 37.1; O2SAT 96
[2016-06-14] MEDS: DIGOXIN 0.25 MG TAB PO SCH (16:34)
--- NOTE | 2016-06-20 17:51 | DISCHARGE SUMMARY ---
HISTORY OF PRESENT ILLNESS: Please see dictated H and P for full details of presentation. The patient is a 66-year-old gentleman who came in complaining of fever, diarrhea, abdominal pain, left external urostomy tube removed by Dr. Almeida. Internal stents were still in situ. Stents were inserted in December of 2015 due to prostate cancer causing obstructive uropathy. He started having subjective fevers 2 days prior to admission. He was nauseated, dry heaves, dizziness, headache, pain with urination. Was discovered to hypotensive with emergency room blood pressure of 67/47. He was admitted to the intensive care unit with methicillin-sensitive Staph aureus septicemia, urinary tract infection, vomiting and indwelling catheter, atrial fibrillation with rapid ventricular response. The patient was successfully resuscitated and cardiology consult was obtained by Dr. Morgan. The patient was in atrial fibrillation with rapid ventricular response. He had been anticoagulated and placed on amiodarone via drip and gave him also digoxin. He was not in cardiogenic shock. Echocardiogram was performed, showed an EF of 60-65%, normal LV thickness, normal wall motion . The patient was seen by Dr. Hernandez for infectious disease. Dr. Hernandez recommended Rocephin daily for 21 days from his first negative blood cultures. They will follow weekly CBC and CMP while on IV Rocephin. Outpatient followup was arranged for the patient at home for IV antibiotics. Time spent in review of the chart and discussion with the patient on the day of discharge 31 minutes. DISCHARGE DIAGNOSES: 1. Methicillin-sensitive Staph aureus sepsis. 2. Advanced prostate cancer. 3. Complicated urinary tract infection. [facility]
== END 2016-06-14 17:00 | disposition home or self-care (01) | DRG 871 ==
LOC: ENRESERVDT → ENRESERVTM → CANRESERV → C.EDB 12:59 → EDBEDREQ 15:37 → CANBEDREQ 15:54 → C.MSICU 16:01 → C.2E 16:40 → UNDODISIN 06-14 17:15
PROVIDERS: ADMIT Hospitalist; ATTEND Internal Medicine
DX: A41.01 Sepsis due to Methicillin susceptible Staphylococcus aureus (principal); N17.0 Acute kidney failure with tubular necrosis; R65.21 Severe sepsis with septic shock; N39.0 Urinary tract infection, site not specified; N18.4 Chronic kidney disease, stage 4 (severe); I42.9 Cardiomyopathy, unspecified; N13.30 Unspecified hydronephrosis; T83.098A Other mechanical complication of other urinary catheter, initial encounter; Y84.6 Urinary catheterization as the cause of abnormal reaction of the patient, or of later complication, without mention of misadventure at the time of the procedure; I48.91 Unspecified atrial fibrillation; Z85.46 Personal history of malignant neoplasm of prostate; N40.0 Benign prostatic hyperplasia without lower urinary tract symptoms; I12.9 Hypertensive chronic kidney disease with stage 1 through stage 4 chronic kidney disease, or unspecified chronic kidney disease; E87.6 Hypokalemia; I25.10 Atherosclerotic heart disease of native coronary artery without angina pectoris; E78.5 Hyperlipidemia, unspecified; Z79.01 Long term (current) use of anticoagulants

== ENCOUNTER → 2016-10-07 | Outpatient (CLI) | payer OTHER ==
[~2016-10-07] MED LIST changes: +CEFT1INJ26 IV; -METO-217 PO; -QUIN20TA30 PO; -SULF800T23 PO; +TPRSR50 PO
[2016-10-07 12:50] LABS: BLOOD UREA NITROGEN 27 mg/dl (7-18); BUN/CREATININE RATIO 15.8 (10-20)
[2016-10-07 12:54] LABS: PROSTATE SPECIFIC ANTIGEN 0.029 ng/ml (0.000-4.000)
== END | disposition home or self-care (01) ==
LOC: C.LAB 10:33
PROVIDERS: ATTEND Urology
DX: N39.0 Urinary tract infection, site not specified (principal)